=== PATIENT | female | born 1970 ===

== ENCOUNTER 2020-09-02 19:58 | Inpatient (IN) | payer MEDICAID, SELFPAY ==
[2020-09-02 20:10] VITALS: BP 138/91; PULSE 120; RESP 19; TEMP 37.1; O2SAT 86; O2SAT 99; BMI 21.9
--- NOTE | 2020-09-02 20:25 | ED.URI ---
HPI - URI/Sore Throat General Chief Complaint: Upper Respiratory Symptoms Stated Complaint: cough sob Time Seen by Provider: 09/02/20 20:25 Source: patient Mode of arrival: EMS Limitations: no limitations History of Present Illness HPI Narrative: shortness of breath for one week with fever, now with increasing shortness of breath, MD elicited complaint: fever and cough Onset (ago): day(s) Consistency: constant Severity: moderate Related Data Allergies Allergy/AdvReac Type Severity Reaction Status Date / Time apple Allergy Hives Verified 09/02/20 20:10 Review of Systems Constitutional: Constitutional: Reports no additional constitutional complaints Eyes: Eyes: Reports no additional eye complaints ENT: Denies dizziness Cardiovascular: Cardiovascular: Reports no additional cardiovascular complaints Respiratory: Respiratory: Reports as per HPI Gastrointestinal: Gastrointestinal: Reports no additional gastrointestinal complaints Genitourinary: Genitourinary: Reports no additional female genitourinary complaints Musculoskeletal: Musculoskeletal: Reports no additional musculoskeletal complaints Integumentary/Breasts: Skin/Breast: Denies rash Neurologic: Reports system reviewed and no additional complaints, except as documented, Denies dizziness and Denies Sensory deficit (Neuro) Psychiatric: Psychiatric: Denies anxiety [facility] Social History Social History Advance Directives: No Advance Directives Information Provided: No Physical Exam Vital Signs: Vital Signs: Last Vital Signs Temp 98.7 F 09/02/20 20:10 Pulse 121 H 09/02/20 21:24 Resp 19 09/02/20 20:10 BP 138/91 H 09/02/20 20:10 Pulse Ox 99 09/02/20 20:10 Body Mass Index 21.9 Const: Other: coughing short of breath Nutritional Appearance: average body habitus Orientation/consciousness: oriented to person and patient oriented x3 Limitations: no limitations HENMT: Head: Yes normal to inspection Ears: external ears normal General nose exam: Normal external nose present Mouth: Normal oral and palatal mucosa present and oropharynx normal Throat: Yes posterior oropharynx normal Eyes: General: appearance normal, both eyes and all related structures Neck: Other: supple Neck: Yes normal visual inspection Chest: Chest palpation & inspection: normal inspection of the chest Resp: Other: diffuse wheezing Cardio: Other: tachycardia Jugular venous distension: no JVD Heart sounds: S1 normal heart sound present and S2 normal heart sound present GI: Inspection: Yes normal to inspection Palpation (GI): Soft to palpation, nontender and No hepatosplenomegaly present Auscultation: normal bowel sounds : General: Yes no CVA tenderness Back/Spine/Pelvis: Back: no CVA tenderness Skin: General skin exam: no rashes or lesions noted Neuro: General: oriented to person and patient oriented x3 Cranial nerves: Yes CN's II-XII intact bilaterally Motor exam (neuro): 5/5 motor strength present throughout Sensory Exam: No Sensory deficit (Neuro) Extrem: General: Yes normal to inspection Psych: Appearance: grossly normal Course Course Course Narrative: Patient with symptoms consistent with COVID, she is hypoxic and has to be admitted MDM - URI/Sore Throat Differential Diagnosis Differential diagnosis: Likely upper respiratory infection, viral infection and bronchitis Lab Data Result diagrams: 09/02/20 20:59 09/02/20 20:59 Labs: Lab Results 09/02/20 09/02/20 09/02/20 Range/Units 20:59 20:59 20:59 WBC 12.7 H (4.8-10.8) X10*3/uL RBC 5.20 (4.20-5.50) X10*6/uL Hgb 12.1 (12.0-16.0) g/dl Hct 40.4 (37-47) % MCV 77.7 L (80-98) fL MCH 23.3 L (27.0-33.0) pg MCHC 30.0 L (31.0-35.0) g/dl RDW 16.8 H (11.0-16.0) % Plt Count 523 H (160-400) X10*3/uL MPV 9.7 (9.4-12.3) fL Immature Gran % (Auto) 0.2 (0.0-0.4) % Neut % (Auto) 71.5 (45-73) % Lymph % (Auto) 11.8 L (20-40) % [place] % (Auto) 6.0 (2-11) % Eos % (Auto) 9.9 H (0-4) % Baso % (Auto) 0.6 (0-2) % Lymph # (Auto) 1.5 (1.2-4.9) X10*3/uL [place] # (Auto) 0.8 (0.1-1.2) X10*3/uL Eos # (Auto) 1.3 H (0.0-0.4) X10*3/uL Baso # (Auto) 0.1 (0.0-0.2) X10*3/uL Abs Immat Gran (auto) 0.03 (0.00-0.03) X10*3/uL Absolute Neuts (auto) 9.1 H (2.0-8.3) X10*3/uL Absolute Nucleated RBC 0.000 (0.0-0.012) X10*3/uL Nucleated RBC % (auto) 0.0 (0.0-0.2) /100WBC Sodium 142 (135-145) mmol/L Potassium 4.1 (3.3-5.1) mmol/l Chloride 104 (96-108) mmol/L Carbon Dioxide 28 (22-29) mmol/L Anion Gap 14 (12-20) BUN 15 (9-16) mg/dL Creatinine 0.87 (0.5-1.4) mg/dL Estim Creat Clear Calc 76.8 Estimated GFR > 60 Random Glucose 130 H (60-115) mg/dL Lactic Acid (0.5-2.0) mmol/L Calcium 9.3 (8.4-10.2) mg/dL Coronavirus (PCR) NEGATIVE (Negative) Influenza Type A (PCR) NEGATIVE (Negative) Influenza Type B (PCR) NEGATIVE (Negative) RSV RNA Qual (PCR) NEGATIVE (Negative) 09/02/20 Range/Units 20:59 WBC (4.8-10.8) X10*3/uL RBC (4.20-5.50) X10*6/uL Hgb (12.0-16.0) g/dl Hct (37-47) % MCV (80-98) fL MCH (27.0-33.0) pg MCHC (31.0-35.0) g/dl RDW (11.0-16.0) % Plt Count (160-400) X10*3/uL MPV (9.4-12.3) fL Immature Gran % (Auto) (0.0-0.4) % Neut % (Auto) (45-73) % Lymph % (Auto) (20-40) % [place] % (Auto) (2-11) % Eos % (Auto) (0-4) % Baso % (Auto) (0-2) % Lymph # (Auto) (1.2-4.9) X10*3/uL [place] # (Auto) (0.1-1.2) X10*3/uL Eos # (Auto) (0.0-0.4) X10*3/uL Baso # (Auto) (0.0-0.2) X10*3/uL Abs Immat Gran (auto) (0.00-0.03) X10*3/uL Absolute Neuts (auto) (2.0-8.3) X10*3/uL Absolute Nucleated RBC (0.0-0.012) X10*3/uL Nucleated RBC % (auto) (0.0-0.2) /100WBC Sodium (135-145) mmol/L Potassium (3.3-5.1) mmol/l Chloride (96-108) mmol/L Carbon Dioxide (22-29) mmol/L Anion Gap (12-20) BUN (9-16) mg/dL Creatinine (0.5-1.4) mg/dL Estim Creat Clear Calc Estimated GFR Random Glucose (60-115) mg/dL Lactic Acid 1.3 (0.5-2.0) mmol/L Calcium (8.4-10.2) mg/dL Coronavirus (PCR) (Negative) Influenza Type A (PCR) (Negative) Influenza Type B (PCR) (Negative) RSV RNA Qual (PCR) (Negative) Discharge Plan Discharge Clinical Impression: Viral infection, Hypoxia Upper respiratory infection Qualifiers: URI type: unspecified viral URI Qualified Code(s): J06.9 - Acute upper respiratory infection, unspecified Patient Disposition: Admitted As Inpatient
--- NOTE | 2020-09-02 20:38 | XR_ITS ---
EXAMINATION: XR CHEST CLINICAL INFORMATION: Shortness of breath. Likely Covid. COMPARISON: None TECHNIQUE: Frontal view of the chest was obtained. FINDINGS: Cardiac silhouette is normal in size. The lungs are well aerated. Subtle coarsening of the interstitial markings, nonspecific. No pleural effusion or pneumothorax. XR/XR chest 1V IMPRESSION: Subtle diffuse coarsening of the interstitial markings. This is a nonspecific finding, however, would be consistent with a mild viral infiltrate. Follow-up imaging recommended status post treatment to ensure resolution.
[2020-09-02 21:08] LABS: MANUAL DIFF FLAG NO
[2020-09-02 21:11] LABS: Basophils Absolute Auto 0.1 X10*3/uL (0.0-0.2); Basophils Percent Auto 0.6 % (0-2); Eosinophils Absolute Auto 1.3 X10*3/uL (0.0-0.4); Eosinophils Percent Auto 9.9 % (0-4); Hematocrit 40.4 % (37-47); Hemoglobin 12.1 g/dl (12.0-16.0); Imm Gran Abs Auto 0.03 X10*3/uL (0.00-0.03); Imm Gran Pct Auto 0.2 % (0.0-0.4); Lymphocytes Absolute Auto 1.5 X10*3/uL (1.2-4.9); Lymphocytes Percent Auto 11.8 % (20-40); Mean Corpuscular Hemoglobin 23.3 pg (27.0-33.0); Mean Corpuscular Volume 77.7 fL (80-98); Mean Platelet Volume 9.7 fL (9.4-12.3); Monocytes Absolute Auto 0.8 X10*3/uL (0.1-1.2); Neutrophils Absolute Auto 9.1 X10*3/uL (2.0-8.3); Neutrophils Percent Auto 71.5 % (45-73); Platelet Count 523 X10*3/uL (160-400); Red Cell Distribution Width 16.8 % (11.0-16.0); White Blood Count 12.7 X10*3/uL (4.8-10.8)
[2020-09-02] MEDS: Albuterol Sulfate 90 MCG 8 GM INHALER 4 PUFF INHALE (21:23)
[2020-09-02 21:24] VITALS: PULSE 121; O2SAT 98
[2020-09-02 21:34] LABS: Lactic Acid 1.3 mmol/L (0.5-2.0)
[2020-09-02 21:36] LABS: Anion Gap 14 (12-20); Blood Urea Nitrogen 15 mg/dL (9-16); Calcium 9.3 mg/dL (8.4-10.2); Carbon Dioxide 28 mmol/L (22-29); Chloride 104 mmol/L (96-108); Creatinine Clr Calc Pharmacy 76.8; Estimated Glomerular Filt Rate > 60; Glucose Random 130 mg/dL (60-115); Potassium 4.1 mmol/l (3.3-5.1); Sodium 142 mmol/L (135-145)
[2020-09-02 21:50] LABS: Influenza A PCR NEGATIVE (Negative); Influenza B PCR NEGATIVE (Negative); Resp Syncy Virus RNA Qual PCR NEGATIVE (Negative); SARS COV2 PCR INHOUSE NEGATIVE (Negative)
[2020-09-02 22:37] VITALS: BP 134/96; PULSE 117; RESP 21; TEMP 37.4; O2SAT 95
[2020-09-02 23:05] LABS: Procalcitonin 0.02 ng/mL
[2020-09-02 23:25] VITALS: BP 145/89; PULSE 106; RESP 19; TEMP 37.2; O2SAT 98
--- NOTE | 2020-09-02 23:30 | P.HPHOSP_ITS ---
History of Present Illness Date of Service: 09/02/20 Chief Complaint: Shortness of breath This is a 50-year-old female with no significant past medical history who presents to the hospital with complaints of more than 1 week shortness of breath, coughing, sputum production. Patient is also complaining of a headache that is chronic that has been become more frequent. She also had a fever at home of 101, low appetite, low oral intake, weakness, and generalized fatigue. Patient reports that 2 of the people in her apartment building have been positive with COVID-19 and she has contact with 1 of them. She denies having any nausea or vomiting, no diarrhea, no lower extremity edema, no urinary symptoms. No change in vision, no chest pain, no palpitations. On arrival to the ED patient has a temp of 98.7?, heart rate of 120, respiratory rate of 19, blood pressure 138/91, found to be in the mid 80s on room air, with increased requirement of O2 in the ED currently on 4 L satting 88%. Bump 2 in 6 L. Labs are significant for WBC count 12.7, hemoglobin of 12.1, hematocrit of 40.4, sodium of 142, potassium 4.1, rapid COVID test negative, negative influenza, and RSV. Chest x-ray demonstrates diffuse coarsening of interstitial marking. This would be consistent with a mild viral infiltrate Past medical history: Denies Surgical history: Denies Family history: Diabetes, hypertension Social history: Comes from home, denies any tobacco alcohol or illicit drugs Review of Systems Review of Systems: Review of system is negative otherwise except for as mentioned in HPI Yes all other systems are reviewed and are negative ENT: Denies dizziness Neurologic: Reports system reviewed and no additional complaints, except as documented, Denies dizziness and Denies Sensory deficit (Neuro) [facility] Social History Alcohol intake: never Smoked in Last 30 Days: No Use of substances other than those prescribed or required for medical reasons: No Advance Directives: No Advance Directives Information Provided: No Meds Allergies Allergy/AdvReac Type Severity Reaction Status Date / Time apple Allergy Hives Verified 09/02/20 20:10 Home Medications Medication Instructions Recorded Confirmed Type No Known Home Meds 09/03/20 09/03/20 History Physical Exam Vital Signs and Narrative: Vital Signs: Last Vital Signs Temp 99.0 F 09/02/20 23:25 Pulse 106 H 09/02/20 23:25 Resp 19 09/02/20 23:25 BP 145/89 H 09/02/20 23:25 Pulse Ox 98 09/02/20 23:25 Body Mass Index 21.9 Const: General: cooperative, no acute distress and ill appearing Orientation/consciousness: patient oriented x3 Eyes: General: appearance normal, both eyes and all related structures Resp: Other: Congested, coughing during exam Effort & Inspection: normal respiratory effort and able to speak in complete sentences Cardio: Rate: regular rate Rhythm: regular rhythm GI: Palpation (GI): Soft to palpation Auscultation: normal bowel sounds Neuro: General: patient oriented x3 Cognition (Neuro): normal cognition Sensory Exam: No Sensory deficit (Neuro) Extrem: General: Yes normal to inspection and Yes no pedal edema Results Labs CBC and Chem 7: 09/02/20 20:59 09/02/20 20:59 Labs: Laboratory Results - last 24 hr 09/02/20 09/02/20 09/02/20 20:59 20:59 20:59 MCV 77.7 L MCH 23.3 L MCHC 30.0 L RDW 16.8 H Plt Count 523 H MPV 9.7 Immature Gran % (Auto) 0.2 Neut % (Auto) 71.5 Lymph % (Auto) 11.8 L [place] % (Auto) 6.0 Eos % (Auto) 9.9 H Baso % (Auto) 0.6 Lymph # (Auto) 1.5 [place] # (Auto) 0.8 Eos # (Auto) 1.3 H Baso # (Auto) 0.1 Abs Immat Gran (auto) 0.03 Absolute Neuts (auto) 9.1 H Absolute Nucleated RBC 0.000 Nucleated RBC % (auto) 0.0 Anion Gap 14 Estim Creat Clear Calc 76.8 Estimated GFR > 60 Random Glucose 130 H Lactic Acid Calcium 9.3 Procalcitonin Coronavirus (PCR) NEGATIVE Influenza Type A (PCR) NEGATIVE Influenza Type B (PCR) NEGATIVE RSV RNA Qual (PCR) NEGATIVE 09/02/20 09/02/20 20:59 20:59 MCV MCH MCHC RDW Plt Count MPV Immature Gran % (Auto) Neut % (Auto) Lymph % (Auto) [place] % (Auto) Eos % (Auto) Baso % (Auto) Lymph # (Auto) [place] # (Auto) Eos # (Auto) Baso # (Auto) Abs Immat Gran (auto) Absolute Neuts (auto) Absolute Nucleated RBC Nucleated RBC % (auto) Anion Gap Estim Creat Clear Calc Estimated GFR Random Glucose Lactic Acid 1.3 Calcium Procalcitonin 0.02 Coronavirus (PCR) Influenza Type A (PCR) Influenza Type B (PCR) RSV RNA Qual (PCR) Imaging Radiologist's Impressions: Impressions Chest X-Ray 09/02/20 20:38 IMPRESSION: Subtle diffuse coarsening of the interstitial markings. This is a nonspecific finding, however, would be consistent with a mild viral infiltrate. Follow-up imaging recommended status post treatment to ensure resolution. Assessment and Plan (1) Acute respiratory failure with hypoxia: Status: Acute (2) Pneumonia: Qualifiers: Pneumonia type: due to unspecified organism Laterality: bilateral Lung location: unspecified part of lung Qualified Code(s): J18.9 - Pneumonia, unspecified organism Status: Acute (3) Upper respiratory infection: Qualifiers: URI type: unspecified viral URI Qualified Code(s): J06.9 - Acute upper respiratory infection, unspecified Status: Acute This is a 50-year-old female with no significant past medical history who presents to the hospital with shortness of breath found to be hypoxic. # acute hypoxic respiratory failure - secondary to interstitial pneumonia although COVID-19 rapid PCR negative - had contact with COVID-19 infected person - chest x-ray typical of viral infection - hypoxic with O2 in the 80s on 4 L of oxygen Plan: - will start her on IV antibiotics, dexamethasone, - O2 supplement as required - monitor respiratory status - will also send for oral panel, strep and Legionella antigens # pneumonia - COVID-19 versus bacterial versus other viral infection - will obtain respiratory viral panel, start patient on IV antibiotics and dexamethasone, follow blood cultures - monitor respiratory status - consult infectious disease for guidance DVT prophylaxis:Lovenox
[2020-09-03] VITALS (10 sets, daily range): BP systolic 124–142; BP diastolic 71–92; PULSE 69–130; RESP 18–22; TEMP 36.4–37.2; O2SAT 92–98
[2020-09-03] MEDS: 0.9 % Sodium Chloride Flush 3 ML SYRINGE IVFLUSH ×4 (00:26→20:03)
[2020-09-03] MEDS: Benzonatate 100 MG CAPSULE 200 MG PO ×2 (03:11→17:08)
[2020-09-03 06:34] LABS: MANUAL DIFF FLAG NO
[2020-09-03 07:01] LABS: Basophils Absolute Auto 0.1 X10*3/uL (0.0-0.2); Basophils Percent Auto 0.8 % (0-2); Eosinophils Absolute Auto 1.1 X10*3/uL (0.0-0.4); Hematocrit 38.9 % (37-47); Hemoglobin 11.7 g/dl (12.0-16.0); Imm Gran Abs Auto 0.03 X10*3/uL (0.00-0.03); Imm Gran Pct Auto 0.3 % (0.0-0.4); Lymphocytes Absolute Auto 1.9 X10*3/uL (1.2-4.9); Lymphocytes Percent Auto 16.6 % (20-40); Mean Corpuscular HGB Conc 30.1 g/dl (31.0-35.0); Mean Corpuscular Hemoglobin 23.5 pg (27.0-33.0); Mean Corpuscular Volume 78.1 fL (80-98); Mean Platelet Volume 9.8 fL (9.4-12.3); Monocytes Absolute Auto 0.8 X10*3/uL (0.1-1.2); Monocytes Percent Auto 6.9 % (2-11); Neutrophils Absolute Auto 7.7 X10*3/uL (2.0-8.3); Neutrophils Percent Auto 66.4 % (45-73); Platelet Count 490 X10*3/uL (160-400); Red Blood Count 4.98 X10*6/uL (4.20-5.50); White Blood Count 11.7 X10*3/uL (4.8-10.8)
[2020-09-03 07:12] LABS: Anion Gap 14 (12-20); Blood Urea Nitrogen 15 mg/dL (9-16); Carbon Dioxide 28 mmol/L (22-29); Chloride 105 mmol/L (96-108); Creatinine Clr Calc Pharmacy 81.5; Estimated Glomerular Filt Rate > 60; Glucose Random 114 mg/dL (60-115); Sodium 143 mmol/L (135-145)
[2020-09-03] MEDS: cefTRIAXone sodium 1 GM in 0.9 % Sodium Chloride 50 ML IV (07:42)
--- NOTE | 2020-09-03 07:45 | PC.NURSE ---
Pt pale, tripoding, LS I/E wheezing throughout. Sinus tach on tele. Dr Pruitt aware, plan for 1 hour long treatment and CT of chest.
--- NOTE | 2020-09-03 07:59 | CT_ITS ---
EXAMINATION: CT ANGIOGRAM OF THE CHEST WITH AND WITHOUT CONTRAST (CT PULMONARY ANGIOGRAM FOR PE) CLINICAL INFORMATION: Reason for Exam Severe shortness of breath COVID negative COMPARISON: None TECHNIQUE: Prior to contrast administration, noncontrast localization images were obtained. Subsequently, multidetector volumetric imaging was performed from the thoracic inlet to below the diaphragms following the administration of 80 mL Omnipaque 350 intravenous contrast. No contrast reaction reported Sagittal, coronal, and MIP oblique sagittal reformatted images were obtained on the CT workstation, uploaded to PACS, and reviewed. This CT examination was performed using dose optimization techniques as appropriate, variously including the following: *Automated exposure control *Adjustment of mA and/or kV according to patient size (this includes techniques or standardized protocols for targeted exams where dose is matched to indication/reason for exam; i.e. extremities or head) *Use of iterative reconstruction technique Total exam dose-length product 226 mGy-cm FINDINGS: QUALITY OF STUDY/CONTRAST BOLUS: Satisfactory. PULMONARY ARTERIES: No central or segmental pulmonary emboli. THORACIC AORTA: No aneurysm or dissection. LUNG: The lungs are well-expanded with patchy groundglass opacity in both upper lobes adjacent to the mediastinum with peribronchial wall thickening, minimal debris within the right upper lobe bronchi,. Peribronchial thickening with minimal ground glass opacities seen in both lower lobes. No consolidation or mass seen. PLEURA: No pleural effusion or pneumothorax. MEDIASTINUM: The heart size is normal. No pericardial effusion seen. Central trachea and the bronchi widely patent. There is no abnormal mediastinal lymph nodes or mass seen. No evidence of septal bowing or right heart strain. CHEST WALL/AXILLA: No axillary or internal mammary lymphadenopathy. OSSEOUS STRUCTURES: No acute or suspicious osseous abnormality. UPPER ABDOMEN: The liver is diffusely attenuated without any focal lesion or intrahepatic ductal dilatation. Visualized spleen, pancreas and bilateral adrenal glands are unremarkable. No reflux of contrast into the hepatic veins to suggest elevated right heart pressures. CT/CT angio chest PE protocol IMPRESSION: No evidence of PE. No evidence of dissection. Bilateral upper and lower lobe disease predominantly in both upper lobes. Groundglass opacity seen in both upper lobes adjacent to the mediastinum are suspicious of Covid like inflammation. VTE: negative
[2020-09-03] MEDS: Albuterol/Iprat 2.5/0.5MG 3 ML AMPUL.NEB INHALE (08:30)
[2020-09-03] MEDS: Albuterol Sulfate (0.083%) 2.5 MG/3 ML VIAL.NEB 5 MG INHALE (08:30)
[2020-09-03] MEDS: Azithromycin 500 MG TABLET PO (09:12)
[2020-09-03] MEDS: dexAMETHasone sod phosphate 4 MG/ML VIAL 6 MG IVPUSH (09:13)
--- NOTE | 2020-09-03 09:13 | PC.NURSE ---
S/P treatment pt verbally reports feeling sl better, work of breathing sl improved. sinus tach on tele in 120s, sat 94% on 4lpm via nc. Awaiting CT scan
[2020-09-03] MEDS: iohexoL 350 MG/ML 100 ML INFUS..BTL 65 ML IV (10:01)
--- NOTE | 2020-09-03 11:48 | P.PNIM_ITS ---
Subjective Subjective Date of Service: 09/03/20 Interval History: Admitted for acute hypoxic respiratory failure Reports ongoing dry cough, no significant shortness of breath Review of Systems Review of Systems: Yes all other systems are reviewed and are negative Constitutional Constitutional: Denies chills and Denies fever(s) Cardiovascular Cardiovascular: Denies chest pain Respiratory Respiratory: Reports cough Gastrointestinal Gastrointestinal: Denies abdominal pain Physical Exam Vital Signs: Vital Signs: Last Vital Signs Temp 98.8 F 09/03/20 10:02 Pulse 127 H 09/03/20 10:02 Resp 19 09/03/20 10:02 BP 138/80 09/03/20 10:02 Pulse Ox 97 09/03/20 07:45 Body Mass Index 21.9 Const: Nutritional Appearance: well nourished Orientation/consciousness: patient oriented x3 HENMT: Head: Yes normocephalic and Yes atraumatic Eyes: Sclerae: sclerae normal Chest: Chest palpation & inspection: normal inspection of the chest Resp: Auscultation: wheezes expiratory wheezes and scattered wheezes Cardio: Rate: tachycardic Rhythm: regular rhythm GI: Palpation (GI): Soft to palpation and nontender Skin: General skin exam: no rashes or lesions noted Neuro: General: patient oriented x3 Cranial nerves: Yes CN's II-XII intact bilaterally and Yes Bilaterally intact EOM present Extrem: General: Yes normal to inspection Objective Data Current Medications Generic Name Dose Route Start Last Admin Trade Name Freq PRN Reason Stop Dose Admin Acetaminophen 650 mg 09/02/20 23:28 Acetaminophen 325 Mg Tablet PO Q6H PRN Pain, Mild (Pain Scale 1-3) Azithromycin 500 mg 09/03/20 06:00 09/03/20 09:12 Azithromycin 500 Mg Tablet PO 500 mg Q24H TEE Administration Benzonatate 200 mg 09/03/20 02:40 09/03/20 03:11 Benzonatate 100 Mg Capsule PO 200 mg TID PRN Administration Cough Dexamethasone Sodium Phosphate 6 mg 09/03/20 09:00 09/03/20 09:13 Dexamethasone Sod Phosphate 4 Mg/Ml Vial IVPUSH 6 mg DAILY TEE Administration Docusate Sodium 100 mg 09/02/20 23:28 Docusate Sodium 100 Mg Capsule PO DAILY PRN Constipation Enoxaparin Sodium 40 mg 09/02/20 23:30 09/03/20 02:56 Enoxaparin Sodium 40 Mg/0.4 Ml Syringe SUBCUT Not Given Q24H [facility] Ceftriaxone Sodium 1 gm/ 50 mls @ 100 mls/hr 09/03/20 06:00 09/03/20 09:12 Sodium Chloride IV Infused Q24H [facility] Infusion Ondansetron HCl 4 mg 09/02/20 23:28 Ondansetron Hcl 4 Mg/2 Ml Vial IVPUSH Q8H PRN Nausea and Vomiting Sodium Chloride 3 ml 09/03/20 00:00 09/03/20 07:42 0.9 % Sodium Chloride Flush 3 Ml Syringe IVFLUSH 3 ml QSHIFT TEE Administration Labs CBC & Chem 7: 09/03/20 06:20 09/03/20 06:20 Assessment and Plan (1) Acute respiratory failure with hypoxia: Status: Acute (2) Pneumonia: Status: Acute (3) Upper respiratory infection: Status: Acute Assessment and Plan: This is a 50-year-old female with history of anxiety who presents to the hospital with shortness of breath found to be hypoxic. acute hypoxic respiratory failure Pneumonia - viral vs bacterial vs covid19 related Imaging showing groundglass opacities, although COVID-19 rapid PCR negative -Continue ceftriaxone, azithromycin for now -Continue dexamethasone -O2 supplement as required -RPP, strep and Legionella antigens pending -ID consult pending -isolation precautions DVT prophylaxis:Lovenox This case was discussed with Dr. Christiansen
--- NOTE | 2020-09-03 12:11 | ECG_ITS ---
Test Reason : HOSP Blood Pressure : / mmHG Vent. Rate : 123 BPM Atrial Rate : 123 BPM P-R Int : 114 ms QRS Dur : 074 ms QT Int : 298 ms P-R-T Axes : 068 074 045 degrees QTc Int : 426 ms Artfiact in tracing Sinus tachycardia Cannot rule out Anterior infarct , age undetermined - more likely from lead placement Nonspecific ST and T wave abnormality Borderline ECG No previous ECGs available Referred By: Jancie Mccullough Electronically Signed By:NAHEED MEDEL
[2020-09-03 13:51] LABS: Adenovirus PCR Not Detected (Not Detect.); Bordetella parapertussis PCR Not Detected (Not Detect.); Bordetella pertussis PCR Not Detected (Not Detect.); Chlamydia pneumoniae PCR Not Detected (Not Detect.); Coronavirus 229E PCR Not Detected (Not Detect.); Coronavirus HKU1 PCR Not Detected (Not Detect.); Coronavirus NL63 PCR Not Detected (Not Detect.); Coronavirus OC43 PCR Not Detected (Not Detect.); Human metapneumovirus PCR Not Detected (Not Detect.); Influenza A PCR Not Detected (Not Detect.); Influenza B PCR Not Detected (Not Detect.); Mycoplasma pneumoniae PCR Not Detected (Not Detect.); Parainfluenza 1 PCR Not Detected (Not Detect.); Parainfluenza 2 PCR Not Detected (Not Detect.); Parainfluenza 3 PCR Not Detected (Not Detect.); Parainfluenza 4 PCR Not Detected (Not Detect.); RSV PCR Not Detected (Not Detect.); Rhino/Enterovirus PCR Not Detected (Not Detect.); SARS-CoV-2 PCR Not Detected (Not Detect.)
--- NOTE | 2020-09-03 17:39 | PC.NURSE ---
Patient sustaining in the mid to high 120s on tele, no complaint of chest pain, MD made aware. EKG : Sinus tachy, MD aware and will monitor. Patient sats 92-93% on 4.5lpm n/c. will continue to monitor.
[2020-09-03] MEDS: guaiFENesin DM 100/10/5 ML 5 ML SYRUP PO (21:40)
[2020-09-03] MEDS: Enoxaparin Sodium 40 MG/0.4 ML SYRINGE SUBCUT (22:52)
[2020-09-04] VITALS (8 sets, daily range): BP systolic 137–177; BP diastolic 82–100; PULSE 89–130; RESP 18–20; TEMP 35.7–37.1; O2SAT 5–99
[2020-09-04] MEDS: Azithromycin 500 MG TABLET PO (06:05)
[2020-09-04] MEDS: cefTRIAXone sodium 1 GM in 0.9 % Sodium Chloride 50 ML IV (06:06)
[2020-09-04] MEDS: dexAMETHasone sod phosphate 4 MG/ML VIAL 6 MG IVPUSH (08:27)
[2020-09-04] MEDS: 0.9 % Sodium Chloride Flush 3 ML SYRINGE IVFLUSH ×3 (08:27→23:21)
[2020-09-04] MEDS: 0.9 % Sodium Chloride 1,000 ML 999 ML IVCONT (10:27)
--- NOTE | 2020-09-04 10:40 | HO.PM.IMPN ---
Subjective Subjective Date of Service: 09/04/20 Review of Systems Review of Systems: Yes all other systems are reviewed and are negative Constitutional Constitutional: Denies chills and Denies fever(s) Cardiovascular Cardiovascular: Denies chest pain and Reports dyspnea Respiratory Respiratory: Reports cough and Reports dyspnea Gastrointestinal Gastrointestinal: Denies abdominal pain Physical Exam Vital Signs: Vital Signs: Last Vital Signs Temp 96.2 F L 09/04/20 08:00 Pulse 127 H 09/04/20 08:00 Resp 20 09/04/20 08:00 BP 146/100 H 09/04/20 08:00 Pulse Ox 94 09/04/20 08:00 Body Mass Index 21.9 Const: General: alert and awake Nutritional Appearance: well nourished Orientation/consciousness: patient oriented x3 HENMT: Head: Yes normocephalic and Yes atraumatic Eyes: Sclerae: sclerae normal Chest: Chest palpation & inspection: normal inspection of the chest Resp: Effort & Inspection: tachypneic Auscultation: wheezes expiratory wheezes, inspiratory wheezes and throughout Cardio: Rate: regular rate Rhythm: regular rhythm GI: Palpation (GI): Soft to palpation and nontender Skin: General skin exam: no rashes or lesions noted Neuro: General: patient oriented x3 Cranial nerves: Yes CN's II-XII intact bilaterally and Yes Bilaterally intact EOM present Extrem: General: Yes normal to inspection Objective Data Current Medications Generic Name Dose Route Start Last Admin Trade Name Freq PRN Reason Stop Dose Admin Acetaminophen 650 mg 09/02/20 23:28 Acetaminophen 325 Mg Tablet PO Q6H PRN Pain, Mild (Pain Scale 1-3) Albuterol/Ipratropium 3 ml 09/04/20 12:00 Albuterol/Iprat 2.5/0.5mg 3 Ml Ampul.Neb INHALE RQ4H WHILE AWAKE TEE Azithromycin 500 mg 09/03/20 06:00 09/04/20 06:05 Azithromycin 500 Mg Tablet PO 500 mg Q24H TEE Administration Benzonatate 200 mg 09/03/20 02:40 09/03/20 17:08 Benzonatate 100 Mg Capsule PO 200 mg TID PRN Administration Cough Dexamethasone Sodium Phosphate 6 mg 09/03/20 09:00 09/04/20 08:27 Dexamethasone Sod Phosphate 4 Mg/Ml Vial IVPUSH 6 mg DAILY TEE Administration Docusate Sodium 100 mg 09/02/20 23:28 Docusate Sodium 100 Mg Capsule PO DAILY PRN Constipation Enoxaparin Sodium 40 mg 09/02/20 23:30 09/03/20 22:52 Enoxaparin Sodium 40 Mg/0.4 Ml Syringe SUBCUT 40 mg Q24H TEE Administration Guaifenesin/Dextromethorphan 5 ml 09/03/20 21:09 09/03/20 21:40 Guaifenesin Dm 100/10/5 Ml 5 Ml Syrup PO 5 ml Q6H PRN Administration cough Ceftriaxone Sodium 1 gm/ 50 mls @ 100 mls/hr 09/03/20 06:00 09/04/20 06:51 Sodium Chloride IV Infused Q24H TEE Infusion Sodium Chloride 1,000 mls @ 999 mls/hr 09/04/20 09:41 09/04/20 10:27 Ns IVCONT 09/04/20 10:41 999 mls/hr .Q1H1M ONE Administration Levalbuterol HCl 1.25 mg 09/03/20 12:11 Levalbuterol Hcl 1.25 Mg/0.5 Ml Vial.Neb INHALE Q4H PRN Shortness of Breath Ondansetron HCl 4 mg 09/02/20 23:28 Ondansetron Hcl 4 Mg/2 Ml Vial IVPUSH Q8H PRN Nausea and Vomiting Sodium Chloride 3 ml 09/03/20 00:00 09/04/20 08:27 0.9 % Sodium Chloride Flush 3 Ml Syringe IVFLUSH 3 ml QSHIFT TEE Administration Labs CBC & Chem 7: 09/03/20 06:20 09/03/20 06:20 Microbiology Microbiology Results: Microbiology 09/02/20 20:59 Blood - Venous Blood Culture - Preliminary No growth after 24 hours. 09/02/20 20:59 Blood - Venous Blood Culture - Preliminary No growth after 24 hours. Assessment and Plan (1) Acute respiratory failure with hypoxia: Status: Acute (2) Pneumonia: Status: Acute (3) Upper respiratory infection: Status: Acute Assessment and Plan: This is a 50-year-old female with history of anxiety who presents to the hospital with shortness of breath found to be hypoxic. acute hypoxic respiratory failure Pneumonia Imaging showing groundglass opacities, although COVID-19 rapid PCR negative Respiratory pathogen panel negative -Continue ceftriaxone, azithromycin -Continue dexamethasone -Continue isolation for now -O2 supplement as required -strep and Legionella antigens pending -ID consult pending -Pulmonary consult pending sinus tachycardia likely r/t breathing treatments -check tsh, cbc DVT prophylaxis:Lovenox This case was discussed with Dr. Christiansen
[2020-09-04 10:46] LABS: Basophils Absolute Auto 0.1 X10*3/uL (0.0-0.2); Basophils Percent Auto 0.3 % (0-2); Eosinophils Absolute Auto 0.2 X10*3/uL (0.0-0.4); Eosinophils Percent Auto 0.7 % (0-4); Hematocrit 40.3 % (37-47); Hemoglobin 11.6 g/dl (12.0-16.0); Imm Gran Abs Auto 0.09 X10*3/uL (0.00-0.03); Imm Gran Pct Auto 0.4 % (0.0-0.4); Lymphocytes Absolute Auto 0.8 X10*3/uL (1.2-4.9); MANUAL DIFF FLAG SCAN; Mean Corpuscular HGB Conc 28.8 g/dl (31.0-35.0); Mean Corpuscular Hemoglobin 22.7 pg (27.0-33.0); Mean Corpuscular Volume 78.9 fL (80-98); Mean Platelet Volume 10.2 fL (9.4-12.3); Monocytes Absolute Auto 0.5 X10*3/uL (0.1-1.2); Monocytes Percent Auto 2.4 % (2-11); Neutrophils Absolute Auto 18.5 X10*3/uL (2.0-8.3); Neutrophils Percent Auto 92.2 % (45-73); Platelet Count 530 X10*3/uL (160-400); Red Blood Count 5.11 X10*6/uL (4.20-5.50); SCAN SMEAR FLAG 1; White Blood Count 20.1 X10*3/uL (4.8-10.8)
[2020-09-04 11:06] LABS: SLIDE REVIEW VERIFIED
[2020-09-04 11:26] LABS: Anion Gap 16 (12-20); Blood Urea Nitrogen 19 mg/dL (9-16); Calcium 9.4 mg/dL (8.4-10.2); Carbon Dioxide 28 mmol/L (22-29); Chloride 106 mmol/L (96-108); Creatinine Clr Calc Pharmacy 84.7; Estimated Glomerular Filt Rate > 60; Glucose Random 118 mg/dL (60-115); Potassium 4.5 mmol/l (3.3-5.1); Sodium 145 mmol/L (135-145)
[2020-09-04 11:31] LABS: Erythrocyte Sedimentation Rate 10 MM/HR (0-20)
[2020-09-04 11:49] LABS: TSH reflex Free T4 0.08 mIU/mL (0.32-4.0)
[2020-09-04] MEDS: guaiFENesin DM 100/10/5 ML 5 ML SYRUP PO (12:25)
[2020-09-04 12:28] LABS: Free T4 (Free Thyroxine) 1.25 ng/dL (0.71-1.85)
[2020-09-04 14:03] LABS: SARS COV2 IgG Negative (Negative)
[2020-09-04] MEDS: Acetaminophen 325 MG TABLET 650 MG PO (15:28)
[2020-09-04] MEDS: Albuterol/Iprat 2.5/0.5MG 3 ML AMPUL.NEB INHALE ×2 (16:40→19:55)
[2020-09-04] MEDS: Benzonatate 100 MG CAPSULE 200 MG PO (18:03)
--- NOTE | 2020-09-04 21:11 | W.PM.IDCN ---
History of Present Illness Data of Consult Service Date: 09/03/20 Requesting physician: Jimmy Christiansen Primary Care Provider: Unknown Physician HPI Reason for consult: shortness of breath She presents to hospital with shortness of breath for a week She has some people in her building with COVID but she doesnt have contact with them She has no fever or chills Procalcitonin is negative Review of Systems Cardiovascular: Cardiovascular: Reports dyspnea Respiratory: Respiratory: Reports chest congestion and Reports dyspnea PMFSH Social History Social History Household Members: Other Housing: Apartment Alcohol intake: never Smoking Status: Never smoker Second Hand Smoke Exposure: No service: No Current occupational status: unemployed Meds Allergies Allergy/AdvReac Type Severity Reaction Status Date / Time apple Allergy Hives Verified 09/02/20 20:10 Home Medications Medication Instructions Recorded Confirmed Type No Known Home Meds 09/03/20 09/03/20 History Physical Exam Vital Signs: Vital Signs: Last Vital Signs Temp 97.6 F 09/04/20 20:00 Pulse 108 H 09/04/20 20:00 Resp 18 09/04/20 20:00 BP 139/85 09/04/20 20:00 Pulse Ox 99 09/04/20 20:00 Body Mass Index 21.9 Const: General: cooperative Limitations: language barrier HENMT: Head: Yes normal to inspection Mouth: Normal oral and palatal mucosa present Neck: Neck: Yes normal visual inspection Resp: Effort & Inspection: normal respiratory effort and able to speak in complete sentences Cardio: Rate: regular rate Rhythm: regular rhythm GI: Palpation (GI): Soft to palpation and nontender Skin: General skin exam: no rashes or lesions noted Assessment and Plan (1) Pneumonia: Qualifiers: Laterality: bilateral Lung location: unspecified part of lung Pneumonia type: due to unspecified organism Qualified Code(s): J18.9 - Pneumonia, unspecified organism Status: Acute Would continue Azithromycin at this time May stop Ceftriaxone as not likely to be bacterial ,no lobar pneumonia Would continue respiratory isolation in case false negative COVID and may give Dexamethasone (2) Acute respiratory failure with hypoxia: Status: Acute Results Labs CBC & Chem 7: 09/06/20 05:51 09/05/20 05:28 Labs: Short CBC 09/04/20 Range/Units 10:06 WBC 20.1 H (4.8-10.8) X10*3/uL Hgb 11.6 L (12.0-16.0) g/dl Hct 40.3 (37-47) % Plt Count 530 H (160-400) X10*3/uL BMP 09/04/20 10:06 Sodium 145 Potassium 4.5 Chloride 106 Carbon Dioxide 28 BUN 19 H Creatinine 0.79 Calcium 9.4 Microbiology Microbiology Results: Microbiology 09/02/20 20:59 Blood - Venous Blood Culture - Preliminary No growth after 24 hours. 09/02/20 20:59 Blood - Venous Blood Culture - Preliminary No growth after 24 hours.
[2020-09-04 21:22] LABS: Amphetamine Screen Urine Not Detected (Not Detect); Barbiturates, Urine Not Detected (Not Detect); Benzodiazepines Screen Urine Not Detected (Not Detect); Cannabinoid Screen Urine Not Detected (Not Detect); Cocaine Screen Urine Not Detected (Not Detect); Opiate Screen Urine Not Detected (Not Detect); Phencyclidine Screen Urine Not Detected (Not Detect)
[2020-09-04] MEDS: Enoxaparin Sodium 40 MG/0.4 ML SYRINGE SUBCUT (23:17)
[2020-09-05] VITALS (11 sets, daily range): BP systolic 128–161; BP diastolic 79–98; PULSE 92–129; RESP 18–20; TEMP 36.1–37.7; O2SAT 93–98
[2020-09-05] MEDS: Benzonatate 100 MG CAPSULE 200 MG PO (00:45)
[2020-09-05 04:03] LABS: HIV AB/AG Nonreactive (Nonreactive); HIV Num 1 0.05 S/CO (0.00-0.99)
[2020-09-05] MEDS: Azithromycin 500 MG TABLET PO (05:35)
[2020-09-05 06:50] LABS: MANUAL DIFF FLAG NO
[2020-09-05] MEDS: Albuterol/Iprat 2.5/0.5MG 3 ML AMPUL.NEB INHALE ×4 (07:07→20:04)
[2020-09-05 07:15] LABS: Basophils Absolute Auto 0.1 X10*3/uL (0.0-0.2); Basophils Percent Auto 0.4 % (0-2); Eosinophils Absolute Auto 0.5 X10*3/uL (0.0-0.4); Eosinophils Percent Auto 2.4 % (0-4); Hematocrit 36.5 % (37-47); Hemoglobin 10.5 g/dl (12.0-16.0); Imm Gran Abs Auto 0.07 X10*3/uL (0.00-0.03); Imm Gran Pct Auto 0.4 % (0.0-0.4); Lymphocytes Absolute Auto 2.3 X10*3/uL (1.2-4.9); Lymphocytes Percent Auto 12.2 % (20-40); Mean Corpuscular HGB Conc 28.8 g/dl (31.0-35.0); Mean Corpuscular Hemoglobin 22.7 pg (27.0-33.0); Mean Corpuscular Volume 78.8 fL (80-98); Mean Platelet Volume 10.5 fL (9.4-12.3); Monocytes Absolute Auto 1.4 X10*3/uL (0.1-1.2); Monocytes Percent Auto 7.6 % (2-11); Neutrophils Absolute Auto 14.4 X10*3/uL (2.0-8.3); Platelet Count 450 X10*3/uL (160-400); Red Blood Count 4.63 X10*6/uL (4.20-5.50); Red Cell Distribution Width 16.9 % (11.0-16.0); White Blood Count 18.7 X10*3/uL (4.8-10.8)
[2020-09-05 07:30] LABS: Anion Gap 13 (12-20); Blood Urea Nitrogen 20 mg/dL (9-16); Calcium 8.9 mg/dL (8.4-10.2); Carbon Dioxide 30 mmol/L (22-29); Chloride 106 mmol/L (96-108); Estimated Glomerular Filt Rate > 60; Glucose Random 89 mg/dL (60-115); Potassium 4.2 mmol/l (3.3-5.1); Sodium 145 mmol/L (135-145)
[2020-09-05] MEDS: dexAMETHasone sod phosphate 4 MG/ML VIAL 6 MG IVPUSH (07:48)
[2020-09-05] MEDS: 0.9 % Sodium Chloride Flush 3 ML SYRINGE IVFLUSH ×3 (07:49→22:06)
--- NOTE | 2020-09-05 11:01 | HO.PM.IMPN ---
Subjective Subjective Date of Service: 09/05/20 Interval History: Able to bring up some phlegm and feeling somewhat better this morning. Still requiring 4-5L o2 via NC Review of Systems Review of Systems: Yes all other systems are reviewed and are negative Constitutional Constitutional: Denies fever(s) Cardiovascular Cardiovascular: Denies chest pain Respiratory Respiratory: Reports chest congestion and Reports cough Gastrointestinal Gastrointestinal: Denies abdominal pain Physical Exam Vital Signs: Vital Signs: Last Vital Signs Temp 97.6 F 09/05/20 08:00 Pulse 104 H 09/05/20 08:00 Resp 20 09/05/20 08:00 BP 133/79 09/05/20 08:00 Pulse Ox 98 09/05/20 08:00 Body Mass Index 21.9 Const: Nutritional Appearance: well nourished Orientation/consciousness: patient oriented x3 HENMT: Head: Yes normocephalic and Yes atraumatic Eyes: Sclerae: sclerae normal Chest: Chest palpation & inspection: normal inspection of the chest Resp: Auscultation: wheezes and diminished lung sounds Cardio: Rate: regular rate Rhythm: regular rhythm GI: Palpation (GI): Soft to palpation and nontender Skin: General skin exam: no rashes or lesions noted Neuro: General: patient oriented x3 Cranial nerves: Yes CN's II-XII intact bilaterally and Yes Bilaterally intact EOM present Extrem: General: Yes normal to inspection Objective Data Current Medications Generic Name Dose Route Start Last Admin Trade Name Freq PRN Reason Stop Dose Admin Acetaminophen 650 mg 09/02/20 23:28 09/04/20 15:28 Acetaminophen 325 Mg Tablet PO 650 mg Q6H PRN Administration Pain, Mild (Pain Scale 1-3) Albuterol/Ipratropium 3 ml 09/04/20 12:00 09/05/20 07:07 Albuterol/Iprat 2.5/0.5mg 3 Ml Ampul.Neb INHALE 3 ml RQ4H WHILE AWAKE TEE Administration Azithromycin 500 mg 09/03/20 06:00 09/05/20 05:35 Azithromycin 500 Mg Tablet PO 500 mg Q24H TEE Administration Benzonatate 200 mg 09/03/20 02:40 09/05/20 00:45 Benzonatate 100 Mg Capsule PO 200 mg TID PRN Administration Cough Dexamethasone Sodium Phosphate 6 mg 09/03/20 09:00 09/05/20 07:48 Dexamethasone Sod Phosphate 4 Mg/Ml Vial IVPUSH 6 mg DAILY TEE Administration Docusate Sodium 100 mg 09/02/20 23:28 Docusate Sodium 100 Mg Capsule PO DAILY PRN Constipation Enoxaparin Sodium 40 mg 09/02/20 23:30 09/04/20 23:17 Enoxaparin Sodium 40 Mg/0.4 Ml Syringe SUBCUT 40 mg Q24H TEE Administration Guaifenesin/Dextromethorphan 5 ml 09/03/20 21:09 09/04/20 12:25 Guaifenesin Dm 100/10/5 Ml 5 Ml Syrup PO 5 ml Q6H PRN Administration cough Levalbuterol HCl 1.25 mg 09/03/20 12:11 Levalbuterol Hcl 1.25 Mg/0.5 Ml Vial.Neb INHALE Q4H PRN Shortness of Breath Ondansetron HCl 4 mg 09/02/20 23:28 Ondansetron Hcl 4 Mg/2 Ml Vial IVPUSH Q8H PRN Nausea and Vomiting Sodium Chloride 3 ml 09/03/20 00:00 09/05/20 07:49 0.9 % Sodium Chloride Flush 3 Ml Syringe IVFLUSH 3 ml QSHIFT TEE Administration Labs CBC & Chem 7: 09/05/20 05:28 09/05/20 05:28 Microbiology Microbiology Results: Microbiology 09/02/20 20:59 Blood - Venous Blood Culture - Preliminary No growth after 48 hours. 09/02/20 20:59 Blood - Venous Blood Culture - Preliminary No growth after 48 hours. Assessment and Plan (1) Acute respiratory failure with hypoxia: Status: Acute (2) Pneumonia: Problem details: There seems to be no evidence of present or past COVID There is possible Legionella ,doubt HIV There is also less likely bacterial infection, as procalcitonin negative Status: Acute (3) Upper respiratory infection: Status: Acute Assessment and Plan: This is a 50-year-old female with history of anxiety who presents to the hospital with shortness of breath found to be hypoxic. acute hypoxic respiratory failure Pneumonia Imaging showing groundglass opacities. COVID-19 rapid PCR negative. RPP negative. Covid Igg negative ID rec - less likely bacterial due to low procalcitonin. d/c ceftriaxone. Continue Azithro -Continue steroids -Continue isolation for now -O2 supplement as required -strep and Legionella antigens pending -Pulmonary consult pending sinus tachycardia. improving likely r/t breathing treatments tsh 0.08, free t4 1.25 may be due to acute illness. recommend repeat thyroid function as outpatient h/h drifted down slightly no sign of active bleeding follow CBC DVT prophylaxis:Lovenox This case was discussed with Dr. Christiansen
--- NOTE | 2020-09-05 16:04 | MHC.CM.PN ---
CM ATTEMPTING TO REACH PT, WHO IS ON [employer], AT PHONE NUMBER LISTED [phone]. CALL GOES TO , MESSAGE LEFT REQUESTING RETURN CALL. CM WILL ATTEMPT TO REACH PT AGAIN TOMORROW. LEGAL ADMINISTRATIVE ASSISTANT COMPLETED USING EMR. PER RECORDS, PT LIVES ALONE AND IS INDEPENDENT WITH SELF CARE. PTS PCP DURING PREVIOUS ADMISSION WAS SRINIVAS GUAJARDO, CM CAN VERIFY ON SUNDAY. PT DOES NOT HAVE A HCP ON FILE. CURRENT DC PLAN IS HOME WITH NO SERVICES TRANSPORTATION TBD ONCE CM ABLE TO REACH PT
--- NOTE | 2020-09-05 17:03 | PC.NURSE ---
Patient was weaned from 4.5L to 2L O2 via nasal cannula. Currently sating 95% on 2L. Still wheezing with productive cough. Using PRN inhaler throughout day. Pulmonary saw patient today, changed IVpush Decadron to IVpush Solumedrol, first dose 1999. On continuous pulse ox. Patient does desat to 80s with ambulation, even with walking O2 tank. Patient is low fall risk, uses call [place] appropriately.
[2020-09-05] MEDS: Enoxaparin Sodium 40 MG/0.4 ML SYRINGE SUBCUT (22:05)
[2020-09-05] MEDS: methylPREDNISolone Sod Succ/PF 125 MG/2 ML VIAL 60 MG IVPUSH (22:05)
--- NOTE | 2020-09-05 22:07 | CONS_ITS ---
DATE OF SERVICE: 09/05/2020 INDICATION: Acute respiratory failure. HISTORY OF PRESENT ILLNESS: Ms. Mcrae is a 50-year-old woman with known history of allergies, who apparently was in her usual state of health until about a week ago or so when she started developing worsening shortness of breath, cough productive in nature, green in color, extensive of an amount. She also complained of headaches and to some degree, those are chronic. She felt febrile and had a temperature of 101. She was brought to the [facility] ED, where she was found to be tachycardic and tachypneic and hypoxic down to the 80s. She was placed on 4 L of oxygen and subsequently required 6 L for some time. Her blood work demonstrated a negative COVID test and also antibodies were negative. Therefore, she had an abnormal chest x-ray and then ultimately underwent a CAT scan of the chest demonstrating some ground-glass opacities, but primarily in the periphery in the upper lung zones, which is different from COVID, also with some bronchiectasis or bronchiectatic changes primarily at the bases. Therefore, the patient was kept COVID precaution just in case, was given Decadron and has been doing about the same. The patient denies any drug use. Denies any exposure to any fumes or toxins except the cleaning agency used to clean the hallways of her home. Denies any exposure to any pests or any pets. I need to ask her directly about birds, so I forgot to ask her about that. REVIEW OF SYSTEMS: Ten systems reviewed. Complains of the constitutional as stated above. Complains of the respiratory symptoms as stated above. Denies any cardiac symptoms. Denies any GI or symptoms. Denies any musculoskeletal symptoms. Denies any rashes. The rest of the 10-organ system is negative. PAST MEDICAL HISTORY: Again, she says allergies, but unclear. Never been diagnosed with asthma. Otherwise, pretty unremarkable. PAST SURGICAL HISTORY: No surgical history. FAMILY HISTORY: Positive for diabetes and hypertension. SOCIAL HISTORY: She lives at home. Denies any alcohol, drugs, or any smoking. ALLERGIES: PLEASE REFER TO THE MAR FOR THE FULL LIST TO APPLES. MEDICATIONS: Currently, the patient has been on Decadron 6 mg daily in addition to Lovenox, , azithromycin, levalbuterol, DuoNeb among others. PHYSICAL EXAMINATION: VITAL SIGNS: Stable. Still saturating 98% on 4.5 L, low tachycardic. GENERAL: Pleasant woman, no acute distress. HEENT: Pupils equal and reactive to light. Oropharynx is clear. NECK: Supple. LUNGS: With a very congested cough, difficult to expectorate and very diminished throughout and some wheezing appreciated in the end-expiratory, possibly some pleural rub and difficult to auscultate with . CARDIAC: Regular rhythm and regular rate. ABDOMEN: Positive bowel sounds. Soft. EXTREMITIES: No clubbing or cyanosis. No rashes noted. LABORATORY DATA: Initially on presentation, she has significant eosinophilia of 9.9%, that quickly improved after the start of the Decadron. She has a white count of 18.7 due to leukocytosis, hemoglobin is 10.5, platelet count is 450. Tox screen was negative as far as serology, she had a complete viral panel was negative. She had HIV test that was negative. Her SARs-CoV-2 was negative x2, and her antibodies were also negative x1. One is being repeated. IgE is pending. COLLINS is pending. Tox screen is negative. Sedimentation rate was noted to be 10. IMAGING STUDIES: She has had a CT scan of the chest, which was personally reviewed by me. This is done 09/03, does have some pleural-based ground-glass opacities in the upper lung zones and also has evidence of bronchiectasis or bronchiectatic changes throughout the airways suggesting some degree of chronicity to this. Has some pulmonary nodules also noted. Again, significant signet ring size primarily in the bases from bronchiectasis along with other nodular densities. The degree of pulmonary manifestations is not quite correlate with the amount of oxygen requirements. ASSESSMENT: Ms. Mcrae is a 50-year-old woman with a known history of allergies, presenting with worsening respiratory symptoms and fevers. IMPRESSION: 1. Acute hypoxic respiratory failure. The patient does have some evidence of pleural-based ground-glass opacities with dense areas of airspace disease primarily in the upper lung zones, not consistent with COVID, more striking as a degree of bronchiectasis and likely mucus plugging that is likely contributing to her degree of hypoxia. 2. Pneumonitis. The patient has a peripheral base pneumonitis in the upper lung zones and also in the periphery, this is very typical of either hypersensitivity pneumonitis or a type of acute on chronic eosinophilic pneumonia. 3. Bronchiectasis with exacerbation, significant mucus burden, significant hypoxia likely from mucus plugging. Unfortunately, we do not have any cultures available, but we will try to get a sputum culture, thus I think she may have an enteric organism that is contributing to the lack of response to therapy at this time. RECOMMENDATIONS: 1. We will get a sputum sample. 2. CPT with a flutter valve. 3. Continue with nebulized therapy. 4. Awaiting for additional laboratory data. 5. We will add Breo. 6. If her next COVID antibody test is negative, she has had 2 negative swabs and this suggests the picture is not consistent with COVID and we will feel comfortable recommending moving precautions at this time. 7. The patient may need a bronchoscopy if especially she is unable to improve her oxygenation as she may have a lot of mucus plugging that may need clearance and also if we can get a good specimen for sputum culture, we can get some deep cultures as well. Further recommendation based on forthcoming data. By the way, I also switched her Decadron to Solu-Medrol higher dose to try to alleviate her symptoms. MD TALIA Chapman/OLIVIER / [id number]
[2020-09-05 22:43] LABS: Cyclic Citrullinated Peptide <16 UNITS
[2020-09-06] VITALS (11 sets, daily range): BP systolic 112–145; BP diastolic 61–80; PULSE 75–110; RESP 18–20; TEMP 36.8–37; O2SAT 92–96
[2020-09-06] MEDS: methylPREDNISolone Sod Succ/PF 125 MG/2 ML VIAL 60 MG IVPUSH ×3 (03:59→22:02)
[2020-09-06] MEDS: guaiFENesin DM 100/10/5 ML 5 ML SYRUP PO (04:05)
[2020-09-06 04:11] LABS: SARS COV2 IgG Negative (Negative)
[2020-09-06 06:15] LABS: Hematocrit 33.7 % (37-47); Hemoglobin 10.1 g/dl (12.0-16.0); Imm Gran Abs Auto 0.05 X10*3/uL (0.00-0.03); Imm Gran Pct Auto 0.5 % (0.0-0.4); Lymphocytes Absolute Auto 0.7 X10*3/uL (1.2-4.9); Lymphocytes Percent Auto 6.8 % (20-40); MANUAL DIFF FLAG SCAN; Mean Corpuscular Hemoglobin 22.6 pg (27.0-33.0); Mean Corpuscular Volume 75.6 fL (80-98); Monocytes Absolute Auto 0.1 X10*3/uL (0.1-1.2); Neutrophils Absolute Auto 9.9 X10*3/uL (2.0-8.3); Neutrophils Percent Auto 91.7 % (45-73); Platelet Count 431 X10*3/uL (160-400); Red Blood Count 4.46 X10*6/uL (4.20-5.50); Red Cell Distribution Width 16.8 % (11.0-16.0); SCAN SMEAR FLAG 1; White Blood Count 10.8 X10*3/uL (4.8-10.8)
[2020-09-06] MEDS: Azithromycin 500 MG TABLET PO (06:36)
[2020-09-06] MEDS: 0.9 % Sodium Chloride Flush 3 ML SYRINGE IVFLUSH ×3 (07:20→22:02)
--- NOTE | 2020-09-06 07:53 | HO.PM.IMPN ---
Subjective Subjective Date of Service: 09/07/20 Interval History: Acute hypoxemic respiratory failure secondary to pneumonitis Review of Systems Patient says shortness of breath slowly improving, has some cough and pleurisy. Otherwise denies any fever or chills or nausea or vomiting. Physical Exam Vital Signs: Vital Signs: Last Vital Signs Temp 98.6 F 09/06/20 04:00 Pulse 80 09/06/20 04:00 Resp 18 09/06/20 04:00 BP 123/72 09/06/20 04:00 Pulse Ox 96 09/06/20 04:00 Body Mass Index 21.9 Physical exam: Constitutional: Not in acute distress Cvs: rrr, [id number] , no murmur res: fair air entry, no rhonchi or wheezing. abd: no rebound or guarding ,nt, bs present. ext pulses present , no cyanosis neuro: axo3 , nonfocal. Objective Data Current Medications Generic Name Dose Route Start Last Admin Trade Name Freq PRN Reason Stop Dose Admin Acetaminophen 650 mg 09/02/20 23:28 09/04/20 15:28 Acetaminophen 325 Mg Tablet PO 650 mg Q6H PRN Administration Pain, Mild (Pain Scale 1-3) Albuterol/Ipratropium 3 ml 09/04/20 12:00 09/05/20 20:04 Albuterol/Iprat 2.5/0.5mg 3 Ml Ampul.Neb INHALE 3 ml RQ4H WHILE AWAKE TEE Administration Azithromycin 500 mg 09/03/20 06:00 09/06/20 06:36 Azithromycin 500 Mg Tablet PO 500 mg Q24H TEE Administration Benzonatate 200 mg 09/03/20 02:40 09/05/20 00:45 Benzonatate 100 Mg Capsule PO 200 mg TID PRN Administration Cough Docusate Sodium 100 mg 09/02/20 23:28 Docusate Sodium 100 Mg Capsule PO DAILY PRN Constipation Enoxaparin Sodium 40 mg 09/02/20 23:30 09/05/20 22:05 Enoxaparin Sodium 40 Mg/0.4 Ml Syringe SUBCUT 40 mg Q24H TEE Administration Fluticasone/Vilanterol 1 puff 09/06/20 08:00 Fluticasone/Vilanterol 200/25 Blst.W.Dev INHALE RDAILY TEE Guaifenesin/Dextromethorphan 5 ml 09/03/20 21:09 09/06/20 04:05 Guaifenesin Dm 100/10/5 Ml 5 Ml Syrup PO 5 ml Q6H PRN Administration cough Levalbuterol HCl 1.25 mg 09/03/20 12:11 Levalbuterol Hcl 1.25 Mg/0.5 Ml Vial.Neb INHALE Q4H PRN Shortness of Breath Methylprednisolone Sodium Succinate 60 mg 09/05/20 12:00 09/06/20 03:59 Methylprednisolone Sod Succ/Pf 125 Mg/2 Ml Vial IVPUSH 60 mg Q8H TEE Administration Ondansetron HCl 4 mg 09/02/20 23:28 Ondansetron Hcl 4 Mg/2 Ml Vial IVPUSH Q8H PRN Nausea and Vomiting Sodium Chloride 3 ml 09/03/20 00:00 09/06/20 07:20 0.9 % Sodium Chloride Flush 3 Ml Syringe IVFLUSH 3 ml QSHIFT TEE Administration Labs CBC & Chem 7: 09/06/20 05:51 09/05/20 05:28 Microbiology Microbiology Results: Microbiology 09/02/20 20:59 Blood - Venous Blood Culture - Preliminary No growth after 48 hours. 09/02/20 20:59 Blood - Venous Blood Culture - Preliminary No growth after 48 hours. Assessment and Plan (1) Pneumonia: Problem details: There seems to be no evidence of present or past COVID There is possible Legionella ,doubt HIV There is also less likely bacterial infection, as procalcitonin negative Status: Acute (2) Acute respiratory failure with hypoxia: Status: Acute (3) Upper respiratory infection: Status: Acute Assessment and Plan: This is a 50-year-old female with history of anxiety who presents to the hospital with shortness of breath found to be hypoxic. 1.acute hypoxic respiratory failure sec to Pneumonia . Imaging showing groundglass opacities. COVID-19 rapid PCR negative. Res panel neg Covid Igg negative ID following: less likely bacterial due to low procalcitonin. d/c ceftriaxone and Continue Azithro, steroids,O2 supplement as required strep and Legionella antigens pending Pulmonary consult eval noted-added breo, chest physio. 2.sinus tachycardia. improving likely r/t breathing treatments tsh 0.08, free t4 1.25 may be due to acute illness. recommend repeat thyroid function as outpatient. 3.ch anemia: h/h stable around 10 no sign of active bleeding follow CBC DVT prophylaxis:Lovenox
[2020-09-06 08:07] LABS: SLIDE REVIEW VERIFIED
[2020-09-06] MEDS: Fluticasone/Vilanterol 200/25 BLST.W.DEV 1 PUFF INHALE (08:50)
[2020-09-06] MEDS: Albuterol/Iprat 2.5/0.5MG 3 ML AMPUL.NEB INHALE ×4 (08:50→19:59)
--- NOTE | 2020-09-06 11:06 | MHC.CM.PN ---
Per ROUNDS discussion, Patient may be ready to return home, no services, in 1-2 days. Patient is receiving IV Solu Medrol and desating into the 8o's with O2/ambulation. CM will continue to follow for dc planning and possible need to adjust the dc plan.
[2020-09-06 18:41] LABS: Immunoglobulin E 787 kU/L (<OR=114)
[2020-09-06 18:41] LABS: Anti Nuclear Antibody Screen NEGATIVE (NEGATIVE)
[2020-09-06] MEDS: Enoxaparin Sodium 40 MG/0.4 ML SYRINGE SUBCUT (22:02)
[2020-09-06] MEDS: Omeprazole 20 MG CAPSULE.DR PO (22:03)
[2020-09-07] VITALS (9 sets, daily range): BP systolic 106–158; BP diastolic 61–78; PULSE 76–96; RESP 18–20; TEMP 36.2–37.1; O2SAT 93–96
[2020-09-07] MEDS: methylPREDNISolone Sod Succ/PF 125 MG/2 ML VIAL 60 MG IVPUSH ×2 (05:14→11:23)
[2020-09-07] MEDS: Azithromycin 500 MG TABLET PO (05:14)
[2020-09-07] MEDS: Albuterol/Iprat 2.5/0.5MG 3 ML AMPUL.NEB INHALE ×4 (07:11→20:25)
[2020-09-07] MEDS: Fluticasone/Vilanterol 200/25 BLST.W.DEV 1 PUFF INHALE ×2 (07:12→07:55)
[2020-09-07] MEDS: guaiFEN/Codeine SF 200/20/10ML 10 ML LIQUID 5 ML PO ×2 (11:23→21:34)
[2020-09-07] MEDS: LORazepam 0.5 MG TABLET PO (11:24)
[2020-09-07] MEDS: 0.9 % Sodium Chloride Flush 3 ML SYRINGE IVFLUSH ×3 (11:24→23:25)
--- NOTE | 2020-09-07 15:09 | HO.PM.IMPN ---
Subjective Subjective Date of Service: 09/07/20 Interval History: Pneumonia Review of Systems Shortness of breath improving still has some cough and headache. Denies any chest pain or abdominal pain or nausea or vomiting Physical Exam Vital Signs: Vital Signs: Last Vital Signs Temp 97.1 F 09/07/20 11:10 Pulse 90 09/07/20 11:14 Resp 18 09/07/20 11:10 BP 145/78 H 09/07/20 11:10 Pulse Ox 96 09/07/20 11:10 Body Mass Index 21.9 Physical exam: Constitutional: Not in acute distress Cvs: rrr, [id number] , no murmur res: air entry improving, no rhonchi or wheezing. abd: no rebound or guarding ,nt, bs present. ext pulses present , no cyanosis neuro: axo3 , nonfocal. Objective Data Current Medications Generic Name Dose Route Start Last Admin Trade Name Freq PRN Reason Stop Dose Admin Acetaminophen 650 mg 09/02/20 23:28 09/04/20 15:28 Acetaminophen 325 Mg Tablet PO 650 mg Q6H PRN Administration Pain, Mild (Pain Scale 1-3) Albuterol/Ipratropium 3 ml 09/04/20 12:00 09/07/20 15:08 Albuterol/Iprat 2.5/0.5mg 3 Ml Ampul.Neb INHALE 3 ml RQ4H WHILE AWAKE TEE Administration Azithromycin 500 mg 09/03/20 06:00 09/07/20 05:14 Azithromycin 500 Mg Tablet PO 500 mg Q24H TEE Administration Benzonatate 200 mg 09/03/20 02:40 09/05/20 00:45 Benzonatate 100 Mg Capsule PO 200 mg TID PRN Administration Cough Docusate Sodium 100 mg 09/02/20 23:28 Docusate Sodium 100 Mg Capsule PO DAILY PRN Constipation Enoxaparin Sodium 40 mg 09/02/20 23:30 09/06/20 22:02 Enoxaparin Sodium 40 Mg/0.4 Ml Syringe SUBCUT 40 mg Q24H TEE Administration Fluticasone/Vilanterol 1 puff 09/07/20 08:00 09/07/20 07:55 Fluticasone/Vilanterol 200/25 Blst.W.Dev INHALE 1 puff RDAILY TEE Administration Guaifenesin/Codeine Phosphate 5 ml 09/07/20 10:00 09/07/20 11:23 Guaifen/Codeine Sf 200/20/10ml 10 Ml Liquid PO 5 ml Q4H TEE Administration Levalbuterol HCl 1.25 mg 09/03/20 12:11 Levalbuterol Hcl 1.25 Mg/0.5 Ml Vial.Neb INHALE Q4H PRN Shortness of Breath Lorazepam 0.5 mg 09/07/20 09:36 09/07/20 11:24 Lorazepam 0.5 Mg Tablet PO 0.5 mg BID PRN Administration anxiety/restlessness Methylprednisolone Sodium Succinate 60 mg 09/05/20 12:00 09/07/20 11:23 Methylprednisolone Sod Succ/Pf 125 Mg/2 Ml Vial IVPUSH 60 mg Q8H TEE Administration Omeprazole 20 mg 09/06/20 21:00 09/06/20 22:03 Omeprazole 20 Mg Capsule.Dr PO 20 mg BEDTIME TEE Administration Ondansetron HCl 4 mg 09/02/20 23:28 Ondansetron Hcl 4 Mg/2 Ml Vial IVPUSH Q8H PRN Nausea and Vomiting Sodium Chloride 3 ml 09/03/20 00:00 09/07/20 11:24 0.9 % Sodium Chloride Flush 3 Ml Syringe IVFLUSH 3 ml QSHIFT TEE Administration Labs CBC & Chem 7: 09/06/20 05:51 09/05/20 05:28 Microbiology Microbiology Results: Microbiology 09/05/20 18:11 Sputum - Expectorated Gram Stain - Final 09/05/20 18:11 Sputum - Expectorated Sputum Culture - Final 09/02/20 20:59 Blood - Venous Blood Culture - Preliminary No growth after 48 hours. 09/02/20 20:59 Blood - Venous Blood Culture - Preliminary No growth after 48 hours. Assessment and Plan (1) Pneumonia: Problem details: There seems to be no evidence of present or past COVID There is possible Legionella ,doubt HIV There is also less likely bacterial infection, as procalcitonin negative Status: Acute (2) Acute respiratory failure with hypoxia: Status: Acute (3) Viral infection: Status: Acute (4) Upper respiratory infection: Status: Acute Assessment and Plan: 50-year-old female with history of anxiety who presents to the hospital with shortness of breath found to be hypoxic. 1.acute hypoxic respiratory failure sec to Pneumonia . Imaging showing groundglass opacities. COVID-19 rapid PCR negative. Res panel neg Covid Igg negative ID following: less likely bacterial due to low procalcitonin. d/c ceftriaxone and Continue Azithro, steroids,O2 supplement as required strep and Legionella antigens pending Pulmonary consult eval noted-continue breo, chest physio. 2.sinus tachycardia. improving likely r/t breathing treatments tsh 0.08, free t4 1.25 may be due to acute illness. recommend repeat thyroid function as outpatient. 3.ch anemia: h/h stable around 10 no sign of active bleeding follow CBC oob DVT prophylaxis:Lovenox
[2020-09-07 20:57] LABS: Legionella Ag Urine Not Detected (Not Detected)
[2020-09-07] MEDS: Omeprazole 20 MG CAPSULE.DR PO (21:34)
[2020-09-07] MEDS: Enoxaparin Sodium 40 MG/0.4 ML SYRINGE SUBCUT (21:34)
[2020-09-08] VITALS (8 sets, daily range): BP systolic 117–136; BP diastolic 72–89; PULSE 76–87; RESP 18–20; TEMP 36.3–36.8; O2SAT 94–97
[2020-09-08 01:17] LABS: Strep Pneumo Ag urine Not Detected (Not Detected)
[2020-09-08] MEDS: guaiFEN/Codeine SF 200/20/10ML 10 ML LIQUID 5 ML PO ×4 (03:33→13:13)
[2020-09-08] MEDS: Azithromycin 500 MG TABLET PO (06:20)
[2020-09-08] MEDS: Albuterol/Iprat 2.5/0.5MG 3 ML AMPUL.NEB INHALE ×3 (07:11→15:09)
[2020-09-08] MEDS: methylPREDNISolone Sod Succ/PF 125 MG/2 ML VIAL 60 MG IVPUSH (10:06)
[2020-09-08] MEDS: 0.9 % Sodium Chloride Flush 3 ML SYRINGE IVFLUSH (10:07)
--- NOTE | 2020-09-08 16:04 | MHC.CM.PN ---
Patient has been medically cleared for dc to home today, no services.
--- NOTE | 2020-09-09 11:25 | P.DS_ITS ---
DS: Providers Provider Date of Service: 09/09/20 Date of admission: 09/02/20 23:28 Primary care physician: Unknown Physician Consults: 09/03/20 05:38 Consult to Infectious Diseases Routine Consulting Provider: Kelle Calvin Reason for consultation: pna negative covid PCR, contact with covid, hypoxic Has provider been notified: No 09/04/20 09:42 Consult to Pulmonology Routine Consulting Provider: Persley Del Real Reason for consultation: respiratory failure, pneumonia Has provider been notified: No DS: Diagnosis Discharge Diagnosis (1) Pneumonia: Status: Acute (2) Acute respiratory failure with hypoxia: Status: Acute (3) Viral infection: Status: Acute (4) Upper respiratory infection: Status: Acute DS: Medications Discharge Medications Home Medications: Home Medications Medication Instructions Recorded Confirmed No Known Home Meds 09/03/20 09/03/20 Previous Rx's Medication Instructions Recorded albuterol sulfate 1 inh INHALATION Q4-6H PRN #1 ea 09/08/20 azithromycin 500 mg PO DAILY 4 Days #4 tab 09/08/20 fluticasone furoate-vilanterol 1 ea INHALATION RDAILY #28 ea 09/08/20 [Breo Ellipta] prednisone 40 mg PO DAILY #8 tab 09/08/20 DS: Summary Hospital Course Hospital Course: 50-year-old female with no significant past medical history who presents to the hospital with complaints of more than 1 week shortness of breath, coughing, sputum production. Patient is also complaining of a headache that is chronic that has been become more frequent. She also had a fever at home of 101, low appetite, low oral intake, weakness, and generalized fatigue. Patient reports that 2 of the people in her apartment building have been positive with COVID-19 and she has contact with 1 of them. She denies having any nausea or vomiting, no diarrhea, no lower extremity edema, no urinary symptoms. No change in vision, no chest pain, no palpitations. On arrival to the ED patient has a temp of 98.7?, heart rate of 120, respiratory rate of 19, blood pressure 138/91, found to be in the mid 80s on room air, with increased requirement of O2 in the ED currently on 4 L satting 88%. Bump 2 in 6 L. Labs are significant for WBC count 12.7, hemoglobin of 12.1, hematocrit of 40.4, sodium of 142, potassium 4.1, rapid COVID test negative, negative influenza, and RSV. Chest x-ray demonstrates diffuse coarsening of interstitial marking. This would be consistent with a mild viral infiltrate. Hospital Course problem patel section: Patient came to hospital because of shortness of breath and cough-found to have a probable pneumonia: Patient was started on IV antibiotics and also given steroids : Because initially suspicion was COVID, but patient is COVID test and COVID antibodies a re negative: Seen by infectious disease and pulmonary: Recommended to continue azithromycin for atypical coverage and also Pulmonary recommended to add Breo and nebs for bronchiectasis, patient will complete prednisone at home. Please repeat chest imaging in 3-4 weeks with PCP to see resolution of pneumonia. Further management outpatient as per PCP. Patient was initially also generalized weak but improving significantly seen by PT recommended to go home with no services. 2.sinus tachycardia. improved . likely r/t breathing treatments tsh 0.08, free t4 1.25 may be due to acute illness. recommend repeat thyroid function as outpatient with pcp. 3.ch anemia: h/h stable around 10 moniter cbc outpatiently , further management as per PCP. Above management discussed with the patient in detail length she understand and in agreement with the above plan, time spent 50 minutes and 50% time spent on counseling. Significant findings: As above. Procedures performed: None. Treatment and response: As above. Complications: None. Time Spent with Patient Time attestation: Total time spent providing and/or coordinating discharge services: Discharge coordination time: Greater than 30 minutes Physical Exam Vital Signs: Vital Signs: Last Vital Signs Temp 98.3 F 09/08/20 12:00 Pulse 84 09/08/20 15:10 Resp 20 09/08/20 12:00 BP 136/77 09/08/20 14:05 Pulse Ox 97 09/08/20 14:05 Body Mass Index 21.9 Physical exam: Constitutional: Not in acute distress. Cvs: rrr, [id number] , no murmur res: clear to auscultation ,no rhonchii or wheezing abd: no rebound or guarding ,nt, bs present. ext pulses present , no cyanosis neuro: axo3 , nonfocal. DS: Data Data Completed and Pending Labs on day of discharge: Laboratory Tests 09/02/20 09/02/2009/02/21 20:59 20:59 20:59 WBC 12.7 H RBC 5.20 Hgb 12.1 Hct 40.4 MCV 77.7 L MCH 23.3 L MCHC 30.0 L RDW 16.8 H Plt Count 523 H MPV 9.7 Immature Gran % (Auto) 0.2 Neut % (Auto) 71.5 Lymph % (Auto) 11.8 L [place] % (Auto) 6.0 Eos % (Auto) 9.9 H Baso % (Auto) 0.6 Lymph # (Auto) 1.5 [place] # (Auto) 0.8 Eos # (Auto) 1.3 H Baso # (Auto) 0.1 Abs Immat Gran (auto) 0.03 Absolute Neuts (auto) 9.1 H Absolute Nucleated RBC 0.000 Nucleated RBC % (auto) 0.0 Smear Tech's Comments ESR Sodium 142 Potassium 4.1 Chloride 104 Carbon Dioxide 28 Anion Gap 14 BUN 15 Creatinine 0.87 Estim Creat Clear Calc 76.8 Estimated GFR > 60 Random Glucose 130 H Lactic Acid Calcium 9.3 Procalcitonin TSH Free T4 Urine Opiates Screen Ur Barbiturates Screen Ur Phencyclidine Scrn Ur Amphetamines Screen U Benzodiazepines Scrn Urine Cocaine Screen U Marijuana (THC) Screen IgE Cycl Citrul Peptide IgG COLLINS Screen COLLINS Titer COLLINS Titer 2 COLLINS Titer 3 COLLINS Pattern COLLINS Pattern 2 COLLINS Pattern 3 Respiratory Panel Roblero Adenovirus (Rapid PCR) B.pert (TEM-PCR) B.parapertussis DNA PCR C. pneumoniae DNA (PCR) Coronavirus (PCR) NEGATIVE Coronavirus OC43 (PCR) Coronavirus HKU1 (PCR) Coronavirus 229E (PCR) Coronavirus NL63 (PCR) HIV 1&2 Ab/P24 Ag 4thGn Human Metapneumovir PCR Influenza A (RT-PCR) Influenza Type A (PCR) NEGATIVE Influenza B (RT-PCR) Influenza Type B (PCR) NEGATIVE Ur L.pneumophila Ag M. pneumoniae (PCR) Parainfluenza 1 (PCR) Parainfluenza 2 (PCR) Parainfluenza 3 (PCR) Parainfluenza 4 (PCR) RSV (PCR) RSV RNA Qual (PCR) NEGATIVE Entero/Rhino (PCR) SARS-CoV-2 RNA (RT-PCR) SARS-CoV-2 IgG Ab Ur Strep pneumoniae Ag 09/02/20 09/02/20 09/03/20 20:59 20:59 06:20 WBC 11.7 H RBC 4.98 Hgb 11.7 L Hct 38.9 MCV 78.1 L MCH 23.5 L MCHC 30.1 L RDW 17.0 H Plt Count 490 H MPV 9.8 Immature Gran % (Auto) 0.3 Neut % (Auto) 66.4 Lymph % (Auto) 16.6 L [place] % (Auto) 6.9 Eos % (Auto) 9.0 H Baso % (Auto) 0.8 Lymph # (Auto) 1.9 [place] # (Auto) 0.8 Eos # (Auto) 1.1 H Baso # (Auto) 0.1 Abs Immat Gran (auto) 0.03 Absolute Neuts (auto) 7.7 Absolute Nucleated RBC 0.000 Nucleated RBC % (auto) 0.0 Smear Tech's Comments ESR Sodium Potassium Chloride Carbon Dioxide Anion Gap BUN Creatinine Estim Creat Clear Calc Estimated GFR Random Glucose Lactic Acid 1.3 Calcium Procalcitonin 0.02 TSH Free T4 Urine Opiates Screen Ur Barbiturates Screen Ur Phencyclidine Scrn Ur Amphetamines Screen U Benzodiazepines Scrn Urine Cocaine Screen U Marijuana (THC) Screen IgE Cycl Citrul Peptide IgG COLLINS Screen COLLINS Titer COLLINS Titer 2 COLLINS Titer 3 COLLINS Pattern COLLINS Pattern 2 COLLINS Pattern 3 Respiratory Panel Rob[place]o Adenovirus (Rapid PCR) B.pert (TEM-PCR) B.parapertussis DNA PCR C. pneumoniae DNA (PCR) Coronavirus (PCR) Coronavirus OC43 (PCR) Coronavirus HKU1 (PCR) Coronavirus 229E (PCR) Coronavirus NL63 (PCR) HIV 1&2 Ab/P24 Ag 4thGn Human Metapneumovir PCR Influenza A (RT-PCR) Influenza Type A (PCR) Influenza B (RT-PCR) Influenza Type B (PCR) Ur L.pneumophila Ag M. pneumoniae (PCR) Parainfluenza 1 (PCR) Parainfluenza 2 (PCR) Parainfluenza 3 (PCR) Parainfluenza 4 (PCR) RSV (PCR) RSV RNA Qual (PCR) Entero/Rhino (PCR) SARS-CoV-2 RNA (RT-PCR) SARS-CoV-2 IgG Ab Ur Strep pneumoniae Ag 09/03/20 09/03/20 09/04/20 06:20 13:40 10:06 WBC 20.1 H RBC 5.11 Hgb 11.6 L Hct 40.3 MCV 78.9 L MCH 22.7 L MCHC 28.8 L RDW 17.0 H Plt Count 530 H MPV 10.2 Immature Gran % (Auto) 0.4 Neut % (Auto) 92.2 H Lymph % (Auto) 4.0 L [place] % (Auto) 2.4 Eos % (Auto) 0.7 Baso % (Auto) 0.3 Lymph # (Auto) 0.8 L [place] # (Auto) 0.5 Eos # (Auto) 0.2 Baso # (Auto) 0.1 Abs Immat Gran (auto) 0.09 H Absolute Neuts (auto) 18.5 H Absolute Nucleated RBC 0.000 Nucleated RBC % (auto) 0.0 Smear Tech's Comments VERIFIED ESR Sodium 143 Potassium 4.0 Chloride 105 Carbon Dioxide 28 Anion Gap 14 BUN 15 Creatinine 0.82 Estim Creat Clear Calc 81.5 Estimated GFR > 60 Random Glucose 114 Lactic Acid Calcium 9.0 Procalcitonin TSH Free T4 Urine Opiates Screen Ur Barbiturates Screen Ur Phencyclidine Scrn Ur Amphetamines Screen U Benzodiazepines Scrn Urine Cocaine Screen U Marijuana (THC) Screen IgE Cycl Citrul Peptide IgG COLLINS Screen COLLINS Titer COLLINS Titer 2 COLLINS Titer 3 COLLINS Pattern COLLINS Pattern 2 COLLINS Pattern 3 Respiratory Panel Roblero See Note Adenovirus (Rapid PCR) Not Detected B.pert (TEM-PCR) Not Detected B.parapertussis DNA PCR Not Detected C. pneumoniae DNA (PCR) Not Detected Coronavirus (PCR) Coronavirus OC43 (PCR) Not Detected Coronavirus HKU1 (PCR) Not Detected Coronavirus 229E (PCR) Not Detected Coronavirus NL63 (PCR) Not Detected HIV 1&2 Ab/P24 Ag 4thGn Human Metapneumovir PCR Not Detected Influenza A (RT-PCR) Not Detected Influenza Type A (PCR) Influenza B (RT-PCR) Not Detected Influenza Type B (PCR) Ur L.pneumophila Ag M. pneumoniae (PCR) Not Detected Parainfluenza 1 (PCR) Not Detected Parainfluenza 2 (PCR) Not Detected Parainfluenza 3 (PCR) Not Detected Parainfluenza 4 (PCR) Not Detected RSV (PCR) Not Detected RSV RNA Qual (PCR) Entero/Rhino (PCR) Not Detected SARS-CoV-2 RNA (RT-PCR) Not Detected SARS-CoV-2 IgG Ab Ur Strep pneumoniae Ag 09/04/20 09/04/20 09/04/20 10:06 12:48 12:48 WBC RBC Hgb Hct MCV MCH MCHC RDW Plt Count MPV Immature Gran % (Auto) Neut % (Auto) Lymph % (Auto) [place] % (Auto) Eos % (Auto) Baso % (Auto) Lymph # (Auto) [place] # (Auto) Eos # (Auto) Baso # (Auto) Abs Immat Gran (auto) Absolute Neuts (auto) Absolute Nucleated RBC Nucleated RBC % (auto) Smear Tech's Comments ESR Sodium 145 Potassium 4.5 Chloride 106 Carbon Dioxide 28 Anion Gap 16 BUN 19 H Creatinine 0.79 Estim Creat Clear Calc 84.7 Estimated GFR > 60 Random Glucose 118 H Lactic Acid Calcium 9.4 Procalcitonin TSH 0.08 L Free T4 1.25 Urine Opiates Screen Ur Barbiturates Screen Ur Phencyclidine Scrn Ur Amphetamines Screen U Benzodiazepines Scrn Urine Cocaine Screen U Marijuana (THC) Screen IgE 787 H Cycl Citrul Peptide IgG <16 COLLINS Screen COLLINS Titer COLLINS Titer 2 COLLINS Titer 3 COLLINS Pattern COLLINS Pattern 2 COLLINS Pattern 3 Respiratory Panel [place] Adenovirus (Rapid PCR) B.pert (TEM-PCR) B.parapertussis DNA PCR C. pneumoniae DNA (PCR) Coronavirus (PCR) Coronavirus OC43 (PCR) Coronavirus HKU1 (PCR) Coronavirus 229E (PCR) Coronavirus NL63 (PCR) HIV 1&2 Ab/P24 Ag 4thGn Human Metapneumovir PCR Influenza A (RT-PCR) Influenza Type A (PCR) Influenza B (RT-PCR) Influenza Type B (PCR) Ur L.pneumophila Ag M. pneumoniae (PCR) Parainfluenza 1 (PCR) Parainfluenza 2 (PCR) Parainfluenza 3 (PCR) Parainfluenza 4 (PCR) RSV (PCR) RSV RNA Qual (PCR) Entero/Rhino (PCR) SARS-CoV-2 RNA (RT-PCR) SARS-CoV-2 IgG Ab Ur Strep pneumoniae Ag 09/04/20 09/04/20 09/04/20 12:49 12:49 12:49 WBC RBC Hgb Hct MCV MCH MCHC RDW Plt Count MPV Immature Gran % (Auto) Neut % (Auto) Lymph % (Auto) [place] % (Auto) Eos % (Auto) Baso % (Auto) Lymph # (Auto) [place] # (Auto) Eos # (Auto) Baso # (Auto) Abs Immat Gran (auto) Absolute Neuts (auto) Absolute Nucleated RBC Nucleated RBC % (auto) Smear Tech's Comments ESR Sodium Potassium Chloride Carbon Dioxide Anion Gap BUN Creatinine Estim Creat Clear Calc Estimated GFR Random Glucose Lactic Acid Calcium Procalcitonin TSH Free T4 Urine Opiates Screen Ur Barbiturates Screen Ur Phencyclidine Scrn Ur Amphetamines Screen U Benzodiazepines Scrn Urine Cocaine Screen U Marijuana (THC) Screen IgE Cycl Citrul Peptide IgG COLLINS Screen NEGATIVE COLLINS Titer TNP COLLINS Titer 2 TNP COLLINS Titer 3 TNP COLLINS Pattern TNP COLLINS Pattern 2 TNP COLLINS Pattern 3 TNP Respiratory Panel [place] Adenovirus (Rapid PCR) B.pert (TEM-PCR) B.parapertussis DNA PCR C. pneumoniae DNA (PCR) Coronavirus (PCR) Coronavirus OC43 (PCR) Coronavirus HKU1 (PCR) Coronavirus 229E (PCR) Coronavirus NL63 (PCR) HIV 1&2 Ab/P24 Ag 4thGn Nonreactive Human Metapneumovir PCR Influenza A (RT-PCR) Influenza Type A (PCR) Influenza B (RT-PCR) Influenza Type B (PCR) Ur L.pneumophila Ag M. pneumoniae (PCR) Parainfluenza 1 (PCR) Parainfluenza 2 (PCR) Parainfluenza 3 (PCR) Parainfluenza 4 (PCR) RSV (PCR) RSV RNA Qual (PCR) Entero/Rhino (PCR) SARS-CoV-2 RNA (RT-PCR) SARS-CoV-2 IgG Ab Negative Ur Strep pneumoniae Ag 09/04/20 09/04/20 09/04/20 20:50 21:26 Unknown WBC RBC Hgb Hct MCV MCH MCHC RDW Plt Count MPV Immature Gran % (Auto) Neut % (Auto) Lymph % (Auto) [place] % (Auto) Eos % (Auto) Baso % (Auto) Lymph # (Auto) [place] # (Auto) Eos # (Auto) Baso # (Auto) Abs Immat Gran (auto) Absolute Neuts (auto) Absolute Nucleated RBC Nucleated RBC % (auto) Smear Tech's Comments ESR 10 Sodium Potassium Chloride Carbon Dioxide Anion Gap BUN Creatinine Estim Creat Clear Calc Estimated GFR Random Glucose Lactic Acid Calcium Procalcitonin TSH Free T4 Urine Opiates Screen Not Detected Ur Barbiturates Screen Not Detected Ur Phencyclidine Scrn Not Detected Ur Amphetamines Screen Not Detected U Benzodiazepines Scrn Not Detected Urine Cocaine Screen Not Detected U Marijuana (THC) Screen Not Detected IgE Cycl Citrul Peptide IgG COLLINS Screen COLLINS Titer COLLINS Titer 2 COLLINS Titer 3 COLLINS Pattern COLLINS Pattern 2 COLLINS Pattern 3 Respiratory Panel [place] Adenovirus (Rapid PCR) B.pert (TEM-PCR) B.parapertussis DNA PCR C. pneumoniae DNA (PCR) Coronavirus (PCR) Coronavirus OC43 (PCR) Coronavirus HKU1 (PCR) Coronavirus 229E (PCR) Coronavirus NL63 (PCR) HIV 1&2 Ab/P24 Ag 4thGn Human Metapneumovir PCR Influenza A (RT-PCR) Influenza Type A (PCR) Influenza B (RT-PCR) Influenza Type B (PCR) Ur L.pneumophila Ag M. pneumoniae (PCR) Parainfluenza 1 (PCR) Parainfluenza 2 (PCR) Parainfluenza 3 (PCR) Parainfluenza 4 (PCR) RSV (PCR) RSV RNA Qual (PCR) Entero/Rhino (PCR) SARS-CoV-2 RNA (RT-PCR) SARS-CoV-2 IgG Ab Negative Ur Strep pneumoniae Ag 09/05/20 09/05/20 09/05/20 05:28 05:28 14:00 WBC 18.7 H RBC 4.63 Hgb 10.5 L Hct 36.5 L MCV 78.8 L MCH 22.7 L MCHC 28.8 L RDW 16.9 H Plt Count 450 H MPV 10.5 Immature Gran % (Auto) 0.4 Neut % (Auto) 77.0 H Lymph % (Auto) 12.2 L [place] % (Auto) 7.6 Eos % (Auto) 2.4 Baso % (Auto) 0.4 Lymph # (Auto) 2.3 [place] # (Auto) 1.4 H Eos # (Auto) 0.5 H Baso # (Auto) 0.1 Abs Immat Gran (auto) 0.07 H Absolute Neuts (auto) 14.4 H Absolute Nucleated RBC 0.000 Nucleated RBC % (auto) 0.0 Smear Tech's Comments ESR Sodium 145 Potassium 4.2 Chloride 106 Carbon Dioxide 30 H Anion Gap 13 BUN 20 H Creatinine 0.76 Estim Creat Clear Calc 88.0 Estimated GFR > 60 Random Glucose 89 Lactic Acid Calcium 8.9 Procalcitonin TSH Free T4 Urine Opiates Screen Ur Barbiturates Screen Ur Phencyclidine Scrn Ur Amphetamines Screen U Benzodiazepines Scrn Urine Cocaine Screen U Marijuana (THC) Screen IgE Cycl Citrul Peptide IgG COLLINS Screen COLLINS Titer COLLINS Titer 2 COLLINS Titer 3 COLLINS Pattern COLLINS Pattern 2 COLLINS Pattern 3 Respiratory Panel [place] Adenovirus (Rapid PCR) B.pert (TEM-PCR) B.parapertussis DNA PCR C. pneumoniae DNA (PCR) Coronavirus (PCR) Coronavirus OC43 (PCR) Coronavirus HKU1 (PCR) Coronavirus 229E (PCR) Coronavirus NL63 (PCR) HIV 1&2 Ab/P24 Ag 4thGn Human Metapneumovir PCR Influenza A (RT-PCR) Influenza Type A (PCR) Influenza B (RT-PCR) Influenza Type B (PCR) Ur L.pneumophila Ag Not Detected M. pneumoniae (PCR) Parainfluenza 1 (PCR) Parainfluenza 2 (PCR) Parainfluenza 3 (PCR) Parainfluenza 4 (PCR) RSV (PCR) RSV RNA Qual (PCR) Entero/Rhino (PCR) SARS-CoV-2 RNA (RT-PCR) SARS-CoV-2 IgG Ab Ur Strep pneumoniae Ag Not Detected 09/06/20 05:51 WBC 10.8 RBC 4.46 Hgb 10.1 L Hct 33.7 L MCV 75.6 L MCH 22.6 L MCHC 30.0 L RDW 16.8 H Plt Count 431 H MPV 10.0 Immature Gran % (Auto) 0.5 H Neut % (Auto) 91.7 H Lymph % (Auto) 6.8 L [place] % (Auto) 1.0 L Eos % (Auto) 0.0 Baso % (Auto) 0.0 Lymph # (Auto) 0.7 L [place] # (Auto) 0.1 Eos # (Auto) 0.0 Baso # (Auto) 0.0 Abs Immat Gran (auto) 0.05 H Absolute Neuts (auto) 9.9 H Absolute Nucleated RBC 0.000 Nucleated RBC % (auto) 0.0 Smear Tech's Comments VERIFIED ESR Sodium Potassium Chloride Carbon Dioxide Anion Gap BUN Creatinine Estim Creat Clear Calc Estimated GFR Random Glucose Lactic Acid Calcium Procalcitonin TSH Free T4 Urine Opiates Screen Ur Barbiturates Screen Ur Phencyclidine Scrn Ur Amphetamines Screen U Benzodiazepines Scrn Urine Cocaine Screen U Marijuana (THC) Screen IgE Cycl Citrul Peptide IgG COLLINS Screen COLLINS Titer COLLINS Titer 2 COLLINS Titer 3 COLLINS Pattern COLLINS Pattern 2 COLLINS Pattern 3 Respiratory Panel [place] Adenovirus (Rapid PCR) B.pert (TEM-PCR) B.parapertussis DNA PCR C. pneumoniae DNA (PCR) Coronavirus (PCR) Coronavirus OC43 (PCR) Coronavirus HKU1 (PCR) Coronavirus 229E (PCR) Coronavirus NL63 (PCR) HIV 1&2 Ab/P24 Ag 4thGn Human Metapneumovir PCR Influenza A (RT-PCR) Influenza Type A (PCR) Influenza B (RT-PCR) Influenza Type B (PCR) Ur L.pneumophila Ag M. pneumoniae (PCR) Parainfluenza 1 (PCR) Parainfluenza 2 (PCR) Parainfluenza 3 (PCR) Parainfluenza 4 (PCR) RSV (PCR) RSV RNA Qual (PCR) Entero/Rhino (PCR) SARS-CoV-2 RNA (RT-PCR) SARS-CoV-2 IgG Ab Ur Strep pneumoniae Ag Discharge Plan Discharge Patient Disposition: Home, Self-Care Referrals: Presley Del Real MD [Physician] - (follow up in 2 weeks) Physician,Unknown [Primary Care Provider] - Discharge Medications: New azithromycin 500 mg tablet 500 mg PO DAILY 4 Days Qty: 4 RF: 0 Breo Ellipta 200-25 mcg/dose Blister With Device 1 ea inhalation RDAILY Qty: 28 RF: 0 albuterol sulfate 90 mcg/actuation aerosol powdr breath activated 1 inh inhalation Q4-6H PRN (Reason: shortness of breath, bonchectasis) Qty: 1 RF: 0 prednisone 20 mg tablet 40 mg PO DAILY Qty: 8 RF: 0 No Action No Known Home Meds RF: 0 Discharge Orders: Discharge Order (Routine); Ordered 09/08/20 Ordered By: Jennifer Ash Diet: advance to usual diet and diabetic diet Activity on Discharge: As tolerated Stand Alone Forms: Patient Portal Discharge page Visit Report Forms: Patient Portal Discharge page Care Plan Goals: Patient came to hospital because of shortness of breath and cough-found to have a probable atypical pneumonia: Patient was subsequently started on IV antibiotics and also given steroids : Because initially suspicion was COVID, but patient is COVID test and COVID antibodies are negative: Seen by infectious disease and pulmonary: Recommended to continue azithromycin for atypical coverage and also Pulmonary recommended to add Breo and nebs for bronchiectasis, patient will complete prednisone at home. Please repeat chest imaging in 3-4 weeks with PCP to see resolution of pneumonia. Further management outpatient as per PCP. Patient was initially also generalized weak but improving significantly seen by PT recommended to go home with no services. Health Concerns: As above. Plan of Treatment: As above.. Patient Instructions: How to Use a Metered-Dose Inhaler and a Spacer (DC) Discharge Date/Time: 09/08/20 17:28
== END 2020-09-08 17:28 | disposition home or self-care (01) | DRG 140 ==
LOC: HO.ED 09-03 01:20 → HO.EDOVER 09-03 03:56 → HO.IMC 09-03 09:07
PROVIDERS: Hospitalist; Internal Medicine; Physician Assistant Medical; Admitting Provider Internal Medicine; Emergency Provider Emergency Medicine; Visit Provider Internal Medicine
DX: J47.0 Bronchiectasis with acute lower respiratory infection (principal); J96.01 Acute respiratory failure with hypoxia; J18.9 Pneumonia, unspecified organism; R00.0 Tachycardia, unspecified; D64.9 Anemia, unspecified; Z20.822 Contact with and (suspected) exposure to COVID-19; Z79.899 Other long term (current) drug therapy
CPT/HCPCS: 0241U; 11104; 36415; 71045; 71275; 80048; 80307; 82785; 83605; 84145; 84439; 84443; 85025; 85652; 86038; 86039; 86200; 86769; 87040; 87070; 87205; 87389; 87449; 87633; 87899; 93005; 94640; 94644; 94664; 97161; 99284; 99285; J0696; J1100; J1650; J2930; Q9967

== ENCOUNTER → 2020-10-15 09:49 | Outpatient (BNVA) | payer MEDICAID, SELFPAY | PROVIDERS: PCP Internal Medicine; Visit Provider Internal Medicine Pulmonary Disease | DX: J18.9 Pneumonia, unspecified organism (principal); Z91.09 Other allergy status, other than to drugs and biological substances; F17.200 Nicotine dependence, unspecified, uncomplicated | CPT/HCPCS: 99202 ==

== ENCOUNTER 2020-11-08 09:37 | Outpatient (REF) | payer MEDICAID, SELFPAY ==
--- NOTE | 2020-11-08 14:06 | PFT_ITS ---
FLOWS: FEV1 of 76% of predicted at 2.42 L. FVC 88% of predicted at 3.38 L. FEV1 to FVC ratio of 0.71. Positive bronchodilator response. LUNG VOLUMES: Total lung capacity 99% of predicted at 5.48 L. Residual volume 120% of predicted at 2.31 L. Slow vital capacity 88% of predicted at 3.17 L. Expiratory reserve volume 105% of predicted at 1.25 L. Diffusion capacity is mildly decreased. IMPRESSION: Moderate obstructive ventilatory defect with bronchodilator response. Increased residual volume suggests air trapping. Decreased diffusion capacity suggests emphysema. Colton Esquivel MD AP/MODL / [id number]
== END 2020-11-08 09:38 | disposition home or self-care (01) ==
LOC: HO.RESP 09:37
PROVIDERS: PCP Internal Medicine; Visit Provider Internal Medicine Pulmonary Disease
DX: J96.01 Acute respiratory failure with hypoxia (principal)
CPT/HCPCS: 94060; 94727; 94729

== ENCOUNTER → 2020-11-16 09:46 | Outpatient (BNVA) | payer MEDICAID, SELFPAY | PROVIDERS: PCP Internal Medicine; Visit Provider Internal Medicine Pulmonary Disease | DX: J45.40 Moderate persistent asthma, uncomplicated (principal); Z91.09 Other allergy status, other than to drugs and biological substances | CPT/HCPCS: 99212 ==

== ENCOUNTER → 2021-03-09 09:11 | Outpatient (BNVA) | payer MEDICAID, SELFPAY | PROVIDERS: PCP Internal Medicine; Visit Provider Internal Medicine Pulmonary Disease | DX: J45.40 Moderate persistent asthma, uncomplicated (principal); Z91.09 Other allergy status, other than to drugs and biological substances | CPT/HCPCS: 99212 ==

== ENCOUNTER → 2021-04-14 09:34 | Outpatient (BNVA) | payer MEDICAID, SELFPAY | PROVIDERS: PCP Internal Medicine; Visit Provider Internal Medicine Pulmonary Disease | DX: J45.40 Moderate persistent asthma, uncomplicated (principal); Z91.09 Other allergy status, other than to drugs and biological substances | CPT/HCPCS: 99212 ==

== ENCOUNTER → 2021-07-27 09:12 | Outpatient (BNVA) | payer MEDICAID, SELFPAY | PROVIDERS: PCP Internal Medicine; Visit Provider Internal Medicine Pulmonary Disease | DX: J45.40 Moderate persistent asthma, uncomplicated (principal); Z91.09 Other allergy status, other than to drugs and biological substances | CPT/HCPCS: 99212 ==

== ENCOUNTER → 2022-02-24 08:46 | Outpatient (BNVA) | payer MEDICAID, SELFPAY | PROVIDERS: PCP Internal Medicine; Visit Provider Internal Medicine Pulmonary Disease | DX: J45.40 Moderate persistent asthma, uncomplicated (principal); Z91.09 Other allergy status, other than to drugs and biological substances | CPT/HCPCS: 99212 ==

== ENCOUNTER → 2022-08-16 08:32 | Outpatient (BNVA) | payer MEDICAID, SELFPAY | PROVIDERS: PCP Internal Medicine; Visit Provider Internal Medicine Pulmonary Disease | DX: J45.40 Moderate persistent asthma, uncomplicated (principal); Z91.09 Other allergy status, other than to drugs and biological substances; Z79.899 Other long term (current) drug therapy | CPT/HCPCS: 99212 ==

== ENCOUNTER 2023-03-27 09:54 | Outpatient (AMB) | payer MEDICAID, SELFPAY ==
--- NOTE | 2023-03-27 10:03 | A.OFFVIS_ITS ---
Intake Vital Signs 03/27/23 10:04 Weight 137 lb 12.623 oz BP 126/80 Blood Pressure Location Lt brachial Position Sitting Pulse 97 Pulse Source Pulse Oximeter Pulse Oximetry (%) 99 Oxygen Delivery Method Room Air Intake Visit Reasons: Asthma Allergies apple Allergy (Verified 03/27/23 10:07) Hives Medication List - Last Reconciled 03/27/23 by Divya Holbrook LPN albuterol sulfate 90 mcg/actuation 2 puffs inhalation Q4-6H PRN fluticasone propion-salmeterol 500-50 mcg/dose (Advair Diskus) 1 ea PO BID HPI Asthma HPI Details 52-year-old lady, nonsmoker, followed for underlying severe persistent allergic asthma and environmental allergies.? She continues to use Advair 500 and albuterol MDI with good control of her underlying symptoms.? She denies any recent exacerbations.? Her allergies are also well controlled at this time.? [facility] Social History Household Members: Other Housing: Apartment Do you presently have visiting nurse or other home services: No Alcohol intake: never Second Hand Smoke Exposure: No service: No Current occupational status: unemployed Review of Systems Const Denies daytime sleepiness, Denies excessive sweating, Denies fatigue, Denies fever(s), Denies lethargy, Denies malaise, Denies night sweats, Denies snoring and Denies weight loss Eyes Denies blurry vision and Denies itchy eyes ENT Denies nasal congestion, Denies post nasal drip, Denies sinus pain, Denies sinus pressure and Denies other ( Thrush) Card Denies chest pain, Denies pedal edema, Denies dyspnea, Denies orthopnea and Denies paroxysmal nocturnal dyspnea Resp Denies cough, Denies hemoptysis, Denies excessive phlegm production, Denies dyspnea, Denies snoring and Denies wheezing GI Denies abdominal pain and Denies heartburn Musc Denies myalgias, Denies arthralgias and Denies joint swelling Skin/Breast Denies rash Neuro Denies memory loss and Denies seizure-like activity Psych Denies abnormal sleep pattern, Denies anxiety and Denies memory loss Endo Denies excessive sweating, Denies fatigue and Denies heat intolerance Janak/Lymph Denies easy bruising Aller/Immun Denies itchy eyes, Denies seasonal rhinorrhea and Denies wheezing Physical Exam Vital Signs: Last Vital Signs Pulse 97 03/27/23 10:04 BP 126/80 03/27/23 10:04 Pulse Ox 99 03/27/23 10:04 Oxygen Delivery Method Room Air 03/27/23 10:04 Const General: no acute distress and alert Nutritional Appearance: not obese Orientation/consciousness: Other orientation findings ( oriented) HEENT Head: Yes atraumatic Eyes General: appearance normal, both eyes and all related structures Sclerae: sclerae normal EOM: EOMs intact bilaterally Neck Neck: Yes supple Lymphatic: no lymphadenopathy noted Resp Effort & Inspection: normal respiratory effort and no use of accessory muscles Auscultation: clear to auscultation bilaterally Cardio Rate: regular rate Rhythm: regular rhythm Heart sounds: no gallops, no murmurs and no rubs Skin General skin exam: other ( warm) Extrem General: No clubbing, No cyanosis and No edema Assessment & Plan Assessment & Plan (1) Moderate persistent asthma: Code(s): J45.40 - Moderate persistent asthma, uncomplicated Plan: Well controlled on current regimen of Advair 500 and albuterol MDI. Continue current regimen. Coding Level of Care Code Est Pt Level 3 (76515) Diagnoses Moderate persistent asthma J45.40
[2023-03-27 10:04] VITALS: BP 126/80; PULSE 97; O2SAT 99
== END 2023-03-27 10:24 | disposition home or self-care (01) ==
PROVIDERS: PCP Internal Medicine; Visit Provider Internal Medicine Pulmonary Disease
DX: J45.40 Moderate persistent asthma, uncomplicated (principal)
CPT/HCPCS: 99213

== ENCOUNTER → 2023-03-27 09:54 | Outpatient (BNVA) | payer MEDICAID, SELFPAY | PROVIDERS: PCP Internal Medicine; Visit Provider Internal Medicine Pulmonary Disease | DX: J45.40 Moderate persistent asthma, uncomplicated (principal); Z79.899 Other long term (current) drug therapy | CPT/HCPCS: 99212 ==

== ENCOUNTER 2023-04-06 15:30 | Outpatient (REF) | payer MEDICAID, SELFPAY ==
[2023-04-11 21:28] LABS: HPV mRNA E6/E7 rflx Not Detected (Not Detected)
== END 2023-04-06 15:31 | disposition home or self-care (01) ==
LOC: HO.HHCLNP 15:30
PROVIDERS: Visit Provider Internal Medicine
DX: Z01.419 Encounter for gynecological examination (general) (routine) without abnormal findings (principal)
CPT/HCPCS: 87624; 88142

== ENCOUNTER 2023-05-01 08:40 | Outpatient (REF) | payer MEDICAID, SELFPAY ==
[2023-05-01 11:42] LABS: MANUAL DIFF FLAG NO
[2023-05-01 11:45] LABS: Basophils Percent Auto 0.4 % (0-2); Eosinophils Absolute Auto 0.3 X10*3/uL (0.0-0.4); Eosinophils Percent Auto 2.9 % (0-4); Hematocrit 37.6 % (37.0-47.0); Imm Gran Abs Auto 0.04 X10*3/uL (0.00-0.03); Imm Gran Pct Auto 0.4 % (0.0-0.4); Lymphocytes Absolute Auto 1.8 X10*3/uL (1.2-4.9); Lymphocytes Percent Auto 19.4 % (20-40); Mean Corpuscular HGB Conc 31.9 g/dl (31.0-35.0); Mean Corpuscular Hemoglobin 27.3 pg (27.0-33.0); Mean Corpuscular Volume 85.5 fL (80.0-98.0); Mean Platelet Volume 10.4 fL (9.4-12.3); Monocytes Absolute Auto 0.8 X10*3/uL (0.1-1.2); Monocytes Percent Auto 8.2 % (2-11); Neutrophils Absolute Auto 6.4 x10*3/uL (2.0-8.3); Neutrophils Percent Auto 68.7 % (45-73); Platelet Count 393 X10*3/uL (160-400); Red Cell Distribution Width 14.9 % (11.0-16.0); White Blood Count 9.4 X10*3/uL (4.8-10.8)
[2023-05-01 12:09] LABS: Estimated Average Glucose 97 mg/dL
[2023-05-01 12:27] LABS: Alanine Aminotransferase 11 U/L (0-31); Alkaline Phosphatase 50 U/L (39-117); Anion Gap 12 (12-20); Aspartate Amino Transferase 13 U/L (5-31); Bilirubin Direct 0.1 mg/dL (0.0-0.5); Bilirubin Total 0.3 mg/dL (0.0-1.0); Blood Urea Nitrogen 10 mg/dL (9-16); Calcium 9.3 mg/dL (8.4-10.2); Carbon Dioxide 26 mmol/L (22-29); Chloride 104 mmol/L (96-108); Cholesterol 235 mg/dL (<200); Estimated Glomerular Filt Rate > 60; Glucose Random 96 mg/dL (60-115); HDL Cholesterol 68 mg/dL (>40); LDL Cholesterol Calculated 154 mg/dL (<100); Potassium 3.8 mmol/L (3.3-5.1); Sodium 138 mmol/L (135-145); Total Protein 6.8 g/dL (6.5-8.0); Triglycerides 66 mg/dL (<150)
[2023-05-02 08:37] LABS: HIV AB/AG Nonreactive (Nonreactive); HIV Num 1 0.04 S/CO (0.00-0.99); ~HepC Num1 0.06 S/CO (0.00-0.79); ~Hepatitis C Antibody Nonreactive (Nonreactive)
== END 2023-05-01 08:41 | disposition home or self-care (01) ==
LOC: HO.HHCL 08:40
PROVIDERS: Visit Provider Internal Medicine
DX: R00.0 Tachycardia, unspecified (principal)
CPT/HCPCS: 36415; 80048; 80061; 80076; 83036; 84443; 85025; 86803; 87389

== ENCOUNTER 2023-11-08 09:56 | Outpatient (AMB) | payer MEDICAID, SELFPAY ==
--- NOTE | 2023-11-08 10:22 | MHC.OFFVIS ---
Intake Vital Signs 11/08/23 10:24 Height 5 ft 7 in Weight 135 lb 9.349 oz BMI 21.2 BP 128/76 Blood Pressure Location Rt brachial Position Sitting Pulse 119 H Pulse Source Doppler Pulse Oximetry (%) 98 Intake Visit Reasons: Asthma Pressroom Foreman Required: Yes Pressroom Foreman Name: Jocelyn Floyd Robles Allergies apple Allergy (Verified 11/08/23 10:27) Hives HPI Asthma HPI Details 53-year-old lady, nonsmoker, followed for underlying severe persistent allergic asthma and environmental allergies.? She continues to use Advair 500 and albuterol MDI with good control of her underlying symptoms.? She denies any recent exacerbations.? Her allergies are also well controlled at this time.? [facility] Social History Household Members: Other Housing: Apartment Do you presently have visiting nurse or other home services: No Alcohol intake: never Second Hand Smoke Exposure: No service: No Current occupational status: unemployed Review of Systems Const Denies daytime sleepiness, Denies excessive sweating, Denies fatigue, Denies fever(s), Denies lethargy, Denies malaise, Denies night sweats, Denies snoring and Denies weight loss Eyes Denies blurry vision and Denies itchy eyes ENT Denies nasal congestion, Denies post nasal drip, Denies sinus pain, Denies sinus pressure and Denies other ( Thrush) Card Denies chest pain, Denies pedal edema, Denies dyspnea, Denies orthopnea and Denies paroxysmal nocturnal dyspnea Resp Denies cough, Denies hemoptysis, Denies excessive phlegm production, Denies dyspnea, Denies snoring and Denies wheezing GI Denies abdominal pain and Denies heartburn Musc Denies myalgias, Denies arthralgias and Denies joint swelling Skin/Breast Denies rash Neuro Denies memory loss and Denies seizure-like activity Psych Denies abnormal sleep pattern, Denies anxiety and Denies memory loss Endo Denies excessive sweating, Denies fatigue and Denies heat intolerance Janak/Lymph Denies easy bruising Aller/Immun Denies itchy eyes, Denies seasonal rhinorrhea and Denies wheezing Physical Exam Vital Signs: Last Vital Signs Pulse 119 H 11/08/23 10:24 BP 128/76 11/08/23 10:24 Pulse Ox 98 11/08/23 10:24 BMI result Body Mass Index 21.2 Const General: no acute distress and alert Nutritional Appearance: not obese Orientation/consciousness: Other orientation findings ( oriented) HEENT Head: Yes atraumatic Eyes General: appearance normal, both eyes and all related structures Sclerae: sclerae normal EOM: EOMs intact bilaterally Neck Neck: Yes supple Lymphatic: no lymphadenopathy noted Resp Effort & Inspection: normal respiratory effort and no use of accessory muscles Auscultation: clear to auscultation bilaterally Cardio Rate: regular rate Rhythm: regular rhythm Heart sounds: no gallops, no murmurs and no rubs Skin General skin exam: other ( warm) Extrem General: No clubbing, No cyanosis and No edema Assessment & Plan Assessment & Plan (1) Moderate persistent asthma: Code(s): J45.40 - Moderate persistent asthma, uncomplicated Plan: Well controlled on current regimen of Advair 500 and albuterol MDI. Continue current regimen. Coding Level of Care Code Est Pt Level 3 (59027) Diagnoses Moderate persistent asthma J45.40
[2023-11-08 10:24] VITALS: BP 128/76; PULSE 119; O2SAT 98; BMI 21.2
== END 2023-11-08 10:31 | disposition home or self-care (01) ==
PROVIDERS: PCP Internal Medicine; Referring Provider Internal Medicine; Visit Provider Internal Medicine Pulmonary Disease
DX: J45.40 Moderate persistent asthma, uncomplicated (principal)
CPT/HCPCS: 99213

== ENCOUNTER → 2023-11-08 09:56 | Outpatient (BNVA) | payer MEDICAID, SELFPAY | PROVIDERS: PCP Internal Medicine; Visit Provider Internal Medicine Pulmonary Disease | DX: J45.40 Moderate persistent asthma, uncomplicated (principal) | CPT/HCPCS: 99212 ==

== ENCOUNTER 2024-04-29 09:05 | Outpatient (AMB) | payer MEDICAID, SELFPAY ==
[2024-04-29 09:11] VITALS: BP 122/80; PULSE 100; O2SAT 98; BMI 23.0
--- NOTE | 2024-04-29 09:11 | MHC.OFFVIS ---
Vital Signs 04/29/24 09:11 Height 5 ft 7 in Weight 147 lb BMI 23.0 BP 122/80 Blood Pressure Location Rt brachial Position Sitting Pulse 100 Pulse Source Doppler Pulse Oximetry (%) 98 Oxygen Delivery Method Room Air Intake Visit Reasons: asthma Sandfill Operator Surface Required: Yes Sandfill Operator Surface Name: Jocelyn Robles Allergies apple Allergy (Verified 11/08/23 10:27) Hives HPI HPI asthma: Details: 53-year-old lady, nonsmoker, followed for underlying severe persistent allergic asthma and environmental allergies.? She continues to use Advair 500 and albuterol MDI with good control of her underlying symptoms.? She denies any recent exacerbations.? Her allergies are also well controlled at this time. No significant changes since last visit.? [facility] Social History Household Members: Other Housing: Apartment Do you presently have visiting nurse or other home services: No Alcohol intake: never Second Hand Smoke Exposure: No service: No Current occupational status: unemployed Review of Systems Const Denies daytime sleepiness, Denies excessive sweating, Denies fatigue, Denies fever(s), Denies lethargy, Denies malaise, Denies night sweats, Denies snoring and Denies weight loss Eyes Denies blurry vision and Denies itchy eyes ENT Denies nasal congestion, Denies post nasal drip, Denies sinus pain, Denies sinus pressure and Denies other ( Thrush) Card Denies chest pain, Denies pedal edema, Denies dyspnea, Denies orthopnea and Denies paroxysmal nocturnal dyspnea Resp Denies cough, Denies hemoptysis, Denies excessive phlegm production, Denies dyspnea, Denies snoring and Denies wheezing GI Denies abdominal pain and Denies heartburn Musc Denies myalgias, Denies arthralgias and Denies joint swelling Skin/Breast Denies rash Neuro Denies memory loss and Denies seizure-like activity Psych Denies abnormal sleep pattern, Denies anxiety and Denies memory loss Endo Denies excessive sweating, Denies fatigue and Denies heat intolerance Janak/Lymph Denies easy bruising Aller/Immun Denies itchy eyes, Denies seasonal rhinorrhea and Denies wheezing Physical Exam Vital Signs: Last Vital Signs Pulse 100 09/17/24 09:11 BP 122/80 04/29/24 09:11 Pulse Ox 98 04/29/24 09:11 Oxygen Delivery Method Room Air 04/29/24 09:11 BMI result Body Mass Index 23.0 Const General: no acute distress and alert Nutritional Appearance: not obese Orientation/consciousness: Other orientation findings ( oriented) HEENT Head: Yes atraumatic Eyes General: appearance normal, both eyes and all related structures Sclerae: sclerae normal EOM: EOMs intact bilaterally Neck Neck: Yes supple Lymphatic: no lymphadenopathy noted Resp Effort & Inspection: normal respiratory effort and no use of accessory muscles Auscultation: clear to auscultation bilaterally Cardio Rate: regular rate Rhythm: regular rhythm Heart sounds: no gallops, no murmurs and no rubs Skin General skin exam: other ( warm) Extrem General: No clubbing, No cyanosis and No edema Assessment & Plan Assessment & Plan (1) Moderate persistent asthma: Code(s): J45.40 - Moderate persistent asthma, uncomplicated Category: Medical Plan: Well controlled on current regimen of Advair and albuterol MDI. Continue current regimen. Coding Level of Care Code Est Pt Level 4 (17573) Diagnoses Moderate persistent asthma J45.40
== END 2024-04-29 09:27 | disposition home or self-care (01) ==
PROVIDERS: PCP Internal Medicine; Visit Provider Internal Medicine Pulmonary Disease
DX: J45.40 Moderate persistent asthma, uncomplicated (principal)
CPT/HCPCS: 99214

== ENCOUNTER → 2024-04-29 09:05 | Outpatient (BNVA) | payer MEDICAID, SELFPAY | PROVIDERS: PCP Internal Medicine; Visit Provider Internal Medicine Pulmonary Disease | DX: J45.40 Moderate persistent asthma, uncomplicated (principal); Z79.899 Other long term (current) drug therapy | CPT/HCPCS: 99212 ==

== ENCOUNTER 2024-06-09 09:41 | Outpatient (REF) | payer MEDICAID, SELFPAY ==
--- NOTE | ~2024-06-09 | XR_ITS ---
EXAMINATION: XR CHEST CLINICAL INFORMATION: Three-month history of worsening cough. COMPARISON: CT angiogram PE chest 09/03/2020, x-ray chest 09/02/2020. TECHNIQUE: 3 views of the chest were obtained. FINDINGS: The lungs are well inflated. There is no gross pneumothorax. Thoracolumbar scoliosis with multilevel degenerative changes. Heart size is normal. No significant pleural effusion. Previously noted subtle coarsening of the interstitial markings redemonstrated. No new focal consolidation. XR/XR chest 2V IMPRESSION: Previously noted subtle coarsening of the interstitial markings redemonstrated. No new focal consolidation. This study was presented today, June 09, 2024, for interpretation. Stat results provided at this time as requested by referring provider. Electronically signed by: Alicia Encarnacion MD 06/09/2024 12:21 PM EDT
== END 2024-06-09 09:42 | disposition home or self-care (01) ==
LOC: HO.HHCX 09:41
PROVIDERS: Visit Provider Emergency Medicine
DX: R05.2 Subacute cough (principal)
CPT/HCPCS: 36415; 71046; 86481; 86615

== ENCOUNTER 2024-06-09 10:08 | Outpatient (REF) | payer MEDICAID, SELFPAY ==
[2024-06-12 06:07] LABS: TS Negative Control Passed; TS Panel A 0; TS Panel B 0; TS Positive Control Passed; TSpotTB Negative (Negative)
[2024-06-15 19:08] LABS: Pertussis Testing 2 IU/mL
== END 2024-06-09 10:09 | disposition home or self-care (01) ==
LOC: HO.HHCL 10:08
PROVIDERS: Visit Provider Emergency Medicine
DX: R05.2 Subacute cough (principal)
CPT/HCPCS: 36415; 86481; 86615

== ENCOUNTER 2024-07-25 17:24 | Outpatient (REF) | payer MEDICAID, SELFPAY ==
[2024-07-26 09:46] LABS: Adenovirus PCR Not Detected (Not Detect.); Bordetella parapertussis PCR Not Detected (Not Detect.); Bordetella pertussis PCR Not Detected (Not Detect.); Chlamydia pneumoniae PCR Not Detected (Not Detect.); Coronavirus 229E PCR Not Detected (Not Detect.); Coronavirus HKU1 PCR Not Detected (Not Detect.); Coronavirus NL63 PCR Not Detected (Not Detect.); Coronavirus OC43 PCR Not Detected (Not Detect.); Human metapneumovirus PCR Not Detected (Not Detect.); Influenza A PCR Not Detected (Not Detect.); Influenza B PCR Not Detected (Not Detect.); Mycoplasma pneumoniae PCR Not Detected (Not Detect.); Parainfluenza 1 PCR Not Detected (Not Detect.); Parainfluenza 2 PCR Not Detected (Not Detect.); Parainfluenza 3 PCR Not Detected (Not Detect.); Parainfluenza 4 PCR Not Detected (Not Detect.); RSV PCR Not Detected (Not Detect.); Rhino/Enterovirus PCR Not Detected (Not Detect.)
[2024-07-26 10:16] LABS: SARS-CoV-2 PCR Not Detected (Not Detect.)
== END 2024-07-25 17:25 | disposition home or self-care (01) ==
LOC: HO.HHCLNP 17:24
PROVIDERS: Visit Provider Emergency Medicine
DX: J45.41 Moderate persistent asthma with (acute) exacerbation (principal)
CPT/HCPCS: 87633

== ENCOUNTER 2024-07-27 | Outpatient (REF) | payer MEDICAID, SELFPAY | END 2024-07-27 00:01 | disposition home or self-care (01) | LOC: HO.LNP | PROVIDERS: Visit Provider Emergency Medicine | DX: J45.41 Moderate persistent asthma with (acute) exacerbation (principal) | CPT/HCPCS: 87338 ==

== ENCOUNTER 2024-10-01 10:29 | Outpatient (REF) | payer MEDICAID, SELFPAY ==
--- NOTE | ~2024-10-01 | XR_ITS ---
EXAMINATION: XR CHEST CLINICAL INFORMATION: J06.9 - Acute upper respiratory infection, unspecified COMPARISON: 06/09/2024. TECHNIQUE: 2 views of the chest were obtained. FINDINGS: The cardiac, hilar, and mediastinal contours are normal. Lungs demonstrate patchy opacity in the right middle lobe distribution. Left lung is clear. There is no pneumothorax or pleural effusion. There is no focal osseous or soft tissue abnormality. There is a levoconvex thoracolumbar scoliosis with mild degenerative spinal changes. XR/XR chest 2V IMPRESSION: Right middle lobe pneumonia. Electronically signed by: Claudy Garcia MD 10/01/2024 11:49 AM [facility]
--- OUTSIDE RECORDS SUMMARY | 2024-10-01 11:57 | XMS_ITS | Clinical Summary ---
Author Organization [employer] Address [address] [facility] 7t [place] [address] Care Team Providers Care Engineering Writer Name Role Phone Evlie Cleaning MD Primary Care Provide r Allergies [...] Date Type Department Care Team Description 10/01/2024 Orders Only [facility] External Provider, [facility] 10/01/2024 Refill [facility] [address] [place] [phone] Brennan Mcgovern MD 09/16/2024 Refill [facility] [address] [place] [phone] Elvie Cleaning MD Seasonal allergies 09/16/2024 Refill [facility] [address] [place] [address] [phone] Brennan Mcgovern MD 07/30/2024 Telephone [facility] [address] [place] [address] [phone] Brennan Mcgovern MD 07/25/2024 8:40 AM EST Office Visit [facility] [address] [place] [address] [phone] Brennan Mcgovern MD Moderate persistent asthma with acute exacerbation (Primary Dx); Gastroesophageal reflux disease, unspecified whether esophagitis present; Viral URI 07/25/2024 Telephone [facility] [address] [place] [address] [phone] Aleyda Silva RN Acl[place]on Neb dispensed 07/20/2024 Refill [facility] [address] [place] [address] [phone] Elvie Cleaning MD Seasonal allergies from Last [...] Procedure Name Priority Date/Time Associated Diagnosis Comments XR CHEST 2 VIEWS Routine 10/01/2024 11:1 8 AM EST HELICOBACTER PYLORI AG, EIA, STOOL Routine 07/27/2024 [...] Recently Relevant to Health Maintenance Results * XR Chest 2 Views (10/01/2024 11:18 AM EST) Anatomical Region Laterality Modality Chest Radiographic Ashley ging 10/01/2024 11:1 8 AM EST Narrative 10/01/2024 11:52 AM EST ? [facility] ?[address] ?[place] [address] ?XRay Report ? Signed ? Patient: Stephanie Mcrae ?MR#: [id number] ?? [id number] ? : 1970 ?Acct:[id number] ? Age/Sex: 54 / F ?ADM Date: 10/01/24 ? Loc: HO.LAB ? Attending Dr: Colton Esquivel MD ? Ordering Physician: Colton Esquivel MD ?? Date of Service: 10/01/24 ?? Procedure(s): XR chest 2V ?? Accession Number(s): [id number] ? cc: Elvie Cleaning MD; Colton Esquivel MD ? EXAMINATION: ?? XR CHEST ? CLINICAL INFORMATION: ?? J06.9 - Acute upper respiratory infection, unspecified ? COMPARISON: ?? 06/09/2024. ? TECHNIQUE: ?? 2 views of the chest were obtained. ? FINDINGS: ?? The cardiac, hilar, and mediastinal contours are normal. ? Lungs demonstrate patchy opacity in the right middle lobe distribution. ?? Left lung is clear. ?? There is no pneumothorax or pleural effusion. ? There is no focal osseous or soft tissue abnormality. There is a ?? levoconvex thoracolumbar scoliosis with mild degenerative spinal ?? changes. ? XR/XR chest 2V ?? IMPRESSION: ?? Right middle lobe pneumonia. ? Electronically signed by: ??Claudy Garcia MD ??10/01/2024 11:49 AM EST RP ? Dictated By: ?Claudy Garcia MD ? Signed By: ?<Electronically signed by Claudy Garcia MD in OV> ?10/01/24 1149 ? DD/ 1118 ? TD/TT: 10/01/24 1129 ? Talent Development Consultant: ? Procedure Note Donoscarter, Image - 10/01/2024 [place] [address] XRay Report Signed Patient: Stephanie McraeMR#: [id number] : 1970Acct:[id number] Age/Sex: 54 / FADM Date: 10/01/24 Loc: HO.LAB Attending Dr: Colton Esquivel MD Ordering Physician: Colton Esquivel MD Date of Service: 10/01/24 Procedure(s): XR chest 2V Accession Number(s): [id number] cc: Elvie Cleaning MD; Colton Esquivel MD EXAMINATION: XR CHEST CLINICAL INFORMATION: J06.9 - Acute upper respiratory infection, unspecified COMPARISON: 06/09/2024. TECHNIQUE: 2 views of the chest were obtained. FINDINGS: The cardiac, hilar, and mediastinal contours are normal. Lungs demonstrate patchy opacity in the right middle lobe distribution. Left lung is clear. There is no pneumothorax or pleural effusion. There is no focal osseous or soft tissue abnormality. There is a levoconvex thoracolumbar scoliosis with mild degenerative spinal changes. XR/XR chest 2V IMPRESSION: Right middle lobe pneumonia. Electronically signed by: Claudy Garcia MD 10/01/2024 11:49 AM EST Dictated By: Claudy Garcia MD Signed By: <Electronically signed by Claudy Garcia MD in OV> 10/01/24 1149 DD/ 1118 TD/TT: 10/01/24 1129 Talent Development Consultant: [facility] External Provider IMG XR PROCEDURES Final Result * Helicobacter pylori??Antigen, EIA, Stool (07/27/2024 12:30 PM EST) H pylori Ag Stool SEE NOTE [facility] Comment:HELICOBACTER PYLORI AG, EIA, STOOL Micro Number: [id number] Test Status: Final Specimen Source: Stool Specimen Quality: Adequate H.pylori Ag: Not Detected Antimicrobials, proton pump inhibitors, and bismuth preparations inhibit H. pylori and ingestion up to two weeks prior to testing may cause false negative results. If clinically indicated the test should be repeated on a new specimen obtained two weeks after discontinuing treatment. Reference Range: Not DetectedTHIS TEST WAS PERFORMED AT:[employer] [place] [phone] SWARTZ MD Stool Rectal contents / Unknown 07/27/2024 12:30 PM EST 07/28/2024 12:28 PM EST Brennan Mcgovern MD LAB BODY FLUIDS AND STOOLS ORDER CARLIE Final Result [facility] [address] [place] [phone] [phone] * Respiratory Viral Panel PCR (07/25/2024 9:18 AM EST) Adenovirus PCR Not Detected Not Detect. [facility] Bordetella pertussis PCR Not Detected Not Detect. [facility] Comment:Interpret results wi th caution. If B. pertussis isspecifically suspected, additional testing using analternate method is recommended. Bordetella parapertussis PCR Not Detected Not Detect. [facility] Chlamydia pneumoniae PCR Not Detected Not Detect. [facility] Coronavirus 229E PCR Not Detected Not Detect. [facility] Coronavirus HKU1 PCR Not Detected Not Detect. [facility] Coronavirus NL63 PCR Not Detected Not Detect. [facility] Coronavirus OC43 PCR Not Detected Not Detect. [facility] SARS-CoV-2 PCR Not Detected Not Detect. [facility] Comment:SARS-CoV-2 not detec allegra by real-time RT-PCR.Note: If clinical suspicion for Sars-CoV-2 is high, continueto maintain precautions and consider repeat testing.Test results should be interpreted in the context ofclinical findings and other laboratory data.Rare polymorphisms exist that could lead to false-negativeor false-positive results. If results do not match theclinical findings, additional testing should be considered.Results reported to [facility].This test has been authorized by the FDA under the EmergencyUse Authorization (EUA) for use by authorized laboratories. Influenza A PCR Not Detected Not Detect. [facility] Influenza B PCR Not Detected Not Detect. [facility] Human metapneumovirus PCR Not Detected Not Detect. [facility] Rhino/Enterovirus PCR Not Detected Not Detect. [facility] Mycoplasma pneumoniae PCR Not Detected Not Detect. [facility] Parainfluenza 1 PCR Not Detected Not Detect. [facility] Parainfluenza 2 PCR Not Detected Not Detect. [facility] Parainfluenza 3 PCR Not Detected Not Detect. [facility] Parainfluenza 4 PCR Not Detected Not Detect. [facility] RSV PCR Not Detected Not Detect. [facility] Resp Panel NA Note See Note H [facility] Comment:All results must be correlated with [...] assay is performed by Multiplexed PCR, utilizing [employer] Film Array. Swab 07/25/2024 9:18 AM EST 07/25/2024 5:25 PM EST us Brennan Mcgovern MD LAB BLOOD ORDERABLES Final Resul t Performing Organization Address [facility] Co de Phone Number [facility] [address] [place] [phone] * Influenza B (ID NOW Rapid Molecular) (07/25/2024 8:54 AM EST) Influenza B Negative Negative, Indeterminate [facility] Swab 07/25/2024 8:54 AM EST us Brennan Mcgovern MD POINT OF CARE TEST ENTER/EDIT OR DERABLES Final Result Performing Organization Address [facility] de Phone Number [facility] [address] [place] [phone] * Influenza A (ID NOW Rapid Molecular) (07/25/2024 8:54 AM EST) Influenza A Negative Negative, Indeterminate [facility] Swab 07/25/2024 8:54 AM EST us Brennan Mcgovern MD POINT OF CARE TEST ENTER/EDIT OR DERABLES Final Result Performing Organization Address [facility] de Phone Number [facility] [address] [place] [address] [phone] * POCT Rapid COVID Ag (07/25/2024 8:54 AM EST) Rapid COVID Ag Negative [facility] Swab 07/25/2024 8:54 AM EST us Brennan Mcgovern MD POINT OF CARE TEST ENTER/EDIT OR DERABLES Final Result Performing Organization Address [facility] de Phone Number [facility] [address] [place] [phone] * HIV Ab/Ag (BARRON DP) (05/01/2023 8:45 AM EDT) Pathologist [facility] HIV AB/AG Nonreactive Nonreactive [facility] Comment:HIV-1 p24 Ag and/or HIV-1/HIV-2 Ab not detected.A test result that is nonreactive does not exclude thepossibility of exposure to or infection with HIV-1 and/orHIV-2. Nonreactive results in this assay for individualswith prior exposure to HIV-1 and/or HIV-2 may be due toantigen and antibody levels that are below the limit ofdetection of this assay.The [employer] HIV Ag/Ab Combo assay result andsupplemental assay results should be interpreted inconjunction with the patient's clinical presentation,history and other laboratory results. If the results areinconsistent with clinical evidence, additional testing issuggested to confirm the result. 05/01/2023 8:45 AM EDT 05/01/2023 11:34 AM EDT us Elvie Hemphill MD LAB BLOOD ORDERABLES Final Result Performing Organization Address City/[facility]/ZIP Co de Phone Number [facility] [address] [place] [phone] * Hepatitis C Antibody with Reflex to HCV, RNA, Quantitative, Real-Time PCR (05/01/2023 8:45 AM EDT) Pathologist [facility] Hepatitis C Antibody Nonreactive Nonreactive [facility] Comment:Antibodies to HCV no t detected; does not exclude early acuteHCV infection. Blood Venous blood specimen / Unknown 05/01/2023 8:45 AM EDT 05/01/2023 11:34 AM EDT us Elvie Hemphill MD LAB BLOOD ORDERABLES Final Result Performing Organization Address City/[facility]/ZIP Co de Phone Number [facility] [address] [place] [phone] * HPV mRNA E6/E7 w/Reflex to HPV Genotypes 16, 18/45 (04/06/2023 12:00 AM EDT) HPV nRNA E6/E7 Not Detected Not Detected [facility] Comment:Methodology: Transcr iption-Mediated AmplificationThis assay detects E6/E7 viral messenger RNA (mRNA) from 14high-risk HPV types (16,18,31,33,35,39,45,51,52,56,58,59,66,68).Cervical sources are required for HPV testing.If a vaginal source from a patient who has had atotal hysterectomy with removal of cervix wassubmitted, please contact the testing laboratoryfor alternative testing options.For additional information, please refer tohttp://education.EXPO/faq/GNX040l6(This link if provided for information/educational purposes only.)THIS TEST WAS PERFORMED AT:[employer] [place] [phone] SWARTZ MD HPV mRNA E6/E7 [facility] HPV 16 RNA [facility] HPV 18/45 RNA [facility] 04/06/2023 04/09/2023 1:5 0 PM EDT Elvie Hemphill MD LAB CYTOLOGY ORDERABL ES Final Result [facility] [address] [place] [phone] * Pap Smear (04/06/2023) 04/06/2023 04/09/2023 1:5 0 PM EDT Narrative [facility] - 04/21/2023 2:15 PM EDT ----- ------- Name: Stephanie Mcrae ?Age/Sex: 52/F ? : 1970 Unit#: [id number] ?? Attend Dr: Elvie Cleaning MD ?Re04/06/23 ?Status: DEP REF ? Location: HO.HHCLNP ? Disch: ? ----- ------- SPEC : [id number] ?RECD: 04/09/23-374 ? STATUS: ??SOUT ? REQ NUM: [id number] ? JUSTICE: 04/06/23- ? SUBM DR: Elvie Cleaning MD ? ENTERED: ??04/10/23 ?SP TYPE: Pap Smr ?OTHR : ? ORDERED: ??Pap Smear ? Interpretation ?? Satisfactory for evaluation. ?? Negative for intraepithelial lesion or malignancy. ? HPV mRNA E6/E7: ?NOT DETECTED ? This assay detects E6/E7 viral messenger RNA (mRNA) from 14 high-risk HPV types (16, 18, ?? 31, 33, 35, 39, 45, 51, 52, 56, 58, 59, 66, 68) ? HPV testing performed by [facility], [place], [place]. ??See reference laboratory ?? portion of the EMR for entire report. ?Clinical Information LMP:Unknown date Previous PAP test:Unknown date/findings ? Material Received ?? ThinPrep-Vaginal/Cervical ----- ------- Signed (signature on file) Isabela Herr Briana 04/21/23 1415 ? ----- ------- ? END OF REPORT ? us Elvie Hemphill MD LAB CYTOLOGY ORDERABL ES Final Result [facility] [address] [place] [phone] from Last 3 Months or Most Recently Relevant to Health Maintenance Insurance [employer] Care Teams Engineering Writer Relationship Specialty Start Date End Date Elvie Cleaning MD [address] [place] [phone] PCP - General Family Medicine 04/24/18
--- OUTSIDE RECORDS SUMMARY | 2024-10-01 11:57 | XMS_ITS | Encounter Summary ---
Author Organization [employer] Address [address] [place] [address] 7 [place] [address] Care Team Providers Care Real Estate Rep Name Role Phone Elvie Cleaning MD Primary Care Provide r Reason for Visit * Reason Onset Date Comments Med Refill 09/16/2024 Encounter Details Date Type Department Care Team ([facility] st Contact Info) Description 09/16/2024 Refill [facility] [address] [place] [phone] Elvie Cleaning MD [address] [place] [address] Seasonal allergies Social History Tobacco Use Types [...] documented as of this encounter Care Teams Real Estate Rep Relationship Specialty Start Date End Date Elvie Cleaning MD [address] [place] [address] PCP - General Family Medicine 04/24/18 documented as of this encounter
--- OUTSIDE RECORDS SUMMARY | 2024-10-01 11:57 | XMS_ITS | Encounter Summary ---
Author Organization [employer] Address [address] [place] [address] Care Team Providers Care Loop Puller Name Role Phone Elvie Cleaning MD Primary Care Provide r Reason for Visit * Reason Comments Med Refill Encounter Details Date Type Department Care Team ([facility] Contact Info) Description 09/16/2024 Refill [facility] [address] [place] [phone] Brennan Mcgovern MD [address] [place] [phone] Social History Tobacco Use Types Packs/Day Years [...] documented as of this encounter Care Teams Loop Puller Relationship Specialty Start Date End Date Elvie Cleaning MD [address] [place] [address] PCP - General Family Medicine 04/24/18 documented as of this encounter
--- OUTSIDE RECORDS SUMMARY | 2024-10-01 11:57 | XMS_ITS | Encounter Summary ---
Author Organization [employer] Address [address] [place] [address] Care Team Providers Care Feed Management Advisor Name Role Phone Elvie Cleaning MD Primary Care Provide r Reason for Visit * Reason Comments Med Refill Encounter Details Date Type Department Care Team ([facility] Contact Info) Description 10/01/2024 Refill [facility] [address] [place] [phone] Brennan Mcgovern MD [address] [place] [phone] Social History Tobacco Use Types Packs/Day Years [...] documented as of this encounter Care Teams Feed Management Advisor Relationship Specialty Start Date End Date Elvie Cleaning MD [address] [place] [address] PCP - General Family Medicine 04/24/18 documented as of this encounter
--- OUTSIDE RECORDS SUMMARY | 2024-10-01 11:57 | XMS_ITS | Encounter Summary ---
Author Organization [employer] [facility] Address [address] [place] [address] 7t [place] [address] Care Team Providers Care Airplane Patrol Pilot Name Role Phone Elvie Cleaning MD Primary [...] on filedocumented in this encounter Care Teams Airplane Patrol Pilot Relationship Specialty Start Date End Date Elvie Cleaning MD [address] [place] [phone] PCP - General Family Medicine 04/24/18 documented as of this encounter
== END 2024-10-01 10:30 | disposition home or self-care (01) ==
LOC: HO.LAB 10:29
PROVIDERS: PCP Internal Medicine; Visit Provider Internal Medicine Pulmonary Disease
DX: J45.40 Moderate persistent asthma, uncomplicated (principal); J06.9 Acute upper respiratory infection, unspecified; Z91.09 Other allergy status, other than to drugs and biological substances; J41.1 Mucopurulent chronic bronchitis
CPT/HCPCS: 71046; 99212

== ENCOUNTER 2024-10-01 10:29 | Outpatient (AMB) | payer MEDICAID, SELFPAY ==
[2024-10-01 10:48] VITALS: BP 154/82; PULSE 117; TEMP 36.9; O2SAT 97; BMI 23.8
--- NOTE | 2024-10-01 10:48 | A.OFFVIS_ITS ---
Vital Signs 10/01/24 10:48 Height 5 ft 7 in Weight 152 lb 1.903 oz BMI 23.8 BP 154/82 H Blood Pressure Location Rt brachial Position Sitting Pulse 117 H Pulse Source Doppler Temp 98.5 F Temp Source Temporal Artery Scan Pulse Oximetry (%) 97 Oxygen Delivery Method Room Air Intake Visit Reasons: Asthma Allergies apple Allergy (Verified 10/01/24 10:52) Hives HPI HPI Asthma: Details: 54-year-old lady, nonsmoker, followed for underlying severe persistent allergic asthma and environmental allergies.? She continues to use Advair 500 and albuterol MDI with good control of her underlying symptoms.? Patient has been complaining of ongoing chronic bronchitic exacerbation over the last several months with only partial response to several prednisone pulses and a course of antibiotics. [facility] Social History Household Members: Other Housing: Apartment Do you presently have visiting nurse or other home services: No Alcohol intake: never Second Hand Smoke Exposure: No service: No Current occupational status: unemployed Review of Systems Const Denies daytime sleepiness, Denies excessive sweating, Denies fatigue, Denies fever(s), Denies lethargy, Denies malaise, Denies night sweats, Denies snoring and Denies weight loss Eyes Denies blurry vision and Denies itchy eyes ENT Denies nasal congestion, Denies post nasal drip, Denies sinus pain, Denies sinus pressure and Denies other ( Thrush) Card Denies chest pain, Denies pedal edema, Denies dyspnea, Denies orthopnea and Denies paroxysmal nocturnal dyspnea Resp Reports cough, Denies hemoptysis, Reports excessive phlegm production, Denies dyspnea, Denies snoring and Reports wheezing GI Denies abdominal pain and Denies heartburn Musc Denies myalgias, Denies arthralgias and Denies joint swelling Skin/Breast Denies rash Neuro Denies memory loss and Denies seizure-like activity Psych Denies abnormal sleep pattern, Denies anxiety and Denies memory loss Endo Denies excessive sweating, Denies fatigue and Denies heat intolerance Janak/Lymph Denies easy bruising Aller/Immun Denies itchy eyes, Denies seasonal rhinorrhea and Reports wheezing Physical Exam Vital Signs: Last Vital Signs Temp 98.5 F 10/01/24 10:48 Pulse 117 H 10/01/24 10:48 BP 154/82 H 10/01/24 10:48 Pulse Ox 97 10/01/24 10:48 Oxygen Delivery Method Room Air 10/01/24 10:48 BMI result Body Mass Index 23.8 Const General: no acute distress and alert Nutritional Appearance: not obese Orientation/consciousness: Other orientation findings ( oriented) HEENT Head: Yes atraumatic Eyes General: appearance normal, both eyes and all related structures Sclerae: sclerae normal EOM: EOMs intact bilaterally Neck Neck: Yes supple Lymphatic: no lymphadenopathy noted Resp Effort & Inspection: normal respiratory effort and no use of accessory muscles Auscultation: clear to auscultation bilaterally Cardio Rate: regular rate Rhythm: regular rhythm Heart sounds: no gallops, no murmurs and no rubs Skin General skin exam: other ( warm) Extrem General: No clubbing, No cyanosis and No edema Assessment & Plan Assessment & Plan (1) Moderate persistent asthma: Code(s): J45.40 - Moderate persistent asthma, uncomplicated Category: Medical Plan: Baseline well controlled on Advair and albuterol MDI. Continue current regimen. (2) Environmental allergies: Code(s): Z91.09 - Other allergy status, other than to drugs and biological substances Category: Medical Plan: No recent exacerbations. (3) Mucopurulent chronic bronchitis: Code(s): J41.1 - Mucopurulent chronic bronchitis Category: Medical Plan: Suboptimal response to several prednisone pulses and a course of antibiotics. Will obtain CBC, chest x-ray, and will treat with a course Levaquin and prednisone taper. Orders: Orders Complete Blood Count Auto Diff Today J06.9 - Acute upper respiratory infection, unspecified XR chest 2V Today J06.9 - Acute upper respiratory infection, unspecified Medications: New levofloxacin 750 mg PO DAILY 7 tabs 0RF J06.9 - Acute upper respiratory in fection, unspecified prednisone Take 4 tabs daily for 7 days, then go down by 1 tab every 7 days 10 mg PO DIRECTED 70 tabs 0RF J06.9 - Acute upper respiratory infection, unspecified Coding Level of Care Code Est Pt Level 4 (67322) Diagnoses Moderate persistent asthma J45.40 Environmental allergies Z91.09 Mucopurulent chronic bronchitis J41.1
--- OUTSIDE RECORDS SUMMARY | 2024-10-01 11:08 | XMS_ITS | Encounter Summary ---
Author Organization [employer] Address [address] [place] [address] Care Team Providers Care Technology Sales Specialist Name Role Phone Elvie Cleaning MD Primary Care Provide r Reason for Visit * Reason Comments Med Refill Encounter Details Date Type Department Care Team ([facility] Contact Info) Description 09/16/[address] [facility] [address] [place] [phone] Brennan Mcgovern MD [address] [place] [id number] Social History Tobacco Use Types Packs/Day Years Used Date Smoking Tobacco: Never Passive Smoke Exposure: Never Smokeless Tobacco: Never Alcohol Use Standard Drinks/Week Comments Never 0 (1 standard drink = 0.6 oz pur e alcohol) Depression Answer Date Recorded Patient Health Questionnaire-9 Score 0 02/18/2024 Patient Health Questionnaire-9 Score 0 02/18/2024 Last PHQ-9: Questionnaire Data Not on file 0 02/18/2024 Housing Stability Answer Date Recorded What is your housing situation today? I have steve benoit 02/06/[address] you li ve. Do you have problems with any of the following? None of the above 02/06/2024 Food Insecurity Answer Date Recorded Within the past 12 months, y ou worried that your food would run out before you got money to buy more: Never True 02/06/2024 Within the past 12 months,th e food you bought just didn't last and you didn't have enough money to get more: Never True Transportation Answer Date Recorded In the past 12 months, has l ack of transportation kept you from medical appts, meetings, work or from getting things needed for daily living? Yes, it has kept me from non-medical meetings, work, or getting things that I need 02/06/2024 Utilities Answer Date Recorded In the past 12 months, has t he electric, gas, oil or water company threatened to shut off services in your home? No 02/06/2024 Depression Answer Date Recorded Patient Health Questionnaire-2 Score 0 02/18/2024 Internet Access Answer Date Recorded Internet Access Q1 Yes 04/13/2024 Internet Access Q2 Not on file 04/13/2024 Comments Unknown Sex and Gender Information Value Date Recorded Sex Assigned at Female 06/12/2022 10:14 AM EDT Legal Sex Female 10:14 AM EDT Gender Identity Female 06/12/2022 10:14 AM EDT Sexual Orientation Choose not to disclose 2021 10:14 AM EDT documented as of this encounter Plan of Treatment Not on file documented as of this encounter Visit Diagnoses Not on filedocumented in this encounter Additional Health Concerns Assessment Noted Time PHQ-9 Depression Total Score: 0 02/18/20 24 9:38 AM EDT documented as of this encounter Care Teams Technology Sales Specialist Relationship Specialty Start Date End Date Elvie Cleaning MD [address] [place] [address] PCP - General Family Medicine 04/24/18 documented as of this encounter
--- OUTSIDE RECORDS SUMMARY | 2024-10-01 11:08 | XMS_ITS | Encounter Summary ---
Author Organization [employer] Address [address] [place] [address] [address] [place] [address] Care Team Providers Care Mixing Machine Tender Name Role Phone Elvie Cleaning MD Primary Care Provide r Reason for Visit * Reason Onset Date Comments Med Refill 09/16/2024 Encounter Details Date Type Department Care Team ([facility] st Contact Info) Description 09/16/2024 Refill [facility] [address] [place] [address] Elvie Cleaning MD [address] [place] [address] Seasonal allergies Social History Tobacco Use Types Packs/Day Years [...] documented as of this encounter Visit Diagnoses Diagnosis Seasonal allergies Allergic rhinitis, cause unspecified documented in this encounter Additional Health Concerns Assessment Noted Time PHQ-9 Depression Total Score: 0 02/18/20 24 9:38 AM EDT documented as of this encounter Care Teams Mixing Machine Tender Relationship Specialty Start Date End Date Elvie Cleaning MD [address] [place] [address] PCP - General Family Medicine 04/24/18 documented as of this encounter
--- OUTSIDE RECORDS SUMMARY | 2024-10-01 11:08 | XMS_ITS | Encounter Summary ---
Author Organization [employer] Address [address] [place] [address] Care Team Providers Care Practice Physician Name Role Phone Elvie Cleaning MD Primary Care Provide r Reason for Visit * Reason Comments Med Refill Encounter Details Date Type Department Care Team ([facility] Contact Info) Description 10/01/2024 Refill [facility] [address] [place] [phone] Brennan Mcgovern MD [address] [place] [id number] Social History Tobacco Use Types Packs/Day Years [...] documented as of this encounter Care Teams Practice Physician Relationship Specialty Start Date End Date Elvie Cleaning MD [address] [place] [address] PCP - General Family Medicine 04/24/18 documented as of this encounter
--- OUTSIDE RECORDS SUMMARY | 2024-10-01 11:09 | XMS_ITS | Encounter Summary ---
Author Organization [facility] [facility] Address [address] [place] [address] [address] [place] [address] Care Team Providers Care Photoengraver Apprentice Name Role Phone Elvie Cleaning MD Primary Care Provide r Encounter Details Date Type Department Care Team (Latest Contact Info) Description 05/06/2019 [facility] Dental, Provider, DDS Social History Tobacco Use Types Packs/Day Years Used Date Smoking Tobacco: Never Assessed Comments Unknown Sex and Gender Information Value [...] Diagnoses Not on filedocumented in this encounter Care Teams Photoengraver Apprentice Relationship Specialty Start Date End Date Elvie Cleaning MD [address] [place] [id number] PCP - General Family Medicine 04/24/18 documented as of this encounter
--- OUTSIDE RECORDS SUMMARY | 2024-10-01 11:09 | XMS_ITS | Clinical Summary ---
Author Organization [facility] Address [address] [place] [address] Care Team Providers Care Shop Girl Name Role Phone Elvie Cleaning MD Primary Care Provide r Allergies Active Allergy Reactions Criticality Noted Date Comments Apple Juice Rash Low 02/18/2024 Lucas Rash Low 02/18/2024 Flavoring Agent (Non-Screening) Rash Low 03/2024 Medications albuterol 108 (90 Base) MCG/ACT inhalerIndicat ions:Uncomplic ated asthma, unspecified asthma severity, unspecified whether persistent INHALE 2 PUFFS BY MOUTH EVERY 4 TO 6 HOURS NEEDED 18 g 1 02/03/20 23 Active Blood Pressure kit 1 each 2 times daily. 1 kit 06/09/20 24 025 Active Fluticasone-Sa lmeterol (Advair Diskus) 500-50 MCG/ACT aerosol powder Inhale. Activ e azithromycin (Zithromax Z-Abiodun) 250 MG tablet Take 2 tablets once on day 1, then 1 tablet 1x/day for 4 days. 6 tablet 06/09/20 24 Active cetirizine (ZyrTEC) 10 MG tabletIndicati ons:Seasonal allergies TAKE 1 TABLET BY MOUTH EVERY DAY NEEDED FOR ALLERGIES 90 tablet 1 07/22/20 24 Active albuterol (2.5 MG/3ML) 0.083% nebulizer solution Take 3 mL (2.5 mg) by nebulization every 6 (six) hours if needed for wheezing or shortness of breath. 75 mL 2 07/25/20 24 Active famotidine (Pepcid) 20 MG tablet TAKE 1 TABLET BY MOUTH TWICE DAILY 180 tablet 09/16/19 25 Active famotidine (Pepcid) 20 MG tablet Take 1 tablet (20 mg) by mouth 2 times daily. 60 tablet 1 07/25/20 24 025 Discontinued Active Problems Problem Noted Date Diagnosed Date Colon cancer screening 02/18/2024 Change in mole 02/18/2024 Anxiety 02/18/2024 Assessment & Plan (02/18/2024 5:03 PM EDT): Continue to follow with therapist and psychiatrist Encounter for Papanicolaou smear of cervix 04/06 Assessment & Plan (04/06/2023 11:06 AM EDT): PAP smear an pelvic exam done today Patient will be contacted with results Encounter for screening and preventative care Assessment & Plan (02/18/2024 5:03 PM EDT): See HPI Assessment & Plan (02/02/2023 10:05 AM EDT): Please refer to HPI Encounter for screening mamm ogram for malignant neoplasm of breast 02/02/2023 Seasonal allergies 02/02/2023 Tachycardia 02/02/2023 Assessment & Plan (04/06/2023 11:05 AM EDT): Again patient's anxiety triggers her tachycardia Assessment & Plan (02/02/2023 10:06 AM EDT): Patient with elevated HR due to her anxiety Gastroesophageal reflux disease 01/30/2023 Moderate persistent asthma 01/30/2023 Mood disorder 01/30/2023 Assessment & Plan (02/02/2023 10:05 AM EDT): Continue to follow with therapist and psychiatrist Encounters Date Type Department Care Team Description 10/01/2024 Refill [facility] [address] [place] [phone] Brennan Mcgovern MD 09/16/2024 Refill [facility] [address] [place] [phone] Elvie Cleaning MD Seasonal allergies 09/16/2024 Refill [facility] [address] [place] [phone] Brennan Mcgovern MD 07/30/2024 Telephone [facility] [address] [place] [phone] Brennan Mcgovern MD 07/25/2024 8:40 AM EST Office Visit [facility] [address] [place] [phone] Brennan Mcgovern MD Moderate persistent asthma with acute exacerbation (Primary Dx); Gastroesophageal reflux disease, unspecified whether esophagitis present; Viral URI 07/25/2024 Telephone [facility] [address] [place] [phone] Aleyda Silva RN [place] Neb dispensed 07/20/2024 Refill [facility] [address] [place] [phone] Elvie Cleaning MD Seasonal allergies from Last 3 Months Social History Tobacco Use Types Packs/Day Years Used Date Smoking Tobacco: Never Passive Smoke Exposure: Never Smokeless Tobacco: Never Tobacco Cessation:Counseling Given: Not Answered Alcohol Use Standard Drinks/Week Comments Never 0 [...] not to disclose 2021 10:14 AM EDT Last Filed Vital Signs Vital Sign Reading Time Taken Comments Blood Pressure 138/88 07/25/2024 8:42 AM EST Pulse 103 07/25/2024 8:58 AM EST Temperature 36.4 ??C (97.5 ??F) 07/25/2024 8:42 AM ES T Respiratory Rate 18 07/25/2024 8:42 AM EST Oxygen Saturation 98% 07/25/2024 8:42 AM EST Inhaled Oxygen Concentration - - Weight 68.5 kg (151 lb) 07/25/2024 8:42 AM EST Height 170.2 cm (5' 7 ) 02/18/2024 9:36 AM EDT Body Mass Index 23.65 02/18/2024 9:36 AM EDT Plan of Treatment Health Maintenance Due Date Last Done Comments CT Colonography 1972 Colonoscopy 1972 Colorectal Cancer Screening 1972 FIT DNA/Cologuard 1972 FIT 1972 FOBT 1972 Sigmoidoscopy 1972 Alcohol/Substance Use Screening 1984 Family Planning (PISQ) 1987 DTaP/Tdap/Td Vaccines (1 - Tdap) 1991 Hepatitis B Vaccines (1 of 3 - 19+ 3-dose series) 1991 Pneumococcal Vaccine: 50+ Years (1 of 2 - PCV) 1991 Mammogram 2012 Zoster Vaccines (1 of 2) 2022 COVID-19 Vaccine (1 - 2023-2 5 season) 2024 Influenza Vaccine (#1) 2024 SDOH Screening 02/05/2025 02/06/2024 Depression Screening 02/17/2025 02/18/2024, 02/18/2024 Tobacco Screening 07/25/2025 07/25/2024 Cervical Cancer Screening 04/06/2028 HPV/Cotest 04/06/2028 04/06/2023, 02/26/2019 Pap Smear 04/06/2028 04/06/2023 RSV Patients and Patients Aged 60 years or older (1 - 1-dose 75+ series) 2047 HIV Screening Completed 05/01/2023 Hepatitis C Screening Completed 05/01/2023 HIB Vaccines Aged Out No longer eligi ble based on patient's age to complete this topic HPV Vaccines Aged Out No longer eligi ble based on patient's age to complete this topic Hepatitis A Vaccines Aged Out No long er eligible based on patient's age to complete this topic IPV Vaccines Aged Out No longer eligi ble based on patient's age to complete this topic Meningococcal Vaccine Aged Out No jose jamie eligible based on patient's age to complete this topic RSV under 20 months Aged Out No longe r eligible based on patient's age to complete this topic Rotavirus Vaccines Aged Out No longer eligible based on patient's age to complete this topic Procedures Procedure Name Priority Date/Time Associated Diagnosis Comments HELICOBACTER PYLORI AG, EIA, STOOL Routine 07/27/2024 12:30 PM EST Gastroesophageal reflux disease, unspecified whether esophagitis present RESPIRATORY VIRAL PANEL PCR Routine 07/25/2024 9:18 AM EST Moderate persistent asthma with acute exacerbation POCT INFLUENZA B (ID NOW RAPID MOLECULAR) Routine 07/25/2024 8:54 AM EST Viral URI POCT INFLUENZA A (ID NOW RAPID MOLECULAR) Routine 07/25/2024 8:54 AM EST Viral URI POCT RAPID COVID ANTIGEN Routine 07/25/2024 8:54 AM EST Viral URI HEPATITIS C AB W/REFL TO HCV RNA, QN, PCR Routine 05/01/2023 8:45 AM EDT Tachycardia HIV ANTIBODY/ANTIGEN ([place] [facility]) Routine 05/01/2023 8:45 AM EDT HPV MRNA E6/E7 REFLEX TO HPV 16, 18/45 Routine 04/06/2023 12:00 AM EDT PAP SMEAR Routine 04/06/2023 from Last 3 Months or Most Recently Relevant to Health Maintenance Results * Helicobacter pylori??Antigen, EIA, Stool (07/27/2024 12:30 PM EST) H pylori Ag Stool SEE NOTE [facility] Comment:HELICOBACTER PYLORI AG, EIA, STOOL Micro Number: [id number] Test Status: Final Specimen Source: Stool Specimen Quality: Adequate H.pylori Ag: Not Detected Antimicrobials, proton pump inhibitors, and bismuth preparations inhibit H. pylori and ingestion up to two weeks prior to testing may cause false negative results. If clinically indicated the test should be repeated on a new specimen obtained two weeks after discontinuing treatment. Reference Range: Not DetectedTHIS TEST WAS PERFORMED AT:[address] [place] [id number] SWARTZ MD Stool Rectal contents / Unknown 07/27/2024 12:30 PM EST 07/28/2024 12:28 PM EST us Brennan Mcgovern MD LAB BODY FLUIDS AND STOOLS ORDER CARLIE Final Result [facility] [address] [place] [phone] * Respiratory Viral Panel PCR (07/25/2024 9:18 AM EST) Adenovirus PCR Not Detected Not Detect. [facility] Bordetella pertussis PCR Not Detected Not Detect. [facility] Comment:Interpret results wi th caution. If B. pertussis isspecifically suspected, additional testing using analternate method is recommended. Bordetella parapertussis PCR Not Detected Not Detect. [facility] Chlamydia pneumoniae PCR Not Detected Not Detect. [facility] Coronavirus 229E PCR Not Detected Not Detect. [facility] Coronavirus HKU1 PCR Not Detected Not Detect. [facility] Coronavirus NL63 PCR Not Detected Not Detect. [facility] Coronavirus OC43 PCR Not Detected Not Detect. [facility] SARS-CoV-2 PCR Not Detected Not Detect. [facility] Comment:SARS-CoV-2 not detec allegra by real-time RT-PCR.Note: If clinical suspicion for Sars-CoV-2 is high, continueto maintain precautions and consider repeat testing.Test results should be interpreted in the context ofclinical findings and other laboratory data.Rare polymorphisms exist that could lead to false-negativeor false-positive results. If results do not match theclinical findings, additional testing should be considered.Results reported to [facility].This test has been authorized by the FDA under the EmergencyUse Authorization (EUA) for use by authorized laboratories. Influenza A PCR Not Detected Not Detect. [facility] Influenza B PCR Not Detected Not Detect. [facility] Human metapneumovirus PCR Not Detected Not Detect. [facility] Rhino/Enterovirus PCR Not Detected Not Detect. [facility] Mycoplasma pneumoniae PCR Not Detected Not Detect. [facility] Parainfluenza 1 PCR Not Detected Not Detect. [facility] Parainfluenza 2 PCR Not Detected Not Detect. [facility] Parainfluenza 3 PCR Not Detected Not Detect. [facility] Parainfluenza 4 PCR Not Detected Not Detect. [facility] RSV PCR Not Detected Not Detect. [facility] Resp Panel NA Note See Note [facility] Comment:All results must be correlated with clinical findings.Negative results should not be used as the sole basis fordiagnosis, treatment, or other management decisions.A negative result does not exclude the possibility of viralor bacterial infection. Negative results may occur from thepresence of sequence variants in the region targeted by theassay, the presence of inhibitors, an infection caused by anorganism not detected by the panel, or lower respiratorytract infections that are not detected by a nasopharyngealswab specimen. Test results may also be affected byconcurrent antiviral/antibacterial therapy or levels oforganism in the specimen that are below the limit ofdetection for this test.This assay is performed by Multiplexed PCR, utilizing [employer]. Swab 07/25/2024 9:18 AM EST 07/25/2024 5:25 PM EST us Brennan Mcgovern MD LAB BLOOD ORDERABLES Final Resul t Performing Organization Address [facility] Co de Phone Number [facility] [address] [place] [phone] * Influenza B (ID NOW Rapid Molecular) (07/25/2024 8:54 AM EST) Influenza B Negative Negative, Indeterminate [facility] Swab 07/25/2024 8:54 AM EST us Brennan Mcgovern MD POINT OF CARE TEST ENTER/EDIT OR DERABLES Final Result Performing Organization Address [facility] de Phone Number [facility] [address] [place] [phone] * Influenza A (ID NOW Rapid Molecular) (07/25/2024 8:54 AM EST) Influenza A Negative Negative, Indeterminate [facility] Swab 07/25/2024 8:54 AM EST us Brennan Mcgovern MD POINT OF CARE TEST ENTER/EDIT OR DERABLES Final Result Performing Organization Address [facility] Co de Phone Number [facility] [address] [place] [phone] * POCT Rapid COVID Ag (07/25/2024 8:54 AM EST) Rapid COVID Ag Negative [facility] Swab 07/25/2024 8:54 AM EST us Brennan Mcgovern MD POINT OF CARE TEST ENTER/EDIT OR DERABLES Final Result Performing Organization Address [facility] Co de Phone Number [facility] [address] [place] [phone] * HIV Ab/Ag ([facility]) (05/01/2023 8:45 AM EDT) HIV AB/AG Nonreactive Nonreactive [facility] Comment:HIV-1 p24 Ag and/or HIV-1/HIV-2 Ab not detected.A test result that is nonreactive does not exclude thepossibility of exposure to or infection with HIV-1 and/orHIV-2. Nonreactive results in this assay for individualswith prior exposure to HIV-1 and/or HIV-2 may be due toantigen and antibody levels that are below the limit ofdetection of this assay.[employer] HIV Ag/Ab Combo assay result andsupplemental assay results should be interpreted inconjunction with the patient's clinical presentation,history and other laboratory results. If the results areinconsistent with clinical evidence, additional testing issuggested to confirm the result. 05/01/2023 8:45 AM EDT 05/01/2023 11:34 AM EDT us Elvie Hemphill MD LAB BLOOD ORDERABLES Final Result Performing Organization Address [facility]/ZIP Co de Phone Number [facility] [address] [place] [phone] * Hepatitis C Antibody with Reflex to HCV, RNA, Quantitative, Real-Time PCR (05/01/2023 8:45 AM EDT) Hepatitis C Antibody Nonreactive Nonreactive [facility] Comment:Antibodies to HCV no t detected; does not exclude early acuteHCV infection. Blood Venous blood specimen / Unknown 05/01/2023 8:45 AM EDT 05/01/2023 11:34 AM EDT us Elvie Hemphill MD LAB BLOOD ORDERABLES Final Result Performing Organization Address [facility] Co de Phone Number [facility] [address] [place] [phone] * HPV mRNA E6/E7 w/Reflex to HPV Genotypes 16, 18/45 (04/06/2023 12:00 AM EDT) HPV nRNA E6/E7 Not Detected Not Detected [facility] Comment:Methodology: Transcr iption-Mediated AmplificationThis assay detects E6/E7 viral messenger RNA (mRNA) from 14high-risk HPV types (16,18,31,33,35,39,45,51,52,56,58,59,66,68).Cervical sources are required for HPV testing.If a vaginal source from a patient who has had atotal hysterectomy with removal of cervix wassubmitted, please contact the testing laboratoryfor alternative testing options.For additional information, please refer tohttp://education.Fancred/faq/YUK371l3(This link if provided for information/educational purposes only.)THIS TEST WAS PERFORMED AT:[address] [place] [phone] SWARTZ MD HPV mRNA E6/E7 [facility] HPV 16 RNA [facility] HPV 18/45 RNA [facility] 04/06/2023 04/09/2023 1:5 0 PM EDT us Elvie Hemphill MD LAB CYTOLOGY ORDERABL ES Final Result Performing Organization Address [facility] Co de Phone Number [facility] [address] [place] [phone] * Pap Smear (04/06/2023) 04/06/2023 04/09/2023 1:5 0 PM EDT Narrative [facility] - 04/21/2023 2:15 PM EDT ----- ------- Name: Stephanie Mcrae ?Age/Sex: 52/F ? : 1970 Unit#: [id number] ?? Attend Dr: Elvie Cleaning MD ?Re04/06/23 ?Status: DEP REF ? Location: [facility] ? Disch: ? ----- ------- SPEC : [id number] ?RECD: 04/09/23-1349 ? STATUS: ??SOUT ? REQ NUM: [id number] ? JUSTICE: 04/06/23- ? SUBM DR: Elvie Cleaning MD ? ENTERED: ??04/10/23-926 ?SP TYPE: Pap Smr ?OTHR DR: ? ORDERED: ??Pap Smear ? Interpretation ?? Satisfactory for evaluation. ?? Negative for intraepithelial lesion or malignancy. ? HPV mRNA E6/E7: ?NOT DETECTED ? This assay detects E6/E7 viral messenger RNA (mRNA) from 14 high-risk HPV types (16, 18, ?? 31, 33, 35, 39, 45, 51, 52, 56, 58, 59, 66, 68) ? HPV testing performed by [employer] [facility], [place], [place]. ??See reference laboratory ?? portion of the EMR for entire report. ?Clinical Information LMP:Unknown date Previous PAP test:Unknown date/findings ? Material Received ?? ThinPrep-Vaginal/Cervical ----- ------- Signed (signature on file) Isabela Herr Briana 04/21/23 0855 ? ----- ------- ? END OF REPORT ? us Elvie Hemphill MD LAB CYTOLOGY ORDERABL ES Final Result [facility] [address] [place] [phone] from Last 3 Months or Most Recently Relevant to Health Maintenance Insurance [employer] Care Teams Shop Girl Relationship Specialty Start Date End Date Elvie Cleaning MD [address] [place] [phone] PCP - General Family Medicine 04/24/18
== END 2024-10-01 11:12 | disposition home or self-care (01) ==
PROVIDERS: PCP Internal Medicine; Visit Provider Internal Medicine Pulmonary Disease
DX: J45.40 Moderate persistent asthma, uncomplicated (principal); Z91.09 Other allergy status, other than to drugs and biological substances; J41.1 Mucopurulent chronic bronchitis
CPT/HCPCS: 99214

== ENCOUNTER → 2024-10-01 11:18 | Outpatient (BNV) | payer MEDICAID, SELFPAY | PROVIDERS: PCP Internal Medicine; Visit Provider Radiology Diagnostic Radiology | DX: J18.9 Pneumonia, unspecified organism (principal) | CPT/HCPCS: 71046 ==

== ENCOUNTER 2024-12-12 09:35 | Outpatient (REF) | payer MEDICAID, SELFPAY ==
--- NOTE | ~2024-12-12 | XR_ITS ---
EXAMINATION: XR CHEST CLINICAL INFORMATION: COUGH COMPARISON: October 01, 2024. TECHNIQUE: 2 views of the chest were obtained. FINDINGS: Wedge-shaped opacity, right middle lung lobe. There is low lung volume on the right lung. No pneumothorax. No pleural effusion. Cardiomediastinal silhouette size is normal. S-shaped curvature of the thoracolumbar spine. XR/XR chest 2V IMPRESSION: Acute airspace disease/pneumonia, right middle lung lobe. Underlying lesion cannot be excluded. Scoliosis, lumbar spine. Electronically signed by: Balta Cunningham MD 12/12/2024 09:58 AM EDT
[2024-12-12 15:01] LABS: Adenovirus PCR Not Detected (Not Detect.); Bordetella parapertussis PCR Not Detected (Not Detect.); Bordetella pertussis PCR Not Detected (Not Detect.); Chlamydia pneumoniae PCR Not Detected (Not Detect.); Coronavirus 229E PCR Not Detected (Not Detect.); Coronavirus HKU1 PCR Not Detected (Not Detect.); Coronavirus NL63 PCR Not Detected (Not Detect.); Coronavirus OC43 PCR Not Detected (Not Detect.); Human metapneumovirus PCR Not Detected (Not Detect.); Influenza A PCR Not Detected (Not Detect.); Influenza B PCR Not Detected (Not Detect.); Mycoplasma pneumoniae PCR Not Detected (Not Detect.); Parainfluenza 1 PCR Not Detected (Not Detect.); Parainfluenza 2 PCR Not Detected (Not Detect.); Parainfluenza 3 PCR Not Detected (Not Detect.); Parainfluenza 4 PCR Not Detected (Not Detect.); RSV PCR Not Detected (Not Detect.); Rhino/Enterovirus PCR Not Detected (Not Detect.)
[2024-12-12 15:18] LABS: Influenza A H1 PCR Not Detected (Not Detect.); Influenza A H1-2009 PCR Not Detected (Not Detect.); Influenza A H3 PCR Not Detected (Not Detect.); SARS-CoV-2 PCR Not Detected (Not Detect.)
== END 2024-12-12 09:36 | disposition home or self-care (01) ==
LOC: HO.HHCX 09:35
PROVIDERS: Visit Provider Family Medicine
DX: R05.9 Cough, unspecified (principal)
CPT/HCPCS: 71046; 87633

== ENCOUNTER → 2024-12-12 09:36 | Outpatient (BNV) | payer MEDICAID, SELFPAY | PROVIDERS: Visit Provider Radiology Diagnostic Radiology | DX: M41.86 Other forms of scoliosis, lumbar region (principal) | CPT/HCPCS: 71046 ==

== ENCOUNTER 2025-02-02 13:43 | Outpatient (AMB) | payer MEDICAID, SELFPAY ==
[2025-02-02 14:40] VITALS: BP 128/67; PULSE 130; O2SAT 96; BMI 22.7
--- NOTE | 2025-02-02 14:40 | MHC.OFFVIS ---
Vital Signs 02/02/25 14:40 Height 5 ft 7 in Weight 145 lb BMI 22.7 BP 128/67 Blood Pressure Location Rt brachial Position Sitting Pulse 130 H Pulse Source Pulse Oximeter Pulse Oximetry (%) 96 Oxygen Delivery Method Room Air Intake Visit Reasons: asthma Night Shift Manager Required: Yes Night Shift Manager Name: Jocelyn Floyd Robles Allergies apple Allergy (Verified 02/02/25 14:44) Hives HPI HPI asthma: Details: 54-year-old lady, nonsmoker, followed for underlying severe persistent allergic asthma and environmental allergies.? She continues to use Advair 500 and albuterol MDI with good control of her underlying symptoms.? Patient has been complaining of ongoing chronic bronchitic exacerbation over the last several months with only partial response to several prednisone pulses and several courses of antibiotics including Levaquin. [facility] Social History Household Members: Other Housing: Apartment Do you presently have visiting nurse or other home services: No Alcohol intake: never Second Hand Smoke Exposure: No service: No Current occupational status: unemployed Review of Systems Const Denies daytime sleepiness, Denies excessive sweating, Denies fatigue, Denies fever(s), Denies lethargy, Denies malaise, Denies night sweats, Denies snoring and Denies weight loss Eyes Denies blurry vision and Denies itchy eyes ENT Denies nasal congestion, Denies post nasal drip, Denies sinus pain, Denies sinus pressure and Denies other ( Thrush) Card Denies chest pain, Denies pedal edema, Denies dyspnea, Denies orthopnea and Denies paroxysmal nocturnal dyspnea Resp Reports cough, Denies hemoptysis, Reports excessive phlegm production, Denies dyspnea, Denies snoring and Denies wheezing GI Denies abdominal pain and Denies heartburn Musc Denies myalgias, Denies arthralgias and Denies joint swelling Skin/Breast Denies rash Neuro Denies memory loss and Denies seizure-like activity Psych Denies abnormal sleep pattern, Denies anxiety and Denies memory loss Endo Denies excessive sweating, Denies fatigue and Denies heat intolerance Janak/Lymph Denies easy bruising Aller/Immun Denies itchy eyes, Denies seasonal rhinorrhea and Denies wheezing Physical Exam Vital Signs: Last Vital Signs Pulse 130 H 02/02/25 14:40 BP 128/67 02/02/25 14:40 Pulse Ox 96 02/02/25 14:40 Oxygen Delivery Method Room Air 02/02/25 14:40 BMI result Body Mass Index 22.7 Const General: no acute distress and alert Nutritional Appearance: not obese Orientation/consciousness: Other orientation findings ( oriented) HEENT Head: Yes atraumatic Eyes General: appearance normal, both eyes and all related structures Sclerae: sclerae normal EOM: EOMs intact bilaterally Neck Neck: Yes supple Lymphatic: no lymphadenopathy noted Resp Effort & Inspection: normal respiratory effort and no use of accessory muscles Auscultation: clear to auscultation bilaterally Cardio Rate: regular rate Rhythm: regular rhythm Heart sounds: no gallops, no murmurs and no rubs Skin General skin exam: other ( warm) Extrem General: No clubbing, No cyanosis and No edema Assessment & Plan Assessment & Plan (1) Moderate persistent asthma: Code(s): J45.40 - Moderate persistent asthma, uncomplicated Category: Medical Plan: Well controlled on current regimen of Advair and albuterol MDI. Continue current regimen. (2) Mucopurulent chronic bronchitis: Code(s): J41.1 - Mucopurulent chronic bronchitis Category: Medical Plan: Poor response to several empiric antibiotic courses and prednisone. Will obtain sputum culture. (3) Environmental allergies: Code(s): Z91.09 - Other allergy status, other than to drugs and biological substances Category: Medical Plan: Reasonable control on as needed antihistamines. Orders: Orders Fungus Cult Other Today J41.1 - Mucopurulent chronic bronchitis Sputum Cult + Gram stain Today J41.1 - Mucopurulent chronic bronchitis Acid-fast Culture + Smear Today J41.1 - Mucopurulent chronic bronchitis Coding Level of Care Code Est Pt Level 4 (17277) Diagnoses Moderate persistent asthma J45.40 Mucopurulent chronic bronchitis J41.1 Environmental allergies Z91.09
--- OUTSIDE RECORDS SUMMARY | 2025-02-02 15:10 | XMS_ITS | Encounter Summary ---
Author Organization [employer] Address [address] [place] [address] 7 [place] [address] Care Team Providers Care Railroad Commissioner Name Role Phone Elvie Cleaning MD Primary Care Provide r Reason for Visit * Reason Onset Date Comments Med Refill 09/16/2024 Encounter Details Date Type Department Care Team ([facility] st Contact Info) Description 09/16/2024 Refill [facility] [address] [place] [address] Elvie Cleaning MD [address] [place] [address] Seasonal allergies Social History Tobacco Use Types [...] as of this encounter Plan of Treatment Upcoming Encounters Date Type Department Care Team (Late st Contact Info) Description 02/23/2025 9:15 AM EDT Office Visit [facility] [address] [place] [phone] Elvie Cleaning MD [address] [place] [phone] documented as of this encounter Visit Diagnoses Diagnosis Seasonal allergies Allergic rhinitis, cause unspecified documented in this encounter Additional Health Concerns Assessment Noted Time PHQ-9 Depression Total Score: 0 02/18/20 24 9:38 AM EDT documented as of this encounter Care Teams Railroad Commissioner Relationship Specialty Start Date End Date Elvie Cleaning MD [address] [place] [phone] PCP - General Family Medicine 04/24/18 documented as of this encounter
== END 2025-02-02 14:59 | disposition home or self-care (01) ==
LOC: HO.HPS 13:43
PROVIDERS: PCP Internal Medicine; Visit Provider Internal Medicine Pulmonary Disease
DX: J45.40 Moderate persistent asthma, uncomplicated (principal); J41.1 Mucopurulent chronic bronchitis; Z91.09 Other allergy status, other than to drugs and biological substances
CPT/HCPCS: 99214

== ENCOUNTER → 2025-02-02 13:43 | Outpatient (BNVA) | payer MEDICAID, SELFPAY | PROVIDERS: PCP Internal Medicine; Visit Provider Internal Medicine Pulmonary Disease | DX: J41.1 Mucopurulent chronic bronchitis (principal); J45.50 Severe persistent asthma, uncomplicated; Z91.09 Other allergy status, other than to drugs and biological substances | CPT/HCPCS: 99212 ==

== ENCOUNTER 2025-02-04 09:26 | Outpatient (REF) | payer MEDICAID, SELFPAY | END 2025-02-04 09:27 | disposition home or self-care (01) | LOC: HO.LNP 09:26 | PROVIDERS: Visit Provider Internal Medicine Pulmonary Disease | DX: J41.1 Mucopurulent chronic bronchitis (principal) | CPT/HCPCS: 87070; 87102; 87106; 87116; 87205; 87206 ==

== ENCOUNTER 2025-02-16 11:38 | Outpatient (REF) | payer MEDICAID, SELFPAY | END 2025-02-16 11:39 | disposition home or self-care (01) | LOC: HO.LNP 11:38 | PROVIDERS: Visit Provider Internal Medicine Pulmonary Disease | DX: J41.1 Mucopurulent chronic bronchitis (principal) | CPT/HCPCS: 87070; 87102; 87106; 87116; 87185; 87205; 87206 ==

== ENCOUNTER 2025-02-23 10:02 | Outpatient (REF) | payer MEDICAID, SELFPAY ==
--- OUTSIDE RECORDS SUMMARY | 2025-02-23 09:15 | XMS_ITS | Encounter Summary ---
Author Organization [employer] Address [address] [place] [address] 7 [place] [address] Care Team Providers Care Pie Maker Machine Name Role Phone Elvie Cleaning MD Primary Care Provide r Reason for Referral * Imaging (Routine) - Closed Specialty Diagnoses / Procedures Referred By Contac t Referred To Contact Radiology Diagnoses Encounter for screening mammogram for malignant neoplasm of breast Procedures BI Mammogram Screening Tomosynthesis Bilateral Elvie Cleaning MD [address] [place] [phone] Phone: tel: fax: [address] Phone: tel: fax: Referral ID Status Reason Start Date Expiration Date Visits Re quested Visits Authorized [id number] Closed 02/23/2025 02/23/2026 1 1 Reason for Visit * Reason Comments Annual Exam Encounter Details Date Type Department Care Team (Late st Contact Info) Description 02/23/2025 9:15 AM EDT Office Visit [facility] [address] [place] [address] [phone] Elvie Cleaning MD [address] [place] [address] [phone] Encounter for screening and preventative care (Primary Dx); Moderate persistent asthma, unspecified whether complicated; Encounter for screening mammogram for malignant neoplasm of breast; Screening for colon cancer Social History Tobacco Use Types Packs/Day Years Used Date Smoking Tobacco: Never Passive Smoke Exposure: Never Smokeless Tobacco: Never Tobacco Cessation:Counseling Given: Not Answered Alcohol Use Standard Drinks/Week Comments Never 0 (1 standard drink = 0.6 oz pur e alcohol) Depression Answer Date Recorded Patient Health Questionnaire-9 Score 0 02/23/2025 Patient Health Questionnaire-9 Score 0 02/23/2025 Last PHQ-9: Questionnaire Data Not on file 0 02/23/2025 Housing Stability Answer Date Recorded What is your housing situation today? I have steve benoit 02/16/[address] you li ve. Do you have problems with any of the following? None of the above 02/16/2025 Food Insecurity Answer Date Recorded Within the past 12 months, y ou worried that your food would run out before you got money to buy more: Never True 02/16/2025 Within the past 12 months,th e food you bought just didn't last and you didn't have enough money to get more: Never True 02/2025 Transportation Answer Date Recorded In the past 12 months, has l ack of transportation kept you from medical appts, meetings, work or from getting things needed for daily living? Yes, it has kept me from medical appointments or getting medications. 02/16/2025 Utilities Answer Date Recorded In the past 12 months, has t he electric, gas, oil or water company threatened to shut off services in your home? No 02/16/2025 Depression Answer Date Recorded Patient Health Questionnaire-2 Score 0 02/23/2025 Internet Access Answer Date Recorded Internet Access Q1 Yes 02/16/2025 Internet Access Q2 Not on file 02/16/2025 Comments Unknown Sex and Gender Information Value Date Recorded Sex Assigned at Female 06/12/2022 10:14 AM EDT Legal Sex Female 10:14 AM EDT Gender Identity Female 06/12/2022 10:14 AM EDT Sexual Orientation Choose not to disclose 2021 10:14 AM EDT documented as of this encounter Last Filed Vital Signs Vital Sign Reading Time Taken Comments Blood Pressure 134/84 02/23/2025 8:56 AM EDT Pulse 117 02/23/2025 8:56 AM EDT Temperature 36.9 C (98.5 F) 02/23/2025 8:56 AM EDT Respiratory Rate 20 02/23/2025 8:56 AM EDT Oxygen Saturation 97% 02/23/2025 8:56 AM EDT Inhaled Oxygen Concentration - - Weight 64.3 kg (141 lb 12.8 oz) 02/23/2025 8:56 AM EDT Height 170.2 cm (5' 7 ) 02/23/2025 8:56 AM EDT Body Mass Index 22.21 02/23/2025 8:56 AM EDT documented in this encounter Functional Status * Over the past 2 weeks, how often have you been bothered by any of the following problems? Question Answer Date of Assessment Author Patient Health Questionnaire-2 Score 0 02/23/2025 9:05 AM EDT Heidy Arriaga MA * Little interest or pleasure in doing things Answer Date of Assessment Author Not at all 02/23/2025 9:05 AM EDT Heidy Ashley MA * Feeling down, depressed, or hopeless Answer Date of Assessment Author Not at all 02/23/2025 9:05 AM EDT Heidy Ashley MA * Trouble falling or staying asleep, or sleeping too much Answer Date of Assessment Author Not at all 02/23/2025 9:05 AM EDT Heidy Ashley MA * Feeling tired or having little energy Answer Date of Assessment Author Not at all 02/23/2025 9:05 AM EDT Heidy Ashley MA * Poor appetite or overeating Answer Date of Assessment Author Not at all 02/23/2025 9:05 AM EDT Heidy Ashley MA * Feeling bad about yourself - or that you are a failure or have let yourself or your family down Answer Date of Assessment Author Not at all 02/23/2025 9:05 AM EDT Heidy Ashley MA * Trouble concentrating on things, such as reading the newspaper or watching television Answer Date of Assessment Author Not at all 02/23/2025 9:05 AM EDHeidy Palacios MA * Moving or speaking so slowly that other people could have noticed? Or the opposite - being so fidgety or restless that you have been moving around a lot more than usual. Answer Date of Assessment Author Not at all 02/23/2025 9:05 AM Heidy Groves MA * Thoughts that you would be better off or hurting yourself in some way Answer Date of Assessment Author Not at all 02/23/2025 9:05 AM Heidy Groves MA * Patient Health Questionnaire-9 Score Answer Date of Assessment Author 0 02/23/2025 9:05 AM EDHeidy Palacios MA * Over the last 2 weeks, how often have you been bothered by any of the following problems? Question Answer Date of Assessment Author Feeling nervous, anxious, or on edge 0 02/23/2025 9:06 AM EDHeidy Rose MA Not being able to stop or control worrying 0 02/23/2025 9:06 AM EDT Heidy Arriaga MA Worrying too much about different things 0 02/23/2025 9:06 AM EDHeidy Rose MA Trouble relaxing 0 02/23/2025 9:06 AM EDT Heidy White MA Being so restless that it is hard to sit still 0 02/23/2025 9:06 AM MICHELLET Heidy Arriaga MA Becoming easily annoyed or irritable 0 02/23/2025 9:06 AM MICHELLET Heidy Arriaga MA Feeling afraid as if something awful might happen 0 02/23/2025 9:06 AM EDT Heidy Lea MA FLORENTINO-7 Total Score 0 02/23/2025 9:06 AM Heidy Amezquita MA documented as of this encounter Plan of Treatment Scheduled Orders Name Type Priority Associated Diagnoses Orde r Schedule BI Mammogram Screening Tomosynthesis Bilateral Imaging Routine Encounter for screening mammogram for malignant neoplasm of breast Expected: 02/23/2025, Expires: 04/26/2026 Cologuard colon cancer screening Lab Routine Screening for colon cancer Ordered: 02/23/2025 CBC auto differential Lab Routine Encounter for screening and preventative care Expected: 02/23/2025 (Approximate), Expires: 02/23/2026 Comprehensive Metabolic Panel Lab Routine Encounter for screening and preventative care Expected: 02/23/2025 (Approximate), Expires: 02/23/2026 Hemoglobin A1c Lab Routine Encounter for screening and preventative care Expected: 02/23/2025 (Approximate), Expires: 02/23/2026 HIV-1/2 Antigen and Antibodies, Fourth Generation, with Reflexes Lab Routine Encounter for screening and preventative care Expected: 02/23/2025 (Approximate), Expires: 02/23/2026 Hepatitis C Antibody with Reflex to HCV, RNA, Quantitative, Real-Time PCR Lab Routine Encounter for screening and preventative care Expected: 02/23/2025, Expires: 02/23/2026 Lipid Panel, Standard Lab Routine Encounter for screening and preventative care Expected: 02/23/2025 (Approximate), Expires: 02/23/2026 Vitamin D, 25-Hydroxy, Total, Immunoassay Lab Routine Encounter for screening and preventative care Expected: 02/23/2025 (Approximate), Expires: 02/23/2026 TSH with Reflex to Free T4 Lab Routine Encounter for screening and preventative care Expected: 02/23/2025 (Approximate), Expires: 02/23/2026 ABO Group And RH Type Lab Routine Encounter for screening and preventative care Expected: 02/23/2025 (Approximate), Expires: 02/23/2026 documented as of this encounter Visit Diagnoses Diagnosis Encounter for screening and preventative care- Primary Moderate persistent asthma, unspecified whether complicated Encounter for screening mammogram for malignant neoplasm of breast Screening for colon cancer Special screening for malignant neoplasms, colon documented in this encounter Additional Health Concerns Assessment Noted Time PHQ-9 Depression Total Score: 0 02/24/20 25 9:05 AM EDT documented as of this encounter Care Teams Pie Maker Machine Relationship Specialty Start Date End Date Elvie Cleaning MD [address] [place] [phone] PCP - General Family Medicine 04/24/18 documented as of this encounter
[2025-02-23 11:57] LABS: Hematocrit 39.8 % (37.0-47.0); Hemoglobin 12.5 g/dl (12.0-16.0); Imm Gran Abs Auto 0.04 X10*3/uL (0.00-0.03); Imm Gran Pct Auto 0.3 % (0.0-0.4); Lymphocytes Absolute Auto 2.3 X10*3/uL (1.2-4.9); MANUAL DIFF FLAG SCAN; Mean Corpuscular HGB Conc 31.4 g/dl (31.0-35.0); Mean Corpuscular Hemoglobin 25.6 pg (27.0-33.0); Mean Corpuscular Volume 81.4 fL (80.0-98.0); NRBC Abs Auto 0.000 X10*3/uL (0.0-0.012); NRBC Pct Auto 0.0 /100WBC (0.0-0.2); Platelet Count 508 X10*3/uL (160-400); Red Blood Count 4.89 X10*6/uL (4.20-5.50); SCAN SMEAR FLAG 1; White Blood Count 11.6 X10*3/uL (4.8-10.8)
== END 2025-02-23 10:03 | disposition home or self-care (01) ==
LOC: HO.HHCL 10:02
PROVIDERS: Internal Medicine Pulmonary Disease; PCP Internal Medicine; Visit Provider Internal Medicine
DX: J06.9 Acute upper respiratory infection, unspecified (principal)
CPT/HCPCS: 36415; 85025

== ENCOUNTER 2025-03-19 12:29 | Outpatient (AMB) | payer MEDICAID, SELFPAY ==
--- OUTSIDE RECORDS SUMMARY | 2025-03-19 12:38 | XMS_ITS | Encounter Summary ---
Author Organization [email or web address] Address [address] [facility] 7t [place] [address] Care Team Providers Care Fire Lieutenant Name Role Phone Elvie Cleaning MD Primary Care Provide r Encounter Details Date Type Department Care Team (Latest Contact Info) Description 05/06/2019 Abstract [facility] Dental, Provider, DDS Social History Tobacco [...] Care Team (Late st Contact Info) Description 04/28/2025 10:00 AM EDT Telemedicine [facility] [address] [place] [address] Elvie Cleaning MD [address] [place] [address] documented as of this encounter Visit Diagnoses Not on filedocumented in this encounter Care Teams Fire Lieutenant Relationship Specialty Start Date End Date Elvie Cleaning MD [address] [place] [address] PCP - General Family Medicine 04/24/18 documented as of this encounter
[2025-03-19 13:11] VITALS: BP 122/67; PULSE 117; O2SAT 97; BMI 21.6
--- NOTE | 2025-03-19 13:11 | MHC.OFFVIS ---
Vital Signs 03/19/25 13:11 Height 5 ft 7 in Weight 138 lb BMI 21.6 BP 122/67 Blood Pressure Location Lt brachial Position Sitting Pulse 117 H Pulse Source Pulse Oximeter Pulse Oximetry (%) 97 Oxygen Delivery Method Room Air Intake Visit Reasons: Asthma Program Director Substance Abuse Required: Yes Program Director Substance Abuse Name: Jocelyn Barrientos Travis Allergies apple Allergy (Verified 02/02/25 14:44) Hives HPI HPI Asthma: Details: 54-year-old lady, nonsmoker, followed for underlying severe persistent allergic asthma and environmental allergies.? She continues to use Advair 500 and albuterol MDI with good control of her underlying symptoms.? Patient has been complaining of ongoing chronic bronchitic exacerbation over the last several months with only partial response to several prednisone pulses and several courses of antibiotics including Levaquin. After the last office visit patient had bronchoscopy with bronchoalveolar lavage growing Iris. She was treated with a course of fluconazole with significantly improved, but not complete resolution of her underlying cough. [facility] Social History Household Members: Other Housing: Apartment Do you presently have visiting nurse or other home services: No Alcohol intake: never Second Hand Smoke Exposure: No service: No Current occupational status: unemployed Review of Systems Const Denies daytime sleepiness, Denies excessive sweating, Denies fatigue, Denies fever(s), Denies lethargy, Denies malaise, Denies night sweats, Denies snoring and Denies weight loss Eyes Denies blurry vision and Denies itchy eyes ENT Denies nasal congestion, Denies post nasal drip, Denies sinus pain, Denies sinus pressure and Denies other ( Thrush) Card Denies chest pain, Denies pedal edema, Denies dyspnea, Denies orthopnea and Denies paroxysmal nocturnal dyspnea Resp Denies cough, Denies hemoptysis, Denies excessive phlegm production, Denies dyspnea, Denies snoring and Denies wheezing GI Denies abdominal pain and Denies heartburn Musc Denies myalgias, Denies arthralgias and Denies joint swelling Skin/Breast Denies rash Neuro Denies memory loss and Denies seizure-like activity Psych Denies abnormal sleep pattern, Denies anxiety and Denies memory loss Endo Denies excessive sweating, Denies fatigue and Denies heat intolerance Janak/Lymph Denies easy bruising Aller/Immun Denies itchy eyes, Denies seasonal rhinorrhea and Denies wheezing Physical Exam Vital Signs: Last Vital Signs Pulse 117 H 03/19/25 13:11 BP 122/67 03/19/25 13:11 Pulse Ox 97 03/19/25 13:11 Oxygen Delivery Method Room Air 03/19/25 13:11 BMI result Body Mass Index 21.6 Const General: no acute distress and alert Nutritional Appearance: not obese Orientation/consciousness: Other orientation findings ( oriented) HEENT Head: Yes atraumatic Eyes General: appearance normal, both eyes and all related structures Sclerae: sclerae normal EOM: EOMs intact bilaterally Neck Neck: Yes supple Lymphatic: no lymphadenopathy noted Resp Effort & Inspection: normal respiratory effort and no use of accessory muscles Auscultation: clear to auscultation bilaterally Cardio Rate: regular rate Rhythm: regular rhythm Heart sounds: no gallops, no murmurs and no rubs Skin General skin exam: other ( warm) Extrem General: No clubbing, No cyanosis and No edema Assessment & Plan Assessment & Plan (1) Moderate persistent asthma: Code(s): J45.40 - Moderate persistent asthma, uncomplicated Category: Medical Plan: Well controlled on Advair and albuterol MDI. Continue current regimen. (2) Environmental allergies: Code(s): Z91.09 - Other allergy status, other than to drugs and biological substances Category: Medical Plan: No recent exacerbations. (3) Mucopurulent chronic bronchitis: Code(s): J41.1 - Mucopurulent chronic bronchitis Category: Medical Plan: Status post bronchoscopy with bronchoalveolar lavage growing Iris. Treated with a course of fluconazole with significant improvement, but not a complete resolution her symptoms. Will repeat antifungal course. Medications: New fluconazole 200 mg PO DAILY 14 tabs 0RF azithromycin For 250 mg dose pack: take 500 mg today (day 1), then 250 mg for 4 days (days 2-5) PO 6 tabs 0RF Coding Level of Care Code Est Pt Level 4 (51212) Diagnoses Moderate persistent asthma J45.40 Environmental allergies Z91.09 Mucopurulent chronic bronchitis J41.1
== END 2025-03-19 13:33 | disposition home or self-care (01) ==
LOC: HO.HPS 12:29
PROVIDERS: PCP Internal Medicine; Visit Provider Internal Medicine Pulmonary Disease
DX: J45.40 Moderate persistent asthma, uncomplicated (principal); Z91.09 Other allergy status, other than to drugs and biological substances; J41.1 Mucopurulent chronic bronchitis
CPT/HCPCS: 99214

== ENCOUNTER → 2025-03-19 12:29 | Outpatient (BNVA) | payer MEDICAID, SELFPAY | PROVIDERS: PCP Internal Medicine; Visit Provider Internal Medicine Pulmonary Disease | DX: J45.40 Moderate persistent asthma, uncomplicated (principal); Z91.09 Other allergy status, other than to drugs and biological substances; J41.1 Mucopurulent chronic bronchitis | CPT/HCPCS: 99212 ==

== ENCOUNTER 2025-04-29 08:50 | Outpatient (REF) | payer MEDICAID, SELFPAY ==
--- OUTSIDE RECORDS SUMMARY | 2025-04-28 10:00 | XMS_ITS | Encounter Summary ---
Author Organization [employer] Address [address] [facility] 7t [place] [address] Care Team Providers Care Electrical And Radio Aircraft Mechanic Name Role Phone Elvie Cleaning MD Primary Care Provide r Encounter Details Date Type Department Care Team ([facility] Contact Info) Description 04/28/2025 10:00 AM EDT Telemedicine [facility] [address] [place] [address] [phone] Elvie Cleaning MD [address] [place] [address] Chronic fatigue (Primary Dx); Moderate persistent asthma, unspecified whether complicated Social History Tobacco Use Types Packs/Day Years [...] AM EDT documented as of this encounter Progress Notes * Elvie Hemphill MD - 04/28/2025 10:00 AM EDT SUBJECTIVE: Stephanie Mcrae is a 54 y.o. year old female who presents for Follow up . Acute Concerns: Patient tells me her cough is a little better but she still has been having persistent cough, she is being followed closely by respiratory clinician last appointment was on March 19, 2025 it was reviewed with her results of bronchial lavage it grew Iris and it was prescribed for her fluconazole 200 mg daily for 14 days plus Z-Abiodun Patient tells me she feels extremely tired all the time and wanted to review the labs with her but she was only done a CBC ordered by another provider I let her know that there is no anemia and that I wanted for her to do other set of labs Social History Social History Narrative Not on file Problem List[1] Gastroesophageal reflux disease Moderate persistent asthma Mood disorder (CMS/HCC) Encounter for screening and preventative care Encounter for screening mammogram for malignant neoplasm of breast Seasonal allergies Tachycardia Encounter for Papanicolaou smear of cervix Colon cancer screening Change in mole Anxiety Chronic fatigue Family History[2] Review of Systems Constitutional: Positive for fatigue. Negative for activity change, appetite change, chills, diaphoresis, fever and unexpected weight change. HENT: Negative. Respiratory: Positive for cough and chest tightness. Negative for apnea, choking, shortness of breath, wheezing and stridor. Cardiovascular: Negative. Follow Up: No follow-ups on file. Medications Ordered Prior to Encounter[3] Problem List Items Addressed This Visit Chronic fatigue - Primary I ordered again labs to investigate why she is feeling so tired plan is to follow-up with her in 4 to 6 weeks, she will be called before if significant abnormalities found Relevant Orders CBC auto differential Comprehensive Metabolic Panel Hemoglobin A1c HIV-1/2 Antigen and Antibodies, Fourth Generation, with Reflexes Hepatitis C Antibody with Reflex to HCV, RNA, Quantitative, Real-Time PCR Lipid Panel, Standard Vitamin D, 25-Hydroxy, Total, Immunoassay TSH with Reflex to Free T4 Vitamin B12/Folate, Serum Panel Magnesium Phosphate (As Phosphorus) Moderate persistent asthma Continue with same interventions advised to rinse her mouth after use of inhalers, counseling aboutavoiding triggers I advised not to miss her appointment with respiratory clinician [1] Patient Active Problem List Diagnosis Gastroesophageal reflux disease Moderate persistent asthma Mood disorder ([facility]) Encounter for screening and preventative care Encounter for screening mammogram for malignant neoplasm of breast Seasonal allergies Tachycardia Encounter for Papanicolaou smear of cervix Colon cancer screening Change in mole Anxiety Chronic fatigue [2] No family history on file. [3] Current Outpatient Medications on File Prior to Visit Medication Sig Dispense Refill albuterol (2.5 MG/3ML) 0.083% nebulizer solution Take 3 mL (2.5 mg) by nebulization every 6 (six) hours if needed for wheezing. 90 mL 2 albuterol 108 (90 Base) MCG/ACT inhaler INHALE 2 PUFFS BY MOUTH EVERY 4 TO 6 HOURS NEEDED 18 g 1 azithromycin (Zithromax Z-Abiodun) 250 MG tablet Take 2 tablets once on day 1, then 1 tablet 1x/day for4 days. 6 tablet 0 Blood Pressure kit 1 each 2 times daily. 1 kit 0 cetirizine (ZyrTEC) 10 MG tablet TAKE 1 TABLET BY MOUTH EVERY DAY NEEDED FOR ALLERGIES 90 tablet1 famotidine (Pepcid) 20 MG tablet TAKE 1 TABLET BY MOUTH TWICE DAILY 180 tablet 0 Fluticasone-Salmeterol (Advair Diskus) 500-50 MCG/ACT aerosol powder Inhale. Kamille-Tussin 100 MG/5ML liquid TAKE 10 ML BY MOUTH THREE TIMES DAILY IN THE MORNING, AT NOON, AND ATBEDTIME NEEDED FOR COUGH FOR UP TO 10 DAYS 120 mL 1 No current facility-administered medications on file prior to visit. documented in this encounter Miscellaneous Notes * Assessment & Plan Note - Elvie Hemphill MD - 04/28/2025 10:24 AM EDT Associated Problem(s): Chronic fatigue I ordered again labs to investigate why she is feeling so tired plan is to follow-up with her in 4 to 6 weeks, she will be called before if significant abnormalities found * Assessment & Plan Note - Elvie Hemphill MD - 04/28/2025 10:24 AM EDT Associated Problem(s): Moderate persistent asthma Continue with same interventions advised to rinse her mouth after use of inhalers, counseling aboutavoiding triggers I advised not to miss her appointment with respiratory clinician documented in this encounter Plan of Treatment Scheduled Orders Name Type Priority Associated Diagnoses Orde r Schedule CBC auto differential Lab Routine Chronic fatigue Expected: 04/28/2025 (Approximate), Expires: 04/28/2026 Comprehensive Metabolic Panel Lab Routine Chronic fatigue Expected: 04/28/2025 (Approximate), Expires: 04/28/2026 Hemoglobin A1c Lab Routine Chronic fatigue Expected: 04/28/2025 (Approximate), Expires: 04/28/2026 HIV-1/2 Antigen and Antibodies, Fourth Generation, with Reflexes Lab Routine Chronic fatigue Expected: 04/28/2025 (Approximate), Expires: 04/28/2026 Hepatitis C Antibody with Reflex to HCV, RNA, Quantitative, Real-Time PCR Lab Routine Chronic fatigue Expected: 04/28/2025, Expires: 04/28/2026 Lipid Panel, Standard Lab Routine Chronic fatigue Expected: 04/28/2025 (Approximate), Expires: 04/28/2026 Vitamin D, 25-Hydroxy, Total, Immunoassay Lab Routine Chronic fatigue Expected: 04/28/2025 (Approximate), Expires: 04/28/2026 TSH with Reflex to Free T4 Lab Routine Chronic fatigue Expected: 04/28/2025 (Approximate), Expires: 04/28/2026 Vitamin B12/Folate, Serum Panel Lab Routine Chronic fatigue Expected: 04/28/2025, Expires: 04/28/2026 Magnesium Lab Routine Chronic fatigue Expected: 04/28/2025, Expires: 04/28/2026 Phosphate (As Phosphorus) Lab Routine Chronic fatigue Expected: 04/28/2025, Expires: 04/28/2026 documented as of this encounter Visit Diagnoses Diagnosis Chronic fatigue- Primary Other malaise and fatigue Moderate persistent asthma, unspecified whether complicated documented in this encounter Additional Health Concerns Assessment Noted Time PHQ-9 Depression Total Score: 0 02/24/20 25 9:05 AM EDT documented as of this encounter Care Teams Electrical And Radio Aircraft Mechanic Relationship Specialty Start Date End Date Elvie Cleaning MD [address] [place] [phone] PCP - General Family Medicine 04/24/18 documented as of this encounter
--- NOTE | ~2025-04-29 | MM_ITS ---
EXAMINATION: MM SCREENING DIGITAL BREAST TOMOSYNTHESIS, BILATERAL CLINICAL INFORMATION: Screening. Asymptomatic. COMPARISON: Mammography: Baseline. TECHNIQUE: Digital breast mammography with tomosynthesis is performed in both the craniocaudal and mediolateral oblique views along with computer-aided detection (CAD). FINDINGS: The breasts are heterogeneously dense, which may obscure small masses (ACR BI-RADS breast composition Category c). Right: Circumscribed oval mass upper central breast posterior depth. No suspicious calcifications or other abnormal findings. Left: There are no significant masses, abnormal calcifications, or other abnormalities. MM/MM tomosynthesis screening BI IMPRESSION: Additional imaging is recommended ASSESSMENT: BI-RADS BI-RADS 0 - Incomplete: Needs additional Imaging. RECOMMENDATION: 1. Additional views of the right breast. 2. Targeted ultrasound if warranted after review of the additional views. 3. Radiology department staff will contact the patient for additional imaging. Additional Imaging required This examination should not preclude the clinical evaluation of a suspicious palpable abnormality. This patient's information was entered into a reminder system with a target due date for their next mammogram. Electronically signed by: Dalia Bai DO 05/01/2025 05:56 PM EDT
--- OUTSIDE RECORDS SUMMARY | 2025-04-29 10:16 | XMS_ITS | Encounter Summary ---
Author Organization [employer] Address [address] [facility] 7t [place] [address] Care Team Providers Care Checker Bakery Products Name Role Phone Elvie Cleaning MD Primary Care Provide r Reason for Visit * Reason Comments Med Refill Encounter Details Date Type Department Care Team ([facility] Contact Info) Description 04/29/2025 Refill [facility] [address] [place] [address] Elvie Cleaning MD [address] [place] [address] Seasonal allergies Social History Tobacco Use Types [...] documented as of this encounter Care Teams Checker Bakery Products Relationship Specialty Start Date End Date Elvie Cleaning MD [address] [place] [address] PCP - General Family Medicine 04/24/18 documented as of this encounter
--- OUTSIDE RECORDS SUMMARY | 2025-04-29 10:16 | XMS_ITS | Encounter Summary ---
Author Organization [employer] Address [address] [facility] [address]t [place] [address] Care Team Providers Care Pea Viner Mechanic Name Role Phone Elvie Cleaning MD Primary Care Provide r Encounter Details Date Type Department Care Team (Latest Contact Info) Description 04/27/2025 Travel Social History Tobacco Use Types Packs/Day Years [...] documented as of this encounter Care Teams Pea Viner Mechanic Relationship Specialty Start Date End Date Elvie Cleaning MD [address] [place] [phone] PCP - General Family Medicine 04/24/18 documented as of this encounter
--- OUTSIDE RECORDS SUMMARY | 2025-04-29 10:16 | XMS_ITS | Encounter Summary ---
Author Organization [employer] Address [address] [facility] 7 [place] [address] Care Team Providers Care Qc Analyst Name Role Phone Elvie Cleaning MD Primary Care Provide r Reason for Visit * Reason Onset Date Comments Med Refill 09/16/2024 Encounter Details Date Type Department Care Team ([facility] st Contact Info) Description 09/16/2024 Refill [facility] [address] [place] [address] Elvie Cleaning MD [address] [place] [address] Seasonal allergies Social History Tobacco Use Types [...] documented as of this encounter Care Teams Qc Analyst Relationship Specialty Start Date End Date Elvie Cleaning MD [address] [place] [phone] PCP - General Family Medicine 04/24/18 documented as of this encounter
--- OUTSIDE RECORDS SUMMARY | 2025-04-29 10:16 | XMS_ITS | Encounter Summary ---
Author Organization [employer] Address 75 [facility] 7t [place] [address] Care Team Providers Care Combiner Operator Name Role Phone Elvie Cleaning MD Primary Care Provide r Encounter Details Date Type Department Care Team (Latest Contact Info) Description 05/06/2019 Abstract [facility] CONVERSIONS Dental, Provider, DDS Social History Tobacco [...] on filedocumented in this encounter Care Teams Combiner Operator Relationship Specialty Start Date End Date Elvie Cleaning MD [address] [place] [phone] PCP - General Family Medicine 04/24/18 documented as of this encounter
--- OUTSIDE RECORDS SUMMARY | 2025-04-29 10:16 | XMS_ITS | Encounter Summary ---
Author Organization [employer] Address 75 [facility] 7 [place] [address] Care Team Providers Care Boiling Off Winder Name Role Phone Elvie Cleaning MD Primary Care Provide r Reason for Visit * Reason Onset Date Comments Chart prep 04/27/2025 Encounter Details Date Type Department Care Team ([facility] Contact Info) Description 04/27/2025 Telephone [facility] [address] [place] [address] Elvie Cleaning MD [address] [place] [address] Chart prep Social History Tobacco Use Types Packs/Day Years [...] AM EDT documented as of this encounter Miscellaneous Notes * Telephone Encounter - Maryan Bolanos [place] - 04/27/2025 10:34 AM EDT Chart Prep Labs: not done Images: not done Referrals: closed per protocol Vaccines due: Covid, Flu, PCV20, Tdap, Hep B, and Zoster Screenings: colonoscopy and mammogram Overdue care gaps: SBIRT and Disability screen documented in this encounter Plan of Treatment Not on file documented as of this encounter Visit Diagnoses Not on filedocumented in this encounter Additional Health Concerns Assessment Noted Time PHQ-9 Depression Total Score: 0 02/24/20 25 9:05 AM EDT documented as of this encounter Care Teams Boiling Off Winder Relationship Specialty Start Date End Date Elvie Cleaning MD [address] [place] [phone] PCP - General Family Medicine 04/24/18 documented as of this encounter
--- OUTSIDE RECORDS SUMMARY | 2025-04-29 10:16 | XMS_ITS | Encounter Summary ---
Author Organization [employer] Address 75 [facility] 7t [place] [address] Care Team Providers Care Trestle Mainternance Laborer Name Role Phone Elvie Cleaning MD Primary Care Provide r Encounter Details Date Type Department Care Team (Latest Contact Info) Description 04/28/2025 Travel Social History Tobacco Use Types Packs/Day [...] documented as of this encounter Care Teams Trestle Mainternance Laborer Relationship Specialty Start Date End Date Elvie Cleaning MD [address] [place] [phone] PCP - General Family Medicine 04/24/18 documented as of this encounter
--- OUTSIDE RECORDS SUMMARY | 2025-04-29 10:17 | XMS_ITS | Clinical Summary ---
Author Organization [employer] Address [address] [place] [address] 7t [place] [address] Care Team Providers Care Respiratory Therapy Manager Name Role Phone Elvie Cleaning MD Primary Care Provide r Allergies Active Allergy Reactions Criticality Noted Date Comments Apple Juice Rash Low 02/18/2024 Lucas Rash Low 02/18/2024 Flavoring Agent (Non-Screening) Rash Low 03/2024 Medications albuterol 108 (90 Base) MCG/ACT inhalerIndicati ons:Uncomplicat ed asthma, unspecified asthma severity, unspecified whether persistent INHALE 2 PUFFS BY MOUTH EVERY 4 TO 6 HOURS NEEDED 18 g 1 3 Active Blood Pressure kit 1 each 2 times daily. 1 kit 4 06/09/20 25 Active Fluticasone-Tyler meterol (Advair Diskus) 500-50 MCG/ACT aerosol powder Inhale. Active azithromycin (Zithromax Z-Abiodun) 250 MG tablet Take 2 tablets once on day 1, then 1 tablet 1x/day for 4 days. 6 tablet 4 Active cetirizine (ZyrTEC) 10 MG tabletIndicatio ns:Seasonal allergies TAKE 1 TABLET BY MOUTH EVERY DAY NEEDED FOR ALLERGIES 90 tablet 1 4 Active famotidine (Pepcid) 20 MG tablet TAKE 1 TABLET BY MOUTH TWICE DAILY 180 tablet 5 Active albuterol (2.5 MG/3ML) 0.083% nebulizer solutionIndicat ions:Moderate persistent asthma, unspecified whether complicated Take 3 mL (2.5 mg) by nebulization every 6 (six) hours if needed for wheezing. 90 mL 2 5 Active Kamille-Tussin 100 MG/5ML liquidIndicatio ns:Moderate persistent asthma, unspecified whether complicated TAKE 10 ML BY MOUTH THREE TIMES DAILY IN THE MORNING, AT NOON, AND AT BEDTIME NEEDED FOR COUGH FOR UP TO 10 DAYS 120 mL 1 5 Active Active Problems Problem Noted Date Diagnosed Date Chronic fatigue 04/28/2025 Assessment & Plan (04/28/2025 10:24 AM EDT): I ordered again labs to investigate why she is feeling so tired plan is to follow-up with her in 4 to 6 weeks, she will be called before if significant abnormalities found Colon cancer screening 02/18/2024 Change in mole 02/18/2024 Anxiety 02/18/2024 Assessment & Plan (02/18/2024 5:03 PM EDT): Continue to follow with therapist and psychiatrist Encounter for Papanicolaou smear of cervix 04/06 Assessment & Plan (04/06/2023 11:06 AM EDT): PAP smear an pelvic exam done today Patient will be contacted with results Encounter for screening and preventative care Assessment & Plan (02/23/2025 10:43 AM EDT): See HPI Assessment & Plan (02/18/2024 5:03 PM EDT): [...] reflux disease 01/30/2023 Moderate persistent asthma 01/30/2023 Assessment & Plan (04/28/2025 10:24 AM EDT): Continue with same interventions advised to rinse her mouth after use of inhalers, counseling about avoiding triggers I advised not to miss her appointment with steam boiler fireman Assessment & Plan (02/23/2025 10:43 AM EDT): Patient educated to avoid triggers fix to follow-up with pulmonology has upcoming appointment next month on review of chart pulmonology ordered sputum culture results were reviewed with patient also was prescribed for her Augmentin she started to take the medication I advised to finish the antibiotic regimen, today I decided to add some cough syrup Mood disorder 01/30/2023 Assessment & Plan (02/02/2023 10:05 AM EDT): Continue to follow with therapist and psychiatrist Encounters Date Type Department Care Team Description 04/29/2025 Refill [facility] [address] [place] [phone] Elvie Cleaning MD Seasonal allergies 04/28/2025 10:00 AM EDT Telemedicine [facility] [address] [place] [phone] Elvie Cleaning MD Chronic fatigue (Primary Dx); Moderate persistent asthma, unspecified whether complicated 04/28/2025 Travel 04/27/2025 Travel 04/27/2025 Telephone [facility] [address] [place] [phone] Elvie Cleaning MD Chart prep 03/09/2025 Refill [facility] [address] [place] [phone] Elvie Cleaning MD Moderate persistent asthma, unspecified whether complicated 03/06/2025 Telephone [facility] [address] [place] [phone] Elvie Cleaning MD cologuard outreach 02/23/2025 9:15 AM EDT Office Visit [facility] [address] [place] [phone] Elvie Cleaning MD Encounter for screening and preventative care (Primary Dx); Moderate persistent asthma, unspecified whether complicated; Encounter for screening mammogram for malignant neoplasm of breast; Screening for colon cancer 02/23/2025 Travel 02/20/2025 Telephone [facility] [address] [place] [phone] Elvie Cleaning MD Chart Prep 02/16/2025 Patient Outreach [address] [phone] Ellis Gu Care Coordination (CHW outreach for SDOH PT-1 and food needs-referral completed /) 02/16/2025 Patient Outreach [address] [address] Elvie Cleaning MD Pre-visit Planning (SDOH screening positive and Tobacco screening negative) from Last 3 Months Social History Tobacco [...] is your housing situation today? I have steveleoncio benoit 02/16/[address] you [...] Mass Index 22.21 02/23/2025 8:56 AM EDT Plan of Treatment Health Maintenance Due Date Last Done Comments CT Colonography 1972 Colonoscopy 1972 Colorectal Cancer Screening 1972 FIT DNA/Cologuard 1972 FIT 1972 FOBT 1972 Sigmoidoscopy 1972 Disability Screening 1972 Alcohol/Substance Use Screening 1984 Family Planning (PISQ) 1987 DTaP/Tdap/Td Vaccines (1 - Tdap) 1991 Hepatitis B Vaccines (1 of 3 - 19+ 3-dose series) 1991 Pneumococcal Vaccine: 50+ Years (1 of 2 - PCV) 1991 Mammogram 2012 Zoster Vaccines (1 of 2) 2022 COVID-19 Vaccine (1 - 2023-2 5 season) 2025 Influenza Vaccine (#1) 2025 SDOH Screening 02/16/2026 02/16/2025 Depression Screening 02/23/2026 02/23/2025, 02/23/2025 Tobacco Screening 02/23/2026 02/23/2025 Cervical Cancer Screening 04/06/2028 HPV/Cotest 04/06/2028 04/06/2023, [...] patient's age to complete this topic Meningococcal B Vaccine Aged Out No l onger eligible based on patient's age to complete [...] Procedure Name Priority Date/Time Associated Diagnosis Comments SLIDE REVIEW Routine 02/23/2025 10:08 AM EDT CBC WITH AUTO DIFFERENTIAL Routine 02/23/2025 10:08 AM EDT HEPATITIS C AB W/REFL TO HCV RNA, QN, PCR Routine 05/01/2023 8:45 AM EDT Tachycardia HIV ANTIBODY/ANTIGEN ([place] DPH) Routine 05/01/2023 8:45 AM EDT HPV MRNA E6/E7 REFLEX TO HPV 16, 18/45 Routine 04/06/2023 12:00 AM EDT PAP SMEAR Routine 04/06/2023 from Last 3 Months or Most Recently Relevant to Health Maintenance Results * Slide Review (02/23/2025 10:08 AM EDT) Slide Review VERIFIED [facility] 02/23/2025 10:0 8 AM EDT 02/23/2025 11:38 AM EDT us Generic External Data Provider LAB BLOOD ORDERAB LES Final Result [facility] [address] [place] [phone] * (ABNORMAL) CBC auto differential (02/23/2025 10:08 AM EDT) White Blood Count 11.6(H) 4.8 - 10.8 X10*3/uL [facility] Red Blood Count 4.89 4.20 - 5.50 X10*6/uL [facility] Hemoglobin 12.5 12.0 - 16.0 g/dl [facility] Hematocrit 39.8 37.0 - 47.0 % [facility] Mean Corpuscular Volume 81.4 80.0 - 98.0 fL [facility] Mean Corpuscular Hemoglobin 25.6(L) 27.0 - 33.0 pg [facility] Mean Corpuscular HGB Conc 31.4 31.0 - 35.0 g/dl [facility] Red Cell Distribution Width 13.3 11.0 - 16.0 % [facility] Platelet Count 508(H) 160 - 400 X10*3/uL [facility] Mean Platelet Volume 9.1(L) 9.4 - 12.3 fL [facility] Neutrophils Percent Auto 54.5 45 - 73 % [facility] Imm Gran Pct Auto 0.3 0.0 - 0.4 % [facility] Lymphocytes Percent Auto 19.4(L) 20 - 40 % [facility] Monocytes Percent Auto 7.3 2 - 11 % [facility] Eosinophils Percent Auto 18.1(H) 0 - 4 % [facility] Basophils Percent Auto 0.4 0 - 2 % [facility] NRBC Pct Auto 0.0 0.0 - 0.2 /100WBC [facility] Neutrophils Absolute Auto 6.3 2.0 - 8.3 x10*3/uL [facility] Imm Gran Abs Auto 0.04(H) 0.00 - 0.03 X10*3/uL [facility] Lymphocytes Absolute Auto 2.3 1.2 - 4.9 X10*3/uL [facility] Monocytes Absolute Auto 0.9 0.1 - 1.2 X10*3/uL [facility] Eosinophils Absolute Auto 2.1(H) 0.0 - 0.4 X10*3/uL [facility] Basophils Absolute Auto 0.1 0.0 - 0.2 X10*3/uL [facility] NRBC Abs Auto 0.000 0.0 - 0.012 X10*3/uL [facility] 02/23/2025 10:0 8 AM EDT 02/23/2025 11:38 AM EDT us Generic External Data Provider LAB BLOOD ORDERAB LES Edited Result - Final [facility] [address] [place] [phone] * HIV Ab/Ag ([facility]) (05/01/2023 8:45 AM EDT) HIV AB/AG Nonreactive Nonreactive [facility] Comment:HIV-1 p24 Ag and/or HIV-1/HIV-2 Ab not detected.A test result that is nonreactive does not exclude thepossibility of exposure to or infection with HIV-1 and/orHIV-2. Nonreactive results in this assay for individualswith prior exposure to HIV-1 and/or HIV-2 may be due toantigen and antibody levels that are below the limit ofdetection of this assay.The [email or web address] HIV Ag/Ab Combo assay result andsupplemental assay results should be interpreted inconjunction with the patient's clinical presentation,history and other laboratory results. If the results areinconsistent with clinical evidence, additional testing issuggested to confirm the result. 05/01/2023 8:45 AM EDT 05/01/2023 11:34 AM EDT Elvie Hemphill MD LAB BLOOD ORDERABLES Final Result Performing Organization Address [facility] Co de Phone Number [facility] [address] [place] [phone] * Hepatitis C Antibody with Reflex to HCV, RNA, Quantitative, Real-Time PCR (05/01/2023 8:45 AM EDT) Hepatitis C Antibody Nonreactive Nonreactive [facility] Comment:Antibodies to HCV no t detected; does not exclude early acuteHCV infection. Blood Venous blood specimen / Unknown 05/01/2023 8:45 AM EDT 05/01/2023 11:34 AM EDT us Elvie Hemphill MD LAB BLOOD ORDERABLES Final Result Performing Organization Address [facility] Co de Phone Number [facility] [address] [place] [phone] * HPV mRNA E6/E7 w/Reflex to HPV Genotypes 16, 18/45 (04/06/2023 12:00 AM EDT) HPV nRNA E6/E7 Not Detected Not Detected [facility] Comment:Methodology: Transcr iption-Mediated AmplificationThis assay detects E6/E7 viral messenger RNA (mRNA) from 14high-risk HPV types (16,18,31,33,35,39,45,51,52,56,58,59,66,68).Cervical sources are required for HPV testing.If a vaginal source from a patient who has had atotal hysterectomy with removal of cervix wassubmitted, please contact the testing laboratoryfor alternative testing options.For additional information, please refer tohttp://education.TUBE/faq/HFQ719q9(This link if provided for information/educational purposes only.)THIS TEST WAS PERFORMED AT:[employer] [place] [phone] SWARTZ MD HPV mRNA E6/E7 TNP [facility] HPV 16 RNA TNP [facility] HPV 18/45 RNA TNP [facility] 04/06/2023 04/09/2023 1:5 0 PM EDT us Elvie Hemphill MD LAB CYTOLOGY ORDERABL ES Final Result [facility] [address] [place] [phone] * Pap Smear (04/06/2023) 04/06/2023 04/09/2023 1:5 0 PM EDT Narrative [facility] - 04/21/2023 2:15 PM EDT ----- ------- Name: Stephanie Mcrae Age/Sex: 52/F : 1970 Unit#: [id number] Attend Dr: Elvie Cleaning MD Re04/06/23 Status: DEP REF Location: HO.HHCLNP Disch: ----- ------- SPEC : [id number] RECD: 04/09/23-1349 STATUS: KIRT MENDEZ NUM: [id number] JUSTICE: 04/06/23- SUBM DR: Elvie Cleaning MD ENTERED: 04/10/23 SP TYPE: Pap Smr OTHR DR: ORDERED: Pap Smear Interpretation Satisfactory for evaluation. Negative for intraepithelial lesion or malignancy. HPV mRNA E6/E7: NOT DETECTED This assay detects E6/E7 viral messenger RNA (mRNA) from 14 high-risk HPV types (16, 18, 31, 33, 35, 39, 45, 51, 52, 56, 58, 59, 66, 68) HPV testing performed by [employer], [place], [place]. See reference laboratory portion of the EMR for entire report. Clinical Information LMP:Unknown date Previous PAP test:Unknown date/findings Material Received ThinPrep-Vaginal/Cervical ----- ------- Signed (signature on file) Isabela A Briana 04/21/23 1415 ----- ------- END OF REPORT us Elvie Hemphill MD LAB CYTOLOGY ORDERABL ES Final Result [facility] [address] [place] [phone] from Last 3 Months or Most Recently Relevant to Health Maintenance Insurance [facility] C3 Care Teams Respiratory Therapy Manager Relationship Specialty Start Date End Date Elvie Cleaning MD [address] [place] [address] PCP - General Family Medicine 04/24/18
== END 2025-04-29 08:51 | disposition home or self-care (01) ==
LOC: HO.MAMMO 08:50
PROVIDERS: PCP Internal Medicine; Visit Provider Internal Medicine
DX: Z12.31 Encounter for screening mammogram for malignant neoplasm of breast (principal)
CPT/HCPCS: 77063; 77067

== ENCOUNTER → 2025-04-29 09:15 | Outpatient (BNV) | payer MEDICAID, SELFPAY | PROVIDERS: PCP Internal Medicine; Visit Provider Internal Medicine | DX: Z12.31 Encounter for screening mammogram for malignant neoplasm of breast (principal) | CPT/HCPCS: 77063; 77067 ==

== ENCOUNTER 2025-04-30 08:28 | Outpatient (REF) | payer MEDICAID, SELFPAY ==
[2025-04-30 12:00] LABS: Hematocrit 37.1 % (37.0-47.0); Hemoglobin 11.2 g/dl (12.0-16.0); Imm Gran Abs Auto 0.06 X10*3/uL (0.00-0.03); Imm Gran Pct Auto 0.6 % (0.0-0.4); Lymphocytes Absolute Auto 2.0 X10*3/uL (1.2-4.9); MANUAL DIFF FLAG SCAN; Mean Corpuscular HGB Conc 30.2 g/dl (31.0-35.0); Mean Corpuscular Hemoglobin 23.6 pg (27.0-33.0); Mean Corpuscular Volume 78.1 fL (80.0-98.0); NRBC Abs Auto 0.000 X10*3/uL (0.0-0.012); NRBC Pct Auto 0.0 /100WBC (0.0-0.2); Platelet Count 615 X10*3/uL (160-400); Red Blood Count 4.75 X10*6/uL (4.20-5.50); SCAN SMEAR FLAG 1; White Blood Count 10.6 X10*3/uL (4.8-10.8)
[2025-04-30 12:15] LABS: Hemoglobin A1C 120.2517 umol/L; Total Hemoglobin (HGBA1C) 2941.3278 umol/L
[2025-04-30 12:26] LABS: HIV Num 1 0.04 S/CO (0.00-0.99); ~HepC Num1 0.11 S/CO (0.00-0.79); ~Hepatitis C Antibody Nonreactive (Nonreactive)
[2025-04-30 12:28] LABS: Alanine Aminotransferase 8 U/L (0-31); Albumin Level 3.5 g/dL (3.5-5.0); Alkaline Phosphatase 59 U/L (39-117); Anion Gap 12 (12-20); Aspartate Amino Transferase 17 U/L (5-31); Blood Urea Nitrogen 10 mg/dL (9-16); Calcium 9.2 mg/dL (8.4-10.2); Carbon Dioxide 28 mmol/L (22-29); Chloride 105 mmol/L (96-108); Cholesterol 198 mg/dL (<200); Estimated Glomerular Filt Rate > 60; HDL Cholesterol 40 mg/dL (>40); Magnesium 2.1 mg/dL (1.6-2.6); Potassium 4.3 mmol/L (3.3-5.1); Sodium 141 mmol/L (135-145); Total Protein 7.5 g/dL (6.5-8.0); Triglycerides 66 mg/dL (<150)
[2025-04-30 12:49] LABS: Folate 11.0 ng/mL (> or = 4.0); Vitamin B12 446 pg/mL (200-900)
== END 2025-04-30 08:29 | disposition home or self-care (01) ==
LOC: HO.HHCL 08:28
PROVIDERS: PCP Internal Medicine; Visit Provider Internal Medicine
DX: R53.82 Chronic fatigue, unspecified (principal)
CPT/HCPCS: 36415; 80053; 80061; 82306; 82607; 82746; 83036; 83735; 84100; 84443; 85025; 86803; 87389

== ENCOUNTER 2025-06-05 10:37 | Outpatient (REF) | payer MEDICAID, SELFPAY ==
--- NOTE | ~2025-06-05 | MM_ITS ---
EXAMINATION: MM DIAGNOSTIC DIGITAL BREAST TOMOSYNTHESIS, RIGHT Right limited ultrasound. CLINICAL INFORMATION: Call back from screening for focal asymmetry in the upper central breast posterior depth. COMPARISON: Mammography: Prior imaging on PACS TECHNIQUE: Digital breast tomosynthesis is performed in both the craniocaudal and mediolateral oblique views along with computer-aided detection (CAD). Synthesized 2D images are generated from the tomosynthesis. FINDINGS: The breasts are heterogeneously dense, which may obscure small masses. Circumscribed oval mass in the upper central breast middle to posterior depth persists on additional imaging projections. No suspicious calcifications or other abnormal findings. Targeted color Doppler ultrasound scanning in the right upper central breast 10 2:00 demonstrates a hypoechoic oval circumscribed solid mass versus complicated cyst at 12:00 5 cm from nipple measuring 7 x 4 x 6 mm which correlates with the circumscribed oval mass on mammography. MM/MM tomosynthesis added views R IMPRESSION: Oval circumscribed hypoechoic solid mass versus complicated cyst at 12:00 5 cm from the nipple on ultrasound. Recommend 6 month follow-up ultrasound for further evaluation of stability. ASSESSMENT: BI-RADS Category 3: Probably benign RECOMMENDATION: 6 Month F/U Results were provided to the patient at time of visit by the technologist. This patient's information was entered into a reminder system with a target due date for their next mammogram. Electronically signed by: Dalia Bai DO 06/05/2025 11:47 AM EDShawna
--- OUTSIDE RECORDS SUMMARY | 2025-06-05 12:12 | XMS_ITS | Encounter Summary ---
Author Organization [employer] Address 75 [facility] 7t [place] [address] Care Team Providers Care Electrocardiograph Repairer Name Role Phone Elvie Cleaning MD Primary Care Provide r Encounter Details Date Type Department Care Team ([facility] Contact Info) Description 06/05/2025 Orders Only [facility] [address] [place] [address] Elvie Cleaning MD [address] [place] [address] Social History Tobacco Use Types Packs/Day Years [...] on file documented as of this encounter Procedures Procedure Name Priority Date/Time Associated Diagnosis Comments BI MAMMOGRAM DIAGNOSTIC TOMOSYNTHESIS ADDED VIEW RIGHT Routine 06/05/2025 10:51 AM EDT documented in this encounter Results * BI Mammogram Diagnostic Tomosynthesis added right (06/05/2025 10:51 AM EDT) Anatomical Region Laterality Modality Breast Left Mammography 06/05/2025 10:5 1 AM EDT Narrative 06/05/2025 11:50 AM EDT [facility] [address] [place] [address] Mammography Report Signed Patient: Stephanie Mcrae MR#: [id number] : 1970 Acct:[id number] Age/Sex: 55 / F ADM Date: 06/05/25 Loc: HO.MAMMO Attending Dr: Elvie Hemphill MD Ordering Physician: Elvie Cleaning MD Results: 3Probably Benign Date of Service: 06/05/25 Follow Up: 6 Month F/U Procedure(s): MM tomosynthesis added views R Accession Number(s): [id number] cc: Elvie Cleaning MD Reason For Exam: RT BR AV US FOR MASS EXAMINATION: MM DIAGNOSTIC DIGITAL BREAST TOMOSYNTHESIS, RIGHT Right limited ultrasound. CLINICAL INFORMATION: Call back from screening for focal asymmetry in the upper central breast posterior depth. COMPARISON: Mammography: Prior imaging on PACS TECHNIQUE: Digital breast tomosynthesis is performed in both the craniocaudal and mediolateral oblique views along with computer-aided detection (CAD). Synthesized 2D images are generated from the tomosynthesis. FINDINGS: The breasts are heterogeneously dense, which may obscure small masses. Circumscribed oval mass in the upper central breast middle to posterior depth persists on additional imaging projections. No suspicious calcifications or other abnormal findings. Targeted color Doppler ultrasound scanning in the right upper central breast 10 2:00 demonstrates a hypoechoic oval circumscribed solid mass versus complicated cyst at 12:00 5 cm from nipple measuring 7 x 4 x 6 mm which correlates with the circumscribed oval mass on mammography. MM/MM tomosynthesis added views R IMPRESSION: Oval circumscribed hypoechoic solid mass versus complicated cyst at 12:00 5 cm from the nipple on ultrasound. Recommend 6 month follow-up ultrasound for further evaluation of stability. ASSESSMENT: BI-RADS Category 3: Probably benign RECOMMENDATION: 6 Month F/U Results were provided to the patient at time of visit by the technologist. This patient's information was entered into a reminder system with a target due date for their next mammogram. Electronically signed by: Dalia Bai DO 06/05/2025 11:47 AM EDT Dictated By: Dalia Bai DO Signed By: <Electronically signed by Dalia Bai DO in OV> 06/05/25 1147 DD/ 1051 TD/TT: 06/05/25 1103 Optical Glass Inspector: Procedure Note Donotuseinterpreter, Image - 06/05/2025 [facility] [address] [place] [address] Mammography Report Signed Patient: Stephanie McraeMR#: [id number] : 1970Acct:[id number] Age/Sex: 55 / FADM Date: 06/05/25 Loc: MAMMO Attending Dr: Elvie Hemphill MD Ordering Physician: Elvie Cleaning MDResults: 3Probably Benign Date of Service: 06/05/25Follow Up: 6 Month F/U Procedure(s): MM tomosynthesis added views R Accession Number(s): [id number] cc: Elvie Cleaning MD Reason For Exam: RT BR AV US FOR MASS EXAMINATION: MM DIAGNOSTIC DIGITAL BREAST TOMOSYNTHESIS, RIGHT Right limited ultrasound. CLINICAL INFORMATION: Call back from screening for focal asymmetry in the upper central breast posterior depth. COMPARISON: Mammography: Prior imaging on PACS TECHNIQUE: Digital breast tomosynthesis is performed in both the craniocaudal and mediolateral oblique views along with computer-aided detection (CAD). Synthesized 2D images are generated from the tomosynthesis. FINDINGS: The breasts are heterogeneously dense, which may obscure small masses. Circumscribed oval mass in the upper central breast middle to posterior depth persists on additional imaging projections. No suspicious calcifications or other abnormal findings. Targeted color Doppler ultrasound scanning in the right upper central breast 10 2:00 demonstrates a hypoechoic oval circumscribed solid mass versus complicated cyst at 12:00 5 cm from nipple measuring 7 x 4 x 6 mm which correlates with the circumscribed oval mass on mammography. MM/MM tomosynthesis added views R IMPRESSION: Oval circumscribed hypoechoic solid mass versus complicated cyst at 12:00 5 cm from the nipple on ultrasound. Recommend 6 month follow-up ultrasound for further evaluation of stability. ASSESSMENT: BI-RADS Category 3: Probably benign RECOMMENDATION: 6 Month F/U Results were provided to the patient at time of visit by the technologist. This patient's information was entered into a reminder system with a target due date for their next mammogram. Electronically signed by: Dalia Bai DO 06/05/2025 11:47 AM EDT Dictated By: Dalia Bai DO Signed By: <Electronically signed by Dalia Bai DO in OV> 06/05/25 1147 DD/ 1051 TD/TT: 06/05/25 1103 Optical Glass Inspector: us Elvie Hemphill MD IMG BI PROCEDURES Fin al Result documented in this encounter Visit Diagnoses Not on filedocumented in this encounter Additional Health Concerns Assessment Noted Time PHQ-9 Depression Total Score: 0 02/24/20 25 9:05 AM EDT documented as of this encounter Care Teams Electrocardiograph Repairer Relationship Specialty Start Date End Date Elvie Cleaning MD [address] [place] [address] PCP - General Family Medicine 04/24/18 documented as of this encounter
--- OUTSIDE RECORDS SUMMARY | 2025-06-05 12:12 | XMS_ITS | Encounter Summary ---
Author Organization [employer] Address [address] [facility] [address] [place] [address] Care Team Providers Care Shoe Clerk Name Role Phone Elvie Cleaning MD Primary Care Provide r Encounter Details Date Type Department Care Team (Latest Contact Info) Description 05/11/2025 Results Follow-Up [facility] [address] [place] [id number] Elvie Cleaning MD [address] [place] [address] CBC auto differential, Comprehensive Metabolic Panel, Hemoglobin A1c, Additional followed-up results: 8 Social History Tobacco Use Types Packs/Day Years [...] documented as of this encounter Care Teams Shoe Clerk Relationship Specialty Start Date End Date Elvie Cleaning MD [address] [place] [address] PCP - General Family Medicine 04/24/18 documented as of this encounter
--- OUTSIDE RECORDS SUMMARY | 2025-06-05 12:12 | XMS_ITS | Encounter Summary ---
Author Organization [employer] Address [address] [facility] [address] [place] [address] Care Team Providers Care Classics Professor Name Role Phone Elvie Cleaning MD Primary Care Provide r Encounter Details Date Type Department Care Team (Latest Contact Info) Description 05/06/2019 Abstract [facility] CONVERSIONS Dental, Provider, DDS Social History Tobacco [...] on filedocumented in this encounter Care Teams Classics Professor Relationship Specialty Start Date End Date Elvie Cleaning MD [address] [place] [id number] PCP - General Family Medicine 04/24/18 documented as of this encounter
--- OUTSIDE RECORDS SUMMARY | 2025-06-05 12:12 | XMS_ITS | Encounter Summary ---
Author Organization [employer] Address [address] [facility] [address] [place] [address] Care Team Providers Care Humidifier Operator Name Role Phone Elvie Cleaning MD Primary Care Provide r Reason for Visit * Reason Onset Date Comments Med Refill 09/16/2024 Encounter Details Date Type Department Care Team ([facility] st Contact Info) Description 09/16/2024 Refill [facility] [address] [place] [address] Elvie Cleaning MD [address] [place] [address] Seasonal allergies Social History Tobacco Use Types [...] documented as of this encounter Care Teams Humidifier Operator Relationship Specialty Start Date End Date Elvie Cleaning MD [address] [place] [phone] PCP - General Family Medicine 04/24/18 documented as of this encounter
--- OUTSIDE RECORDS SUMMARY | 2025-06-05 12:12 | XMS_ITS | Clinical Summary ---
Author Organization [employer] Address [address] [place] [address] [address] [place] [address] Care Team Providers Care Survey Chief Name Role Phone Elvie Cleaning MD Primary [...] for 4 days. 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 Assessment & Plan (02/23/2025 10:43 AM EDT): [...] Encounters Date Type Department Care Team Description 06/05/2025 Orders Only [facility] [address] [facility] [place] [address] Elvie Cleaning MD 05/11/2025 Results Follow-Up [facility] [place] [address] Elvie Cleaning MD CBC auto differential, Comprehensive Metabolic Panel, Hemoglobin A1c, Additional followed-up results: 8 04/29/2025 Refill [facility] [address] [facility] [place] [address] Elvie Cleaning MD Seasonal allergies 04/28/2025 10:00 AM EDT Telemedicine [facility] [address] [facility] [place] [address] Elvie Cleaning MD Chronic fatigue (Primary Dx); Moderate persistent asthma, unspecified whether complicated 04/28/2025 Travel 04/27/2025 Travel 04/27/2025 Telephone [facility] [address] [facility] [place] [address] Elvie Cleaning MD Chart prep 03/09/2025 Refill [facility] [address] [facility] [place] [address] Elvie Cleaning MD Moderate persistent asthma, unspecified whether complicated 03/06/2025 Telephone [facility] [address] [place] [address] Elvie Cleaning MD [facility] 3 Months Social History Tobacco [...] Disability Screening 1972 Alcohol/Substance Use Screening 1984 DTaP/Tdap/Td Vaccines (1 - Tdap) 1991 Hepatitis B Vaccines (1 of 3 - 19+ 3-dose series) 1991 Pneumococcal Vaccine: 50+ Years (1 of 2 - PCV) 1991 Zoster Vaccines (1 of 2) 2022 COVID-19 Vaccine (1 - 2023-2 5 season) 2025 Influenza Vaccine (#1) 2025 SDOH Screening 02/16/2026 02/16/2025 Depression Screening 02/23/2026 02/23/2025, 02/23/2025 Tobacco Screening 02/23/2026 02/23/2025 Diabetes: Hemoglobin A1C 04/30/2026 025, 05/01/2023 Mammogram 04/29/2027 04/29/2025 Cervical Cancer Screening 04/06/2028 HPV/Cotest 04/06/2028 04/06/2023, 02/26/2019 Pap Smear 04/06/2028 04/06/2023 RSV Patients and Patients Aged 60 years or older (1 - 1-dose 75+ series) 2047 HIV Screening Completed 04/30/2025, 05/01/2023 Hepatitis C Screening Completed 04/30/2025 , 05/01/2023 HIB Vaccines Aged Out No longer [...] VIEW RIGHT Routine 06/05/2025 10:51 AM EDT SLIDE REVIEW Routine 04/30/2025 8:46 AM EDT PHOSPHATE ( PHOSPHORUS) Routine 04/30/2025 8:46 AM EDT Chronic fatigue MAGNESIUM Routine 04/30/2025 8:46 AM EDT Chronic fatigue VITAMIN B12/FOLATE, SERUM PANEL Routine 04/30/2025 8:46 AM EDT Chronic fatigue TSH W/REFLEX TO FT4 Routine 04/30/2025 8 :46 AM EDT Chronic fatigue VITAMIN D,25-OH,TOTAL,IA Routine 04/30/2025 8:46 AM EDT Chronic fatigue LIPID PANEL, STANDARD Routine 04/30/2025 8:46 AM EDT Chronic fatigue HEPATITIS C AB W/REFL TO HCV RNA, QN, PCR Routine 04/30/2025 8:46 AM EDT Chronic fatigue HIV 1/2 ANTIGEN/ANTIBODY, FOURTH GENERATION W/RFL Routine 04/30/2025 8:46 AM EDT Chronic fatigue HEMOGLOBIN A1C Routine 04/30/2025 8:46 AM EDT Chronic fatigue COMPREHENSIVE METABOLIC PANEL Routine 04/30/2025 8:46 AM EDT Chronic fatigue CBC WITH AUTO DIFFERENTIAL Routine 04/30/2025 8:46 AM EDT Chronic fatigue BI MAMMOGRAM SCREENING TOMOSYNTHESIS BILATERAL Routine 04/29/2025 8:55 AM EDT Encounter for screening mammogram for malignant neoplasm of breast HPV MRNA E6/E7 REFLEX TO HPV 16, 18/45 Routine 04/06/2023 12:00 AM EDT PAP SMEAR Routine 04/06/2023 from Last 3 Months or Most Recently Relevant to Health Maintenance Results * BI Mammogram Diagnostic Tomosynthesis added right (06/05/2025 10:51 AM EDT) Anatomical Region Laterality Modality Breast Left Mammography 06/05/2025 10:5 1 AM EDT Narrative 06/05/2025 11:50 AM EDT [facility] [address] [place] [address] Mammography Report Signed Patient: Stephanie Mcrae MR#: [id number] 250 : 1970 Acct:[id number] Age/Sex: 55 / F ADM Date: 06/05/25 Loc: HO.MAMMO Attending Dr: Elvie Hemphill MD Ordering Physician: Elvie Cleaning MD Results: 3Probably Benign Date of Service: 06/05/25 Follow Up: 6 Month F/U Procedure(s): MM tomosynthesis added views R Accession Number(s): [id number] cc: Elvie Cleaning MD Reason For Exam: [...] 06/05/25 1147 DD/ 1051 TD/TT: 06/05/25 1103 Lapping Machine Set Up Operator: Procedure Note Donotuseinterpreter, Image - 06/05/2025 [facility] [address] [place] [address] Dr. [place], [place] [address] Mammography Report Signed Patient: Stephanie McraeMR#: [id number] 250 : 1970Acct:[id number] Age/Sex: 55 / FADM Date: 06/05/25 Loc: HO.MAMMO Attending Dr: Elvie Hemphill MD Ordering Physician: Elvie Cleaning MDResults: 3Probably Benign Date of Service: 06/05/25Follow Up: 6 Month F/U Procedure(s): MM tomosynthesis added views R Accession Number(s): [id number] cc: Elvie Cleaning MD Reason For Exam: [...] 06/05/25 1147 DD/ 1051 TD/TT: 06/05/25 1103 Lapping Machine Set Up Operator: us Elvie Hemphill MD IMG BI PROCEDURES Fin al Result * Slide Review (04/30/2025 8:46 AM EDT) Slide Review VERIFIED [facility] 04/30/2025 8:46 AM EDT 04/30/2025 11:49 AM EDT us Elvie Hemphill MD LAB BLOOD ORDERABLES Final Result [facility] [address] [place] [phone] * Vitamin D, 25-Hydroxy, Total, Immunoassay (04/30/2025 8:46 AM EDT) Vitamin D 25-OH Total 53.7 >30 ng/mL [facility] Comment: Health Based Reference Values*< 20 ng/mL Clpkbrckb17-02 ng/mL Insufficient> 30 ng/mL Sufficient*Sherlyn RAIN. N Engl J Med. 2007;357:266-280There is no well-established upper level of normal vitamin Dlevels. Some laboratories use 50 ng/mL as an upper limit ofnormal. However, toxicity is patient-dependent and may occurat any level. Careful correlation with the patient'spresentation is necessary and, if there is concern forvitamin D toxicity, treatment should be consideredirrespective of the serum level.Care must be taken in interpreting Vitamin D results fromdifferent laboratories and methodologies. Published datademonstrated that results from patients undergoinghemodialysis may show a negative bias when tested withvarious automated 25-OH vitamin D assays when compared toLC-MS/MS.When testing samples from patients whose predominant form ofVitamin D is Vitamin D2, such as patients receiving VitaminD2 supplementation, results that are subtherapeutic shouldbe confirmed with another method such as LC-MS/MS. Blood Venous blood specimen / Unknown 04/30/2025 8:46 AM EDT 04/30/2025 11:44 AM EDT Elvie Hemphill MD LAB BLOOD ORDERABLES Final Result [facility] [address] [place] [phone] [phone] * Vitamin B12/Folate, Serum Panel (04/30/2025 8:46 AM EDT) [facility] Vitamin B12 446 200 - 900 pg/mL [facility] Comment:NORMAL 200-900 PG/ML INDETERMINATE 160-199 PG/ML DEFICIENT < 160 PG/ML Folate 11.0 > or = 4.0 ng/mL [facility] Comment:Reference Values:> o r = 4.0 ng/mL< 4.0 ng/mL suggests folate deficiency Methotrexate, aminopterin and folinic acid(leucovorin) are chemotherapeutic agents whose molecularstructures are similar to folate; therefore, the Architectfolate assay cannot be used for patients using these drugs. Blood Venous blood specimen / Unknown 04/30/2025 8:46 AM EDT 04/30/2025 11:44 AM EDT us Elvie Hemphill MD LAB BLOOD ORDERABLES Final Result Performing Organization Address [facility] Co de Phone Number [facility] [address] [place] [phone] * TSH with Reflex to Free T4 (04/30/2025 8:46 AM EDT) [facility] TSH reflex Free T4 1.19 0.32 - 4.0 uIU/mL [facility] Blood Venous blood specimen / Unknown 04/30/2025 8:46 AM EDT 04/30/2025 11:44 AM EDT us Elvie Hemphill MD LAB BLOOD ORDERABLES Final Result Performing Organization Address [facility] Co de Phone Number [facility] [address] [place] [phone] * (ABNORMAL) CBC auto differential (04/30/2025 8:46 AM EDT) White Blood Count 10.6 4.8 - 10.8 X10*3/uL [facility] Red Blood Count 4.75 4.20 - 5.50 X10*6/uL [facility] Hemoglobin 11.2(L) 12.0 - 16.0 g/dl [facility] Hematocrit 37.1 37.0 - 47.0 % [facility] Mean Corpuscular Volume 78.1(L) 80.0 - 98.0 fL [facility] Mean Corpuscular Hemoglobin 23.6(L) 27.0 - 33.0 pg [facility] Mean Corpuscular HGB Conc 30.2(L) 31.0 - 35.0 g/dl [facility] Red Cell Distribution Width 15.5 11.0 - 16.0 % [facility] Platelet Count 615(H) 160 - 400 X10*3/uL [facility] Mean Platelet Volume 9.1(L) 9.4 - 12.3 fL [facility] Neutrophils Percent Auto 54.8 45 - 73 % [facility] Imm Gran Pct Auto 0.6(H) 0.0 - 0.4 % [facility] Lymphocytes Percent Auto 18.6(L) 20 - 40 % [facility] Monocytes Percent Auto 5.7 2 - 11 % [facility] Eosinophils Percent Auto 19.7(H) 0 - 4 % [facility] Basophils Percent Auto 0.6 0 - 2 % [facility] NRBC Pct Auto 0.0 0.0 - 0.2 /100WBC [facility] Neutrophils Absolute Auto 5.8 2.0 - 8.3 x10*3/uL [facility] Imm Gran Abs Auto 0.06(H) 0.00 - 0.03 X10*3/uL [facility] Lymphocytes Absolute Auto 2.0 1.2 - 4.9 X10*3/uL [facility] Monocytes Absolute Auto 0.6 0.1 - 1.2 X10*3/uL [facility] Eosinophils Absolute Auto 2.1(H) 0.0 - 0.4 X10*3/uL [facility] Basophils Absolute Auto 0.1 0.0 - 0.2 X10*3/uL [facility] NRBC Abs Auto 0.000 0.0 - 0.012 X10*3/uL [facility] Blood Venous blood specimen / Unknown 04/30/2025 8:46 AM EDT 04/30/2025 11:49 AM EDT Elvie Hemphill MD LAB BLOOD ORDERABLES Edited Result - Final Performing Organization Address [facility]/ZIP Co de Phone Number [facility] [address] [place] [phone] * Hepatitis C Antibody with Reflex to HCV, RNA, Quantitative, Real-Time PCR (04/30/2025 8:46 AM EDT) Hepatitis C Antibody Nonreactive Nonreactive [facility] Comment:Antibodies to HCV no t detected; does not exclude early acuteHCV infection. Blood Venous blood specimen / Unknown 04/30/2025 8:46 AM EDT 04/30/2025 11:39 AM EDT us Elvie Hemphill MD LAB BLOOD ORDERABLES Final Result Performing Organization Address [facility] Co de Phone Number [facility] [address] [place] [phone] * HIV-1/2 Antigen and Antibodies, Fourth Generation, with Reflexes (04/30/2025 8:46 AM EDT) HIV AB/AG Nonreactive Nonreactive [facility] Comment:HIV-1 p24 Ag and/or HIV-1/HIV-2 Ab not detected.A test result that is nonreactive does not exclude thepossibility of exposure to or infection with HIV-1 and/orHIV-2. Nonreactive results in this assay for individualswith prior exposure to HIV-1 and/or HIV-2 may be due toantigen and antibody levels that are below the limit ofdetection of this assay.The [employer] HIV Ag/Ab Combo assay result andsupplemental assay results should be interpreted inconjunction with the patient's clinical presentation,history and other laboratory results. If the results areinconsistent with clinical evidence, additional testing issuggested to confirm the result. Blood Venous blood specimen / Unknown 04/30/2025 8:46 AM EDT 04/30/2025 11:39 AM EDT Elvie Hemphill MD LAB BLOOD ORDERABLES Final Result Performing Organization Address [facility] Co de Phone Number [facility] [address] [place] [phone] * Phosphate (As Phosphorus) (04/30/2025 8:46 AM EDT) Phosphorus 3.4 2.7 - 4.5 mg/dL [facility] Blood Venous blood specimen / Unknown 04/30/2025 8:46 AM EDT 04/30/2025 11:44 AM EDT Elvie Hemphill MD LAB BLOOD ORDERABLES Final Result Performing Organization Address [facility] Co de Phone Number [facility] [address] [place] [phone] * Magnesium (04/30/2025 8:46 AM EDT) Magnesium 2.1 1.6 - 2.6 mg/dL [facility] Blood Venous blood specimen / Unknown 04/30/2025 8:46 AM EDT 04/30/2025 11:44 AM EDT Elvie Hemphill MD LAB BLOOD ORDERABLES Final Result Performing Organization Address [facility] Co de Phone Number [facility] [address] [place] [phone] * Hemoglobin A1c (04/30/2025 8:46 AM EDT) Hemoglobin A1c 5.9 <6.0 % [facility] Comment:Hemoglobin A1C Refer ence Range Adults: 4.8 - 6.0 % Non diabetic: < 6.0 % Goal: < 7.0 %Additional Action Suggested: > 8.0 %Note: Hemoglobin A1c results are invalid for patients with abnormal amounts of HbF. Blood transfusions may impact the HbA1c concentration in the patient sample. Estimated Average Glucose 123 mg/dL [facility] Comment:eAG = Estimated ave rage glucose which is %A1C expressed asaverage glucose, using the formula of the K1D-VmeeckaDrwwomo Glucose study (ADAG), Diabetes Care, Vol.31,#8,Mar. 2007 Blood Venous blood specimen / Unknown 04/30/2025 8:46 AM EDT 04/30/2025 11:49 AM EDT Elvie Hemphill MD LAB BLOOD ORDERABLES Final Result [facility] [address] [place] [phone] * (ABNORMAL) Lipid Panel, Standard (04/30/2025 8:46 AM EDT) Triglycerides 66 <150 mg/dL [facility] Comment:Desirable Triglyceri de: less than 150 mg/dLBorderline High Triglyceride 150-199 mg/dLHigh Triglyceride: 200-499 mg/dLVery High Triglyceride: greater than or equal to 5OO mg/dL Cholesterol 198 <200 mg/dL [facility] Comment:Desirable Cholestero l: less than 200 mg/dLBorderline High Cholesterol: 200-239 mg/dLHigh Cholesterol: greater than 239 mg/dL LDL Cholesterol Calculated 145(H) <100 mg/dL [facility] Comment:Desirable LDL: less than 100 mg/dLNear Optimal/Above Optimal LDL: 110- 129 mg/dLBorderline High LDL: 130-159 mg/dLHigh LDL: 160-189 mg/dLVery High LDL: greater than or equal to 190 mg/dL HDL Cholesterol 40(L) >40 mg/dL [facility] Comment:Desirable HDL: great er than 40 mg/dL Note: This HDL assay may give artificially low results in patients with liver disease. Blood Venous blood specimen / Unknown 04/30/2025 8:46 AM EDT 04/30/2025 11:44 AM EDT Elvie Hemphill MD LAB BLOOD ORDERABLES Final Result [facility] [address] [place] [phone] * Comprehensive Metabolic Panel (04/30/2025 8:46 AM EDT) Sodium 141 135 - 145 mmol/L [facility] Potassium 4.3 3.3 - 5.1 mmol/L [facility] Chloride 105 96 - 108 mmol/L [facility] Carbon Dioxide 28 22 - 29 mmol/L [facility] Anion Gap 12 12 - 20 [facility] Urea Nitrogen (BUN) 10 9 - 16 mg/dL [facility] Creatinine, Serum 0.84 0.5 - 1.4 mg/dL [facility] Estimated Glomerular Filt Rate >60 [facility] Comment:Chronic Kidney Disea se: Estimated GFR < 60 mL/min/1.44p0Ncvtpb Kidney Disease: Estimated GFR < 15 mL/min/1.73m2 Glucose 94 60 - 115 mg/dL [facility] Calcium 9.2 8.4 - 10.2 mg/dL [facility] Bilirubin, Total 0.4 0.0 - 1.0 mg/dL [facility] Aspartate Amino Transferase 17 5 - 31 U/L [facility] Alanine Aminotransferase 8 0 - 31 U/L [facility] Total Protein 7.5 6.5 - 8.0 g/dL [facility] Albumin Level 3.5 3.5 - 5.0 g/dL [facility] Alkaline Phosphatase 59 39 - 117 U/L [facility] Blood Venous blood specimen / Unknown 04/30/2025 8:46 AM EDT 04/30/2025 11:44 AM EDT us Elvie Hemphill MD LAB BLOOD ORDERABLES Final Result [facility] [address] [place] [phone] * BI Mammogram Screening Tomosynthesis Bilateral (04/29/2025 8:55 AM EDT) Anatomical Region Laterality Modality Breast Bilateral Mammography 04/29/2025 8:55 AM EDT Narrative 05/01/2025 5:59 PM EDT [address] [place] [address] Mammography Report Signed Patient: Stephanie Mcrae MR#: [id number] 250 : 1970 Acct:[id number] Age/Sex: 54 / F ADM Date: 04/29/25 Loc: HO.MAMMO Attending Dr: Elvie Hemphill MD Ordering Physician: Elvie Cleaning MD Results: 0Incomplete: Needs Additional Imaging Evaluation Date of Service: 04/29/25 Follow Up: Additional Imagi ng Procedure(s): MM tomosynthesis screening BI Accession Number(s): [id number] cc: Elvie Cleaning MD Reason For Exam: screening EXAMINATION: MM SCREENING DIGITAL BREAST TOMOSYNTHESIS, BILATERAL CLINICAL INFORMATION: Screening. Asymptomatic. COMPARISON: Mammography: Baseline. TECHNIQUE: Digital breast mammography with tomosynthesis is performed in both the craniocaudal and mediolateral oblique views along with computer-aided detection (CAD). FINDINGS: The breasts are heterogeneously dense, which may obscure small masses (ACR BI-RADS breast composition Category c). Right: Circumscribed oval mass upper central breast posterior depth. No suspicious calcifications or other abnormal findings. Left: There are no significant masses, abnormal calcifications, or other abnormalities. MM/MM tomosynthesis screening BI IMPRESSION: Additional imaging is recommended ASSESSMENT: BI-RADS BI-RADS 0 - Incomplete: Needs additional Imaging. RECOMMENDATION: 1. Additional views of the right breast. 2. Targeted ultrasound if warranted after review of the additional views. 3. Radiology department staff will contact the patient for additional imaging. Additional Imaging required This examination should not preclude the clinical evaluation of a suspicious palpable abnormality. This patient's information was entered into a reminder system with a target due date for their next mammogram. Electronically signed by: Dalia Bai DO 05/01/2025 05:56 PM EDT Dictated By: Dalia Bai DO Signed By: <Electronically signed by Dalia Bai DO in OV> 05/01/25 1756 DD/ 4 TD/TT: 04/29/25917 Lapping Machine Set Up Operator: Procedure Note Donotrosainterpreter, Image - 05/01/2025 [facility] [address] [place] [address] Mammography Report Signed Patient: Stephanie McraeMR#: [id number] 250 : 1970Acct:[id number] Age/Sex: 54 / FADM Date: 04/29/25 Loc: HO.MAMMO Attending Dr: Elvie Hemphill MD Ordering Physician: Elvie Cleaning MD Results: 0Incomplete: Needs Additional Imaging Evaluation Date of Service: 04/29/25Follow Up: Additional Imagi ng Procedure(s): MM tomosynthesis screening BI Accession Number(s): [id number] cc: Elvie Cleaning MD Reason For Exam: screening EXAMINATION: MM SCREENING DIGITAL BREAST TOMOSYNTHESIS, BILATERAL CLINICAL INFORMATION: Screening. Asymptomatic. COMPARISON: Mammography: Baseline. TECHNIQUE: Digital breast mammography with tomosynthesis is performed in both the craniocaudal and mediolateral oblique views along with computer-aided detection (CAD). FINDINGS: The breasts are heterogeneously dense, which may obscure small masses (ACR BI-RADS breast composition Category c). Right: Circumscribed oval mass upper central breast posterior depth. No suspicious calcifications or other abnormal findings. Left: There are no significant masses, abnormal calcifications, or other abnormalities. MM/MM tomosynthesis screening BI IMPRESSION: Additional imaging is recommended ASSESSMENT: BI-RADS BI-RADS 0 - Incomplete: Needs additional Imaging. RECOMMENDATION: 1. Additional views of the right breast. 2. Targeted ultrasound if warranted after review of the additional views. 3. Radiology department staff will contact the patient for additional imaging. Additional Imaging required This examination should not preclude the clinical evaluation of a suspicious palpable abnormality. This patient's information was entered into a reminder system with a target due date for their next mammogram. Electronically signed by: Dalia Bai DO 05/01/2025 05:56 PM EDT Dictated By: Dalia Bai DO Signed By: <Electronically signed by Dalia Bai DO in OV> 05/01/25 1756 DD/ TD/TT: 04/29/25917 Lapping Machine Set Up Operator: Elvie Hemphill MD IMG BI PROCEDURES Humberto allegra Result - Final * HPV mRNA E6/E7 w/Reflex to HPV Genotypes 16, 18/45 (04/06/2023 12:00 AM EDT) HPV nRNA E6/E7 Not Detected Not Detected [facility] Comment:Methodology: Transcr iption-Mediated AmplificationThis assay detects E6/E7 viral messenger RNA (mRNA) from 14high-risk HPV types (16,18,31,33,35,39,45,51,52,56,58,59,66,68).Cervical sources are required for HPV testing.If a vaginal source from a patient who has had atotal hysterectomy with removal of cervix wassubmitted, please contact the testing laboratoryfor alternative testing options.For additional information, please refer [email or web address](This link if provided for information/educational purposes only.)THIS TEST WAS PERFORMED AT:[facility] [place] [phone] SWARTZ MD HPV mRNA E6/E7 AZP [facility] HPV 16 RNA [facility] HPV 18/45 RNA [facility] 04/06/2023 04/09/2023 1:5 0 PM EDT us Elvie Hemphill MD LAB CYTOLOGY ORDERABL ES Final Result [facility] [address] [place] [phone] * Pap Smear (04/06/2023) 04/06/2023 04/09/2023 1:5 0 PM EDT Narrative [facility] - 04/21/2023 2:15 PM EDT ----- ------- Name: Stephanie Mcrae Age/Sex: 52/F : 1970 Unit#: [id number] Attend Dr: Elvie Cleaning MD Re04/06/23 Status: DEP REF Location: HO.HHCLNP Disch: ----- ------- SPEC : [id number] RECD: 04/09/23-324 STATUS: KIRT MENDEZ NUM: [id number] JUSTICE: 04/06/23- SUBM DR: Elvie Cleaning MD ENTERED: 04/10/23-926 SP TYPE: Pap Smr OTHR : ORDERED: Pap Smear Interpretation Satisfactory for evaluation. Negative for intraepithelial lesion or malignancy. HPV mRNA E6/E7: NOT DETECTED This assay detects E6/E7 viral messenger RNA (mRNA) from 14 high-risk HPV types (16, 18, 31, 33, 35, 39, 45, 51, 52, 56, 58, 59, 66, 68) HPV testing performed by [employer] [place], [place]. See reference laboratory portion of the EMR for entire report. Clinical Information LMP:Unknown date Previous PAP test:Unknown date/findings Material Received ThinPrep-Vaginal/Cervical ----- ------- Signed (signature on file) Isabela A Briana 04/21/23 1415 ----- ------- END OF REPORT Elvie Hemphill MD LAB CYTOLOGY ORDERABL ES Final Result [facility] [address] [place] [phone] from Last 3 Months or Most Recently Relevant to Health Maintenance Insurance [employer] C3 Care Teams Survey Chief Relationship Specialty Start Date End Date Elvie Cleaning MD [address] [place] [phone] PCP - General Family Medicine 04/24/18
== END 2025-06-05 10:38 | disposition home or self-care (01) ==
LOC: HO.MAMMO 10:37
PROVIDERS: PCP Internal Medicine; Visit Provider Internal Medicine
DX: N64.89 Other specified disorders of breast (principal)
CPT/HCPCS: 76642; 77061; 77065

== ENCOUNTER → 2025-06-05 11:00 | Outpatient (BNV) | payer MEDICAID, SELFPAY | PROVIDERS: PCP Internal Medicine; Visit Provider Internal Medicine | DX: R92.8 Other abnormal and inconclusive findings on diagnostic imaging of breast (principal) | CPT/HCPCS: 76642; 77061; 77065 ==

== ENCOUNTER 2025-06-29 09:43 | Outpatient (REF) | payer MEDICAID, SELFPAY ==
--- NOTE | ~2025-06-29 | XR_ITS ---
EXAMINATION: XR CHEST CLINICAL INFORMATION: chronic cough COMPARISON: December 12, 2024. TECHNIQUE: PA and lateral views. FINDINGS: Hyperinflated lungs. Pulmonary reticular nodular pattern. No consolidation, pleural effusion or pneumothorax. Cardiomediastinal silhouette size is normal. S-shaped curvature of the thoracolumbar spine. Multilevel thoracolumbar spondylosis. XR/XR chest 2V IMPRESSION: Chronic interstitial lung disease suggesting COPD emphysematous type changes. Superimposed acute small airway inflammatory process cannot be entirely excluded. Scoliosis and spondylosis, thoracolumbar spine. Electronically signed by: Balta Cunningham MD 06/29/2025 10:09 AM EST
== END 2025-06-29 09:44 | disposition home or self-care (01) ==
LOC: HO.XRAY 09:43
PROVIDERS: PCP Internal Medicine; Visit Provider Internal Medicine
DX: R05.3 Chronic cough (principal); R09.89 Other specified symptoms and signs involving the circulatory and respiratory systems
CPT/HCPCS: 71046

== ENCOUNTER → 2025-06-29 09:49 | Outpatient (BNV) | payer MEDICAID, SELFPAY | PROVIDERS: PCP Internal Medicine; Visit Provider Radiology Diagnostic Radiology | DX: J84.9 Interstitial pulmonary disease, unspecified (principal); M47.895 Other spondylosis, thoracolumbar region; M41.85 Other forms of scoliosis, thoracolumbar region | CPT/HCPCS: 71046 ==